=== PATIENT | male | born 1970 | race Caucasian/White ===

== ENCOUNTER 2019-11-29 23:18 | Emergency (ER) | payer OTHER, SELFPAY ==
--- NOTE | ~2019-11-29 | XR_ITS ---
EXAMINATION: XR chest 2V EXAM DATE: 11/30/2019 00:40 INDICATION: Cough, tactile fever. TECHNIQUE: Frontal and lateral projections of the chest obtained and reviewed. Comparison is made to prior examination from 07/31/2019. FINDINGS: The lungs are clear. There are no pleural effusions. The cardiomediastinal silhouette is within normal limits. There is no pneumothorax suspected. The bones and soft tissues are unremarkab le. IMPRESSION: Normal chest x-ray exam. Reviewed, dictated and finalized at location A. IMPRESSION: Normal chest x-ray exam.
[2019-11-29 23:24] VITALS: BP 188/119; PULSE 96; RESP 20; TEMP 36.3; O2SAT 98
[2019-11-29 23:38] VITALS: BP 176/103; PULSE 94; RESP 21; TEMP 37.3; O2SAT 98
[2019-11-29 23:50] VITALS: O2SAT 95
--- NOTE | 2019-11-29 23:50 | ED.URI ---
HPI - URI/Sore Throat General Chief Complaint: Upper Respiratory Infection Stated Complaint: COUGH Time Seen by Provider: 11/29/19 23:28 History of Present Illness HPI Narrative: 49-year-old male presents to the emergency department with complaint of cough, headache, chest wall pain, sore throat onset last night. Patient reports throat feels sore and swollen secondary to coughing so much. Nothing seems to make cough worse or better. He denies chest pain outside of coughing. He reports having tactile fevers, no chills. Has been taking NyQuil, melatonin, Tylenol, albuterol inhaler without relief. He denies any recent travel, exposure to anyone with illness. Related Data Allergies Allergy/AdvReac Type Severity Reaction Status Date / Time No Known Allergies Allergy Verified 11/29/19 23:43 Review of Systems Review of Systems: Narrative: CONSTITUTIONAL: Denies chills, reports tactile fevers. EYES: Denies visual changes, redness, or discharge. ENT: Denies rhinorrhea, congestion. Reports throat is sore secondary to coughing. CARDIOVASCULAR: Denies chest pain, palpitations, or edema. Reports chest wall pain with cough. RESPIRATORY: Reports intermittent productive cough since last night. GASTROINTESTINAL: Denies abdominal pain, nausea, vomiting, or diarrhea. GENITOURINARY: Denies dysuria or hematuria. SKIN: Denies rash or itching. MUSCULOSKELETAL: Denies back pain, joint pain, or myalgia. NEUROLOGIC: Denies numbness, or weakness. Reports headache. PSYCHIATRIC: Denies anxiety or depression. PMFSH Past Medical History Medical History (Updated 11/30/19 @ 02:55 by WALKER Booth) Asthma Bronchitis CAD (coronary artery disease) HLD (hyperlipidemia) HTN (hypertension) SVT (supraventricular tachycardia) Valvular heart disease Surgical History Surgical History (Updated 11/30/19 @ 02:55 by WALKER Booth) H/O heart artery stent x3 Family History Family History Mother Patient's mother is in good health Father Patient's father is Sibling Patient's brother is in good health Social History Social History Gender identity (if verbalized by the patient): Male Exam Narrative: Exam Narrative: GENERAL: Well-appearing, well-nourished, and in no acute distress. HEAD: Normocephalic, atraumatic. EYES: PERRLA and EOMI. ENT: Nares clear, no rhinorrhea or epistaxis. Mucous membranes moist. NECK: Supple. No cervical LAD. CHEST: Scattered wheezing to Rt lung moreno and diminished in bases bilat. No respiratory distress.No retractions. HEART: Regular rate and rhythm. No murmur heard. Normal peripheral pulses. ABDOMEN: Soft, nontender, nondistended, normal active bowel sounds. EXTREMITIES: Normal range of motion. No edema. SKIN: Warm, dry, no rash. NEURO: No focal deficits. Alert and oriented x3. PSYCH: Normal mood and affect. Course Course Emergency Course: Pt reports feeling much better after nebulizer. Lungs with increased aeration, wheezing scattered throughout bilat. Will order an additional neb and give PO prednisone and reassess. 0235- Pt states feeling much better with second nebulizer. Minimal coughing noted and lungs with even more aeration and very essentially CTAB. States has headache and requesting pain medication. Will order Toradol prior to d/c home. Vital Signs Vital signs: Vital Signs Temperature 36.3 C L 11/29/19 23:24 Pulse Rate 96 11/29/19 23:24 Respiratory Rate 20 11/29/19 23:24 Blood Pressure 188/119 H 11/29/19 23:24 Pulse Oximetry 98 11/29/19 23:24 Temperature 37.3 C 11/29/19 23:38 Pulse Rate 91 11/30/19 02:18 Respiratory Rate 14 11/30/19 02:18 Blood Pressure 145/104 H 11/30/19 02:00 Pulse Oximetry 99 11/30/19 02:00 MDM - URI/Sore Throat MDM Narrative Medical decision making narrative: Pt presented with 2 day hx of cough, headache and possible tactile fever. Has be
[2019-11-30] VITALS (8 sets, daily range): BP systolic 138–147; BP diastolic 92–104; PULSE 82–105; RESP 14–20; O2SAT 97–99
[2019-11-30] MEDS: IPRATROPIUM BR 0.02% INH SOLN 0.5 MG/2.5 ML VIAL INHALATION (00:06)
[2019-11-30] MEDS: ALBUTEROL SULFATE NEB 2.5 MG/0.5 ML INH 5 MG INHALATION ×2 (00:06→02:06)
[2019-11-30] MEDS: predniSONE 20 MG TABLET 60 MG PO (02:24)
[2019-11-30] MEDS: KETOROLAC (*BKC) 60 MG/2 ML VIAL IM (02:49)
== END 2019-11-30 02:55 | disposition home or self-care (01) ==
PROVIDERS: Emergency Provider Nurse Practitioner; PCP Emergency Medicine
DX: J40 Bronchitis, not specified as acute or chronic (principal); I25.10 Atherosclerotic heart disease of native coronary artery without angina pectoris; E78.5 Hyperlipidemia, unspecified; I10 Essential (primary) hypertension
CPT/HCPCS: 71046; 87804; 94640; 96372; 99284; J1885; J7512

== ENCOUNTER 2020-06-19 04:34 | Emergency (ER) | payer OTHER, SELFPAY ==
[2020-06-19] VITALS (7 sets, daily range): BP systolic 141–178; BP diastolic 86–99; PULSE 63–75; RESP 15–18; O2SAT 97–100
--- NOTE | ~2020-06-19 | XR_ITS ---
XR chest 2V DATE: 06/19/2020 05:06 INDICATION: Midline chest pain for 4 hours TECHNIQUE: PA and lateral views COMPARISON: 11/30/2019 PA and lateral chest FINDINGS: Heart size is within normal range. No hilar or mediastinal enlargement. No pulmonary infiltrate or consolidation, pleural effusion or pulmonary vascular congestion or pneumo thorax. IMPRESSION: No active cardiopulmonary disease Reviewed, dictated and finalized at location A.
--- NOTE | ~2020-06-19 | US_ITS ---
EXAMINATION: US right upper quadrant EXAM DATE: 06/19/2020 07:58 INDICATION: Right upper quadrant, epigastric pain. TECHNIQUE: Multiple grayscale and Doppler images of the abdomen right upper quadrant were obtained (b y a technologist who performed the scan) and subsequently reviewed. Comparison is made to prior exami nation from 08/14/2018. FINDINGS: The pancreatic head and body are normal in appearance. The pancreatic tail is not visualized. The l iver has normal echogenicity and contour. There are no focal liver lesions identified. There is no evidence of intrahepatic biliary duct dilation. Portal venous flow was seen in the hepatopedal, nor mal direction and has normal Doppler waveform. No right-sided hydronephrosis. Common bile duct measures 5 mm, which is normal. The gallbladder wall is borderline thickened, with m oderate amount of distention. Similar appearance on study from 2018. No sonographic evidence of alverto cholecystic fluid. There is no cholelithiases. Technologist performing exam reports patient did not demonstrate sonographic Hernandez's sign. Please note that this sign is less reliable in patients who h ave received pain medication. IMPRESSION: Borderline chronic gallbladder wall thickening. If biliary dysfunction or chronic cystiti s suspected consider HIDA scan. Reviewed, dictated and finalized at location B. IMPRESSION: Borderline chronic gallbladder wall thickening. If biliary dysfunct ion or chronic cystitis suspected consider HIDA scan.
--- NOTE | 2020-06-19 04:38 | ECG_ITS ---
Measurements Intervals [place] Rate: 73 P: 8 [place]: 194 QRS: -29 QRSD: 110 T: -10 QT: 379 QTc: 419 Interpretive Statements SINUS RHYTHM LEFT ATRIAL ENLARGEMENT INCOMPLETE RIGHT BUNDLE BRANCH BLOCK BORDERLINE T WAVE ABNORMALITY- ANT/INF LEADS BASELINE WANDER- I, II, AVR, AVL, AVF, V1-V6 BORDERLINE ECG Electronically Signed On 06-19-2020 6:53:02 CDT by Kelton Schmidt D.O.
[2020-06-19 04:54] LABS: Basophils Percent Auto 0.4 % (0.2-1.2); Eosinophils Absolute Auto 0.1 K/mm3 (0-0.3); Eosinophils Percent Auto 1.6 % (0-4.4); Hematocrit 46.6 % (42.0-52.0); Hemoglobin 16.5 g/dL (14.0-18.0); Immature Granulocyte Absolute 0.04 K/mm3 (0.00-0.031); Immature Granulocyte Percent A 0.4 % (0-0.5); Lymphocytes Percent Auto 25.8 % (18.3-44.2); Mean Corpuscular HGB Conc 35.4 g/dl (32-36); Mean Corpuscular Hemoglobin 32.2 pg (26-34); Mean Platelet Volume 9.4 fl (7.4-10.4); Monocytes Absolute Auto 0.9 K/mm3 (0.1-0.6); Monocytes Percent Auto 10.1 % (2.6-8.5); Neutrophils Absolute Auto 5.5 K/mm3 (1.3-6.7); Neutrophils Percent Auto 61.7 % (45.5-73.1); Platelet Count Result 217 k/mm3 (150-375); Red Blood Count 5.12 M/mm3 (4.6-6.20); Red Cell Distribution Width 11.9 % (11.5-14.5); White Blood Count 8.9 K/mm3 (4.5-10.0)
[2020-06-19] MEDS: ASPIRIN 81 MG CHEWABLE TABLET 324 MG PO (04:57)
[2020-06-19] MEDS: BELLADONNA ALK/PHENOB ELIX 10 ML, MAG HYDROX/ALUMINUM HYD/SIMETH 30 ML, LIDOCAINE HCL 2... PO (04:57)
[2020-06-19 05:03] LABS: INR 0.9; Prothrombin Time 11.7 Seconds (11.1-14.7)
[2020-06-19 05:06] LABS: Anion Gap 10 mmol/L (8-16); Blood Urea Nitrogen 17 mg/dL (9-20); Calcium 9.6 mg/dL (8.4-10.2); Carbon Dioxide 30 mmol/L (22-30); Chloride 99 mmol/L (98-107); Estimated CRCL calculation 67 ml/min; Estimated Glomerular Filt Rate > 60; Glucose 101 mg/dL (75-110); Potassium 4.1 mmol/L (3.4-5.0); Sodium 139 mmol/L (137-145)
[2020-06-19 05:18] LABS: Troponin I < 0.012 ng/mL (0.000-0.034)
[2020-06-19] MEDS: MORPHINE SULFATE (*CRX) 4 MG/ML INJ IV PUSH (06:07)
--- NOTE | 2020-06-19 06:16 | ED.GENADULT ---
HPI - General Adult General Chief complaint: Chest Pain <Dorian Preston MD - Last Filed: 06/19/20 06:46> Stated complaint: chest pain <Dorian Preston MD - Last Filed: 06/19/20 06:46> Time Seen by Provider: 06/19/20 04:40 <Dorian Preston MD - Last Filed: 06/19/20 06:46> History of Present Illness HPI narrative: Patient is a 49-year-old male who comes to the ER with epigastric/chest pain. Recurrent over the last day anytime he eats spicy food. He is unsettling tonight he felt like he needed to come into the ER to be evaluated. No radiation. Patient reports originally the night before last he had nausea and vomiting as well as some loose stools. Has not tried any medications. Has significant heart history and this feels markedly different. <Dorian Preston MD - Last Filed: 06/19/20 06:46> Related Data Allergies/adverse reactions: Allergies Allergy/AdvReac Type Severity Reaction Status Date / Time No Known Allergies Allergy Verified 11/29/19 23:43 <Dorian Preston MD - Last Filed: 06/19/20 06:46> Review of Systems Review of Systems: All systems reviewed & are unremarkable except as noted in HPI and below <Dorian Preston MD - Last Filed: 06/19/20 06:46> Constitutional: Constitutional: Denies chills, Denies fever(s) and Denies weakness <Dorian Preston MD - Last Filed: 06/19/20 06:46> ENT: Denies nasal congestion and Denies sore throat <Dorian Preston MD - Last Filed: 06/19/20 06:46> Cardiovascular: Cardiovascular: Denies chest pain, Denies rapid heart rate and Denies radiating jaw, neck or arm pain <Dorian Preston MD - Last Filed: 06/19/20 06:46> Respiratory: Respiratory: Denies cough and Denies dyspnea <Dorian Preston MD - Last Filed: 06/19/20 06:46> Gastrointestinal: Gastrointestinal: Reports abdominal pain, Reports diarrhea, Reports nausea and Reports vomiting <Dorian Preston MD - Last Filed: 06/19/20 06:46> Genitourinary: Genitourinary: Denies dysuria and Denies urinary frequency <Dorian Preston MD - Last Filed: 06/19/20 06:46> PMFSH Past Medical History Medical History: Medical History (Updated 06/19/20 @ 10:28 by Maine Herring MD) Asthma Bronchitis CAD (coronary artery disease) HLD (hyperlipidemia) HTN (hypertension) SVT (supraventricular tachycardia) Valvular heart disease <Dorian Preston MD - Last Filed: 06/19/20 06:46> Surgical History Surgical History: Surgical History (Updated 11/30/19 @ 02:55 by WALKER Booth) H/O heart artery stent x3 <Dorian Preston MD - Last Filed: 06/19/20 06:46> Social History Social History: Social History Gender identity (if verbalized by the patient): Male <Dorian Preston MD - Last Filed: 06/19/20 06:46> Exam Narrative: Exam Narrative: GENERAL: Well-appearing, well-nourished, and in no acute distress. HEAD: Normocephalic, atraumatic. ENT: Mucous membranes moist. CHEST: Clear to auscultation. No respiratory distress. HEART: Regular rate and rhythm. Normal peripheral pulses. ABDOMEN: Soft, mild epigastric and right upper quadrant tenderness without Heranndez sign, nondistended. EXTREMITIES: Normal range of motion. No edema. NEURO: Alert and oriented x3. PSYCH: Normal mood and affect. <Dorian Preston MD - Last Filed: 06/19/20 06:46> Course Course Emergency Course: Patient still has some mild discomfort in his epigastrium after GI cocktail and morphine. Will obtain ultrasound right upper quadrant to rule out cholecystitis/biliary colic. <Dorian Preston MD - Last Filed: 06/19/20 06:46> Reevaluation(s) Reevaluation #1: I discussed with patient that labs are unremarkable. HE has some mild RUQ tenderness. Gallbladder with mildly thickened. I spoke with General surgeon Dr. Gannon and he recommends discharging with pain medication on low fat diet with outpatient follow up. <Maine Herring MD - Last Filed:
[2020-06-19 06:21] LABS: Alanine Aminotransferase 54 U/L (4-50); Albumin Level 4.6 g/dL (3.5-5.1); Alkaline Phosphatase 93 U/L (38-126); Aspartate Amino Transferase 41 U/L (17-59); Bilirubin,Total 0.6 mg/dL (0.2-1.3); Lipase 196 U/L (23-300)
[2020-06-19] MEDS: DICYCLOMINE HCL INJ 20 MG/2 ML VIAL IM (09:28)
[2020-06-19 09:34] LABS: Troponin I < 0.012 ng/mL (0.000-0.034)
== END 2020-06-19 10:40 | disposition home or self-care (01) ==
PROVIDERS: Emergency Provider Emergency Medicine; PCP Emergency Medicine
DX: R10.13 Epigastric pain (principal); J45.909 Unspecified asthma, uncomplicated; I25.10 Atherosclerotic heart disease of native coronary artery without angina pectoris; E78.5 Hyperlipidemia, unspecified; I10 Essential (primary) hypertension; Z95.5 Presence of coronary angioplasty implant and graft; I45.10 Unspecified right bundle-branch block
CPT/HCPCS: 36415; 71046; 76705; 80048; 80076; 83690; 84484; 85025; 85610; 85730; 93005; 96372; 96374; 99284; A9270; J0500; J2270

== ENCOUNTER 2020-10-10 18:26 | Emergency (ER) | payer OTHER, SELFPAY ==
--- NOTE | 2020-10-10 18:37 | ED.GENADULT ---
HPI - General Adult General Chief complaint: Dental/Oral Stated complaint: Tooth Pain Time Seen by Provider: 10/10/20 18:38 Source: patient and RN notes reviewed Mode of arrival: ambulatory Limitations: no limitations History of Present Illness HPI narrative: 50-year-old male presents with concern for right upper dental pain. Reports of broken tooth for which he has had infection in before. Reports he has a dentist appointment in 2 days and knows he needs to have oral surgery for the tooth. Reports pain with eating, reports facial pain and pressure. Denies fever, trouble swallowing, foul taste in his mouth, headache. Reports he has been taking ibuprofen and Tylenol and using warm salt water rinses. MD complaint: dental pain Related Data Home Medications Medication Instructions Recorded Confirmed atorvastatin 40 mg PO DAILY 09/19/19 10/10/20 citalopram [Celexa] 20 mg PO DAILY 09/19/19 10/10/20 metoprolol tartrate [Lopressor] 50 mg PO Q12H 09/19/19 10/10/20 mecobalamin (vitamin B12) [B12 1,000 mcg PO DAILY 10/10/20 10/10/20 Active] Allergies Allergy/AdvReac Type Severity Reaction Status Date / Time No Known Allergies Allergy Unknown Verified 08/02/20 11:52 Review of Systems Review of Systems: Narrative: CONSTITUTIONAL: Denies malaise, chills, sweats, or fever. EYES: Denies visual changes, redness, or discharge. ENT: Denies rhinorrhea, congestion, sinus pain, otalgia or sore throat. Reports right upper dental pain, facial swelling, facial pain CARDIOVASCULAR: Denies chest pain, palpitations, or edema. RESPIRATORY: Denies cough or dyspnea. GASTROINTESTINAL: Denies abdominal pain, nausea, vomiting MUSCULOSKELETAL: Denies myalgia. NEUROLOGIC: Denies headache. All systems reviewed & are unremarkable except as noted in HPI and below PMFSH Past Medical History Medical History (Updated 10/10/20 @ 18:48 by Jeanie Judd NP) Asthma Bronchitis CAD (coronary artery disease) HLD (hyperlipidemia) HTN (hypertension) Hypercholesterolemia Hypertension SVT (supraventricular tachycardia) Valvular heart disease Surgical History Surgical History (Updated 08/02/20 @ 11:52 by Mauricio Parks) H/O heart artery stent x3 History of tonsillectomy Family History Family History (System 08/02/20 @ 11:52 by Mauricio Parks) Mother Patient's mother is in good health Father Patient's father is Sibling Patient's brother is in good health Social History Social History (System 08/02/20 @ 11:52 by Mauricio Parks) Smoking packs per day: 0.12 Smoking cigarettes per day: 2.4 Gender identity (if verbalized by the patient): Male Comments At time of signature, agree with nursing past medical, surgical, social and family history. There is no relevant family history pertinent to the presenting complaint Exam Narrative: Exam Narrative: GENERAL: Well-appearing, well-nourished, and in no acute distress. HEAD: Normocephalic, atraumatic. EYES: PERRLA, conjunctivae clear ENT: Nares clear. Mucous membranes moist. Tooth #4 broken, with decay, erythema surrounding the gum, mild right upper facial swelling. No drooling NECK: Supple. CHEST: No respiratory distress. Speaks in full sentences. HEART: Regular rate and rhythm. SKIN: Warm, dry, no rash. NEURO: Alert and oriented x3. PSYCH: Normal mood and affect Course Course Emergency Course: Patient is aware of diagnosis, understands and agrees to treatment plan. Anticipatory guidance given. Patient agrees to follow-up as directed and is aware of reasons to seek care at the emergency department. Portions of this record may have been created with voice recognition software Vital Signs Vital signs: Vital Signs Temperature 97.6 F 10/10/20 18:40 Pulse Rate 69 10/10/20 18:40 Respiratory Rate 18 10/10/20 18:40 Blood Pressure 124/81 10/10/20 18:40 Pulse Oximetry 98 10/10/20 18:40 Temperature 97.6 F 10/10/20 18:40 Pulse Rate 69
[2020-10-10 18:40] VITALS: BP 124/81; PULSE 69; RESP 18; TEMP 36.4; O2SAT 98
== END 2020-10-10 18:49 | disposition home or self-care (01) ==
PROVIDERS: Emergency Provider Nurse Practitioner; PCP Emergency Medicine
DX: K04.7 Periapical abscess without sinus (principal); F17.210 Nicotine dependence, cigarettes, uncomplicated; J45.909 Unspecified asthma, uncomplicated; I25.10 Atherosclerotic heart disease of native coronary artery without angina pectoris; E78.5 Hyperlipidemia, unspecified; I10 Essential (primary) hypertension; E78.00 Pure hypercholesterolemia, unspecified
CPT/HCPCS: 99213; G0463

== ENCOUNTER 2020-11-08 11:36 | Outpatient (CLI) | payer OTHER, SELFPAY ==
--- NOTE | ~2020-11-08 | NM_ITS ---
EXAMINATION: NM hepatobiliary w pharm DATE: 11/08/2020 14:42 INDICATION: Abdominal pain. COMPARISON: Ultrasound 06/19/2020 TECHNIQUE: 4 mCi Tc-99m mebrofenin (Choletec) was administered intravenously. Scintigraphic images o f the abdomen were obtained for one hour. Then, 1.8 mcg sincalide (Kinevac) IV was administered, and imaging was continued for 30 minutes. FINDINGS: There is normal clearance of radiotracer from the blood pool. There is homogeneous tracer u ptake by the liver. Activity progresses to the bowel and gallbladder. Gallbladder ejection fraction (GBEF) was 33%. Note that most patients with gallbladder dysfunction have GBEF < 35%, which overlaps with the broad normal range of 10-90%. IMPRESSION: 1. Gallbladder ejection fraction in the lower range of normal. Note that this value overlaps with th e range of values that may be seen with gallbladder dysfunction and/or chronic cholecystitis if there is appropriate clinical correlation. Reviewed, dictated and finalized at location A. RING SERVICE MANAGER IMPRESSION: 1. Gallbladder ejection fraction in the lower range of normal. Note that this value overlaps with the range of values that may be seen with gallbladder dysfu nction and/or chronic cholecystitis if there is appropriate clinical correlatio nMoody
== END 2020-11-08 11:37 | disposition home or self-care (01) ==
LOC: ANHIMG 11:42
PROVIDERS: PCP Emergency Medicine; Visit Provider Emergency Medicine
DX: R10.9 Unspecified abdominal pain (principal); K82.8 Other specified diseases of gallbladder
CPT/HCPCS: 78227; A9537; J2805

== ENCOUNTER 2020-11-26 09:43 | Emergency (ER) | payer OTHER, SELFPAY ==
--- NOTE | ~2020-11-26 | XR_ITS ---
EXAMINATION: XR chest 2V DATE: 11/26/2020 10:35 INDICATION: Chest pain. Shortness of breath. TECHNIQUE: PA and lateral views of the chest were obtained. COMPARISON: Chest radiograph dated 06/19/2020 FINDINGS: The lungs remain clear with no focal airspace opacities, pulmonary edema, pleural effusion or pneumot horax. The cardiomediastinal silhouette is normal. Mild thoracic spondylosis. IMPRESSION: 1. No acute cardiopulmonary disease. Reviewed, dictated and finalized at location B.
--- NOTE | 2020-11-26 09:59 | ED.GENADULT ---
HPI - General Adult General Chief complaint: Upper Respiratory Infection Stated complaint: Side pain,Chest Pain Time Seen by Provider: 11/26/20 09:59 Source: patient Mode of arrival: ambulatory Limitations: no limitations History of Present Illness HPI narrative: 50-year-old male patient presents to the [facility] with complaints of cold symptoms for the past 2 days. Patient states he has had a stuffy nose, runny nose, and headache. Patient also reports a little bit of a cough, chest congestion and left-sided chest pain. Patient states this is all been going on for the past 2 days. Patient states he did attend a celebration of life over the weekend with 50+ people and they did have a lot of close contact at that time. Patient denies being positive for Covid in the last 3 months. Patient denies getting a Covid vaccine. Patient also reporting some abdominal cramping but states he is still passing normal bowel movements and his last normal one was this morning. Denies any vomiting or diarrhea. Patient was told that he did have some gallbladder issues and that he needs his gallbladder removed. Patient states the only thing he is taking for his symptoms is Nexium for the abdominal cramping. Patient also reports that he is currently on amoxicillin for an abscessed tooth. Related Data Home Medications Medication Instructions Recorded Confirmed alprazolam [Xanax] 0.25 mg PO Q4-6H 11/26/20 11/26/20 amoxicillin [Amoxil] 875 mg PO Q12H 11/26/20 11/26/20 atorvastatin [Lipitor] 40 mg PO DAILY 11/26/20 11/26/20 citalopram [Celexa] 20 mg PO DAILY 11/26/20 11/26/20 hydrocodone-acetaminophen [[place]] 1 tablet PO Q6H 11/26/20 11/26/20 metoprolol succinate [Toprol XL] 50 mg PO BID 11/26/20 11/26/20 Allergies Allergy/AdvReac Type Severity Reaction Status Date / Time No Known Allergies Allergy Unknown Verified 11/26/20 10:24 Review of Systems Review of Systems: Narrative: CONSTITUTIONAL: Denies fever, chills, or sweats. Positive body aches EYES: Denies visual changes, redness, or discharge. ENT: Positive rhinorrhea, congestion, denies sore throat, or otalgia. CARDIOVASCULAR: Denies chest pain, palpitations, or edema. RESPIRATORY: Positive cough with mild intermittent dyspnea. GASTROINTESTINAL: Positive abdominal pain, denies nausea, vomiting, or diarrhea. GENITOURINARY: Denies dysuria or hematuria. SKIN: Denies rash or itching. MUSCULOSKELETAL: Denies back pain, joint pain, or myalgia. NEUROLOGIC: Positive headache, denies numbness, or weakness. PSYCHIATRIC: Denies anxiety or depression. [facility] Past Medical History Medical History Asthma Bronchitis CAD (coronary artery disease) HLD (hyperlipidemia) HTN (hypertension) Hypercholesterolemia Hypertension SVT (supraventricular tachycardia) Valvular heart disease Surgical History Surgical History H/O heart artery stent x3 History of tonsillectomy Family History Family History Mother Patient's mother is in good health Father Patient's father is Sibling Patient's brother is in good health Social History Social History Smoking packs per day: 0.12 Smoking cigarettes per day: 2.4 Gender identity (if verbalized by the patient): Male Comments At the time of my signature I agree with nursing past medical history, surgical, social, and family history. There is no relevant family history pertinent to the presenting complaint. Exam Narrative: Exam Narrative: GENERAL: Well-appearing, well-nourished, and in no acute distress. HEAD: Normocephalic, atraumatic. EYES: PERRLA and EOMI. ENT: Nares with erythema and edema noted bilaterally but more so into the right nare, no rhinorrhea or epistaxis. Mucous membranes moist. Bilateral TMs are clear no
[2020-11-26 10:10] VITALS: BP 137/100; PULSE 67; RESP 16; TEMP 36.7; O2SAT 98
--- NOTE | 2020-11-26 10:37 | ECG_ITS ---
Measurements Intervals [place] Rate: 62 P: 14 [place]: 202 QRS: 11 QRSD: 123 T: 30 QT: 391 QTc: 400 Interpretive Statements SINUS RHYTHM POSSIBLE LEFT ATRIAL ENLARGEMENT INCOMPLETE RIGHT BUNDLE BRANCH BLOCK BORDERLINE ECG Electronically Signed On 11-26-2020 15:21:11 CDT by Kelton Schmidt D.O.
[2020-11-27 14:35] LABS: SARS-CoV-2 RNA PCR Negative
== END 2020-11-26 10:50 | disposition home or self-care (01) ==
PROVIDERS: Emergency Provider Nurse Practitioner Family; PCP Emergency Medicine
DX: J06.9 Acute upper respiratory infection, unspecified (principal); Z20.822 Contact with and (suspected) exposure to COVID-19; F17.210 Nicotine dependence, cigarettes, uncomplicated; J45.909 Unspecified asthma, uncomplicated; I25.10 Atherosclerotic heart disease of native coronary artery without angina pectoris; E78.5 Hyperlipidemia, unspecified; I10 Essential (primary) hypertension; E78.00 Pure hypercholesterolemia, unspecified
CPT/HCPCS: 71046; 87426; 87804; 93005; 99213; C9803; G0463; U0003; U0005

== ENCOUNTER → 2020-12-16 00:22 | Outpatient (CLI) | payer OTHER, SELFPAY ==
[2020-12-16 19:28] LABS: SARS-CoV-2 RNA PCR Negative
== END ==
PROVIDERS: PCP Emergency Medicine; Visit Provider Surgery
DX: Z01.812 Encounter for preprocedural laboratory examination (principal); Z20.822 Contact with and (suspected) exposure to COVID-19
CPT/HCPCS: 80076; 82150; 83690; 86850; 86900; 86901; C9803; U0003; U0005

== ENCOUNTER 2020-12-16 08:19 | Outpatient (CLI) | payer OTHER, SELFPAY ==
[2020-12-16 08:51] LABS: Alanine Aminotransferase 92 U/L (4-50); Albumin Level 4.5 g/dL (3.5-5.1); Alkaline Phosphatase 86 U/L (38-126); Amylase 61 U/L (30-110); Aspartate Amino Transferase 54 U/L (17-59); Bilirubin,Total 1.4 mg/dL (0.2-1.3); Lipase 140 U/L (23-300)
== END 2020-12-16 08:20 | disposition home or self-care (01) ==
PROVIDERS: PCP Emergency Medicine; Visit Provider Surgery
DX: Z01.812 Encounter for preprocedural laboratory examination (principal); K81.9 Cholecystitis, unspecified
CPT/HCPCS: 36415; 80076; 82150; 83690; 86850; 86900; 86901

== ENCOUNTER 2020-12-19 01:42 | Day surgery (SDC) | payer OTHER, SELFPAY ==
[2020-12-13 10:04] VITALS: BMI 29.2
[2020-12-19] VITALS (11 sets, daily range): BP systolic 109–177; BP diastolic 70–108; PULSE 54–78; RESP 16–20; TEMP 36–37; O2SAT 94–100
--- NOTE | 2020-12-19 10:45 | WPDANESEPPF ---
Anes - Initial Pre Proc Eval Procedure: Operation Date: 12/19/20 12:00 Proposed Procedures p Laparoscopic Cholecystectomy - Melania Lopez MD Date/Time: 12/19/20 10:45 Surgeon: Melania Lopez MD Pre Op Diagnosis: cholecystitis Patient Data Age: 50 Gender: M Height: 5 ft 6 in Weight: 83 kg Allergies Allergy/AdvReac Type Severity Reaction Status Date / Time No Known Allergies Allergy Unknown Verified 12/19/20 10:30 Home Medications Medication Instructions Recorded Confirmed Type albuterol sulfate [Ventolin HFA] 2 puff INHALATION .Q4 hours PRN 11/26/20 12/19/20 Rx #18 gm alprazolam [Xanax] 0.25 mg PO Q4-6H 11/26/20 12/19/20 History atorvastatin [Lipitor] 40 mg PO DAILY 11/26/20 12/19/20 History benzonatate 200 mg PO TID PRN 10 Days #30 cap 11/26/20 12/19/20 Rx NS cetirizine [Zyrtec] 10 mg PO DAILY #30 tablet 11/26/20 12/19/20 Rx citalopram [Celexa] 20 mg PO DAILY 11/26/20 12/19/20 History hydrocodone-acetaminophen [[place]] 1 tablet PO Q6H 11/26/20 12/19/20 History metoprolol succinate [Toprol XL] 50 mg PO BID 11/26/20 12/19/20 History Patient hx anesthesia problems: none Family hx anesthesia problems: none PMFSH Past Medical History Medical History Asthma Bronchitis CAD (coronary artery disease) Heart attack HLD (hyperlipidemia) HTN (hypertension) Hypercholesterolemia Hypertension Mitral valve prolapse SVT (supraventricular tachycardia) Valvular heart disease Surgical History Surgical History H/O heart artery stent x3 History of tonsillectomy Family History Family History Mother Patient's mother is in good health Father Patient's father is Lung disease Sibling Patient's brother is in good health Social History Social History Smoking packs per day: 1 Smoking cigarettes per day: 20.0 Years smoked: 20 Smoking pack-years: 20.00 Smoking status: Current every day smoker Tobacco type: cigarettes Additional smoking assessment comments: STOPPED 2013 Alcohol intake: current Drinks per week: 4 Substance use: never Living arrangements: with family 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 Questions were solicited and answers provided to the satisfaction of the patient/family/POA.
[2020-12-19] MEDS: LACTATED RINGERS 1,000 ML 30 ML IV CONT ×2 (10:54→12:54)
[2020-12-19] MEDS: KETOROLAC 15 MG/ML VIAL (*BKC) IV PUSH (10:54)
--- NOTE | 2020-12-19 11:57 | WPDHPUPDATE1 ---
History and Physical Update Update Date/Time: 12/19/20 11:57 History and Physical has been reviewed, including an updated exam of the patient. There are NO changes in the patient's condition. Risks, benefits, and alternatives have been discussed and questions answered. Patient agrees to proceed with procedure.
[2020-12-19] MEDS: ceFAZolin 2 GM/D5W 50 ML 2 GM/50 ML BAG IVPB (12:02)
[2020-12-19] MEDS: BUPIVACAINE/EPINEPHRINE 0.5% 30 ML VIAL INFILTRATE (12:31)
--- NOTE | 2020-12-19 12:55 | PM.PROC ---
Procedure Note - Detailed Date of procedure: 12/19/20 Pre-op diagnosis: cholecystitis acute cholecystitis Post-op diagnosis: same Procedure performed: laparoscopic cholecystectomy Description of procedure: The patient was taken to the operating room placed in the supine position. After adequate induction of general anesthesia, the patient was prepped and draped in normal sterile fashion. A time-out was then performed to verify the patient's identity as well as the procedure being performed. I then made a 5 mm incision in the infraumbilical region. Through this, a Veress needle was placed into the peritoneal cavity and CO2 gas was then insufflated. After adequate pneumoperitoneum was achieved, the Veress needle was removed and a 5 mm optiview trocar was placed through this incision under direct visualization. I then placed the laparoscope through this trocar site and under direct visualization placed a further 12 mm subxiphoid port as well as 2 additional 5 mm ports in the right upper abdomen. The gallbladder was then identified and was noted to be moderately inflamed. I was able to place a grasper at the dome of the gallbladder and this was retracted anterior and cephalad up over the liver. A 2nd retractor was then placed at the infundibulum and retracted laterally, this allowed visualization of the triangle of Calot. I then was able to visualize the cystic duct in its entirety from its proximal insertion into the gallbladder, to its distal junction with the common hepatic/common bile duct junction. At this point, I carefully skeletonized the proximal cystic duct with the [place] dissector. I then clipped and transected the proximal cystic duct. Next I visualized the cystic artery. Again the artery was skeletonized, clipped, and transected. I then used the Bovie cautery to take down the peritoneal attachments of the gallbladder off the liver bed. Once the gallbladder specimen was completely detached, an endo-pouch was placed through the 12 mm port site. I then placed the gallbladder specimen into the Endo pouch and removed the endo-pouch from the 12 mm port site. The specimen will now be sent to pathology for further review. I then copiously irrigated the right upper quadrant. Hemostasis was noted in the liver bed, the clips were noted to be in good position on both the cystic duct stump and the cystic artery stump. No other pathology was noted in the right upper quadrant. I then moved the laparoscope to the subxiphoid port. No iatrogenic injury or other pathology was noted in the lower abdomen. I then closed the 12 mm trocar site under direct visualization using the Avinash cone and 0 Vicryl suture. At this point, the abdomen was desufflated and all ports removed. All port sites were then closed with 4.O Monocryl subcuticular sutures. Dermabond was placed on each incision. The patient tolerated the procedure well, was extubated in the operating room postoperative and will be transferred to the recovery room in stable condition. Implants: none Anesthesia: GETA Surgeon: Melania Lopez MD Estimated blood loss (mL): 10 Drains: No Packing: No Pathology: yes Complications: No immediate complications Condition: stable Disposition: PACU Findings: chronic cholecystitis
[2020-12-19] MEDS: hydrALAZINE HCL 20 MG/ML VIAL 10 MG IV PUSH (13:23)
[2020-12-19] MEDS: fentaNYL CITRATE INJ (*CRX) 100 MCG/2 ML VIAL 25 MCG IV PUSH ×6 (13:39→15:10)
[2020-12-19] MEDS: oxyCODONE HCL (*CRX) 5 MG TAB IR PO (14:26)
== END 2020-12-19 15:45 | disposition home or self-care (01) ==
PROVIDERS: PCP Emergency Medicine; Visit Provider Surgery
PROC: 0FT44ZZ Resection of Gallbladder, Percutaneous Endoscopic Approach (ICD-10-PCS; CPT 47562; principal; 2020-12-19 12:00)
DX: K81.1 Chronic cholecystitis (principal); J45.909 Unspecified asthma, uncomplicated; I10 Essential (primary) hypertension; E78.5 Hyperlipidemia, unspecified; I25.10 Atherosclerotic heart disease of native coronary artery without angina pectoris; I25.2 Old myocardial infarction; I34.1 Nonrheumatic mitral (valve) prolapse; I47.1 Supraventricular tachycardia; Z79.51 Long term (current) use of inhaled steroids; Z95.5 Presence of coronary angioplasty implant and graft; Z87.891 Personal history of nicotine dependence
CPT/HCPCS: 47562; 88304; A9270; J0360; J0690; J1100; J1885; J2250; J2370; J2405; J2704; J2710; J3010; J7030; J7120

== ENCOUNTER 2021-03-13 18:21 | Emergency (ER) | payer OTHER, SELFPAY ==
[2021-03-13 18:30] VITALS: BP 135/95; PULSE 87; RESP 16; TEMP 37.1; O2SAT 97
--- NOTE | 2021-03-13 18:31 | ED.DENTAL ---
HPI - Dental/Oral General Chief complaint: Upper Respiratory Infection Stated complaint: Congestion,Tooth Pain Time Seen by Provider: 03/13/21 18:31 Source: patient and RN notes reviewed Mode of arrival: ambulatory Limitations: no limitations History of Present Illness HPI Narrative: 50-year-old male presents to the [facility] with complaints of dental pain and sinus pain on the right side. Patient does state that he has not been able to follow up with a dental provider due to insurance reasons. Has had a cracked tooth to the right upper for awhile and was told that a dental surgeon needs to remove it. Has had multiple infections. States that it feels like the infection from his tooth is going into his right sinuses. Minor swelling noted. Denies fevers. Every time he has an infection states they give him Augmentin. Last Augmentin dose was in November Related Data Home Medications Medication Instructions Recorded Confirmed alprazolam [Xanax] 0.25 mg PO Q4-6H 11/26/20 01/01/21 atorvastatin [Lipitor] 40 mg PO DAILY 11/26/20 01/01/21 citalopram [Celexa] 20 mg PO DAILY 11/26/20 01/01/21 hydrocodone-acetaminophen 1 tablet PO Q6H 11/26/20 01/01/21 metoprolol succinate [Toprol XL] 50 mg PO BID 11/26/20 01/01/21 methylphenidate HCl 03/13/21 Allergies Allergy/AdvReac Type Severity Reaction Status Date / Time No Known Allergies Allergy Unknown Verified 03/13/21 18:37 Review of Systems Review of Systems: All systems reviewed & are unremarkable except as noted in HPI and below Constitutional: Constitutional: Reports no additional constitutional complaints, Denies chills and Denies fever(s) Eyes: Eyes: Reports no additional eye complaints ENT: Reports as per HPI and Reports nasal congestion Comments: Right upper dental pain Cardiovascular: Cardiovascular: Reports no additional cardiovascular complaints and Denies chest pain Respiratory: Respiratory: Reports no additional respiratory complaints, Denies cough and Denies dyspnea Gastrointestinal: Gastrointestinal: Reports no additional gastrointestinal complaints Musculoskeletal: Musculoskeletal: Reports no additional musculoskeletal complaints Integumentary/Breasts: Skin/Breast: Reports system reviewed and no additional complaints, except as docu Neurologic: Reports system reviewed and no additional complaints, except as documented Psychiatric: Psychiatric: Reports no additional psychiatric complaints Allergic/Immunologic: Allergic/Immunologic: Reports no additional allergic/immunologic complaints [facility] Past Medical History Medical History Asthma Bronchitis CAD (coronary artery disease) Heart attack HLD (hyperlipidemia) HTN (hypertension) Hypercholesterolemia Hypertension Mitral valve prolapse SVT (supraventricular tachycardia) Valvular heart disease Surgical History Surgical History H/O heart artery stent x3 History of tonsillectomy Hx laparoscopic cholecystectomy 12/19/20 Family History Family History Mother Patient's mother is in good health Father Patient's father is Lung disease Sibling Patient's brother is in good health Social History Social History Smoking packs per day: 1 Smoking cigarettes per day: 20.0 Years smoked: 20 Smoking pack-years: 20.00 Smoking status: Current every day smoker Tobacco type: cigarettes Alcohol intake: current Drinks per week: 4 Substance use: never 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 There is no relevant family history pertinent to the patient complaint. Exam Const: Ge
== END 2021-03-13 18:52 | disposition home or self-care (01) ==
PROVIDERS: Emergency Provider Nurse Practitioner; PCP Emergency Medicine
DX: K04.7 Periapical abscess without sinus (principal); F17.210 Nicotine dependence, cigarettes, uncomplicated; J45.909 Unspecified asthma, uncomplicated; I25.10 Atherosclerotic heart disease of native coronary artery without angina pectoris; I25.2 Old myocardial infarction; E78.5 Hyperlipidemia, unspecified; I10 Essential (primary) hypertension; E78.00 Pure hypercholesterolemia, unspecified; I34.1 Nonrheumatic mitral (valve) prolapse; Z95.5 Presence of coronary angioplasty implant and graft
CPT/HCPCS: 99213; G0463

== ENCOUNTER 2021-07-21 12:41 | Emergency (ER) | payer OTHER, SELFPAY ==
--- NOTE | 2021-07-21 12:45 | ED.URI ---
HPI - URI/Sore Throat General Chief Complaint: Upper Respiratory Infection Stated Complaint: cough/sob/loss of smell Time Seen by Provider: 07/21/21 12:45 Source: patient, RN notes reviewed and old records reviewed Mode of arrival: ambulatory Limitations: no limitations History of Present Illness HPI Narrative: 50-year-old male presents to [facility] care with complaints of a productive cough, congestion, body aches and a sore throat. Has a history of cardiac stents, hypertension, high cholesterol. Also has a history of bronchitis. Patient is a smoker. No treatment prior to arrival patient reports symptoms have been going on for almost 2 weeks. No fevers. Denies chest pain. Related Data Home Medications Medication Instructions Recorded Confirmed alprazolam [Xanax] 0.25 mg PO Q4-6H 11/26/20 07/21/21 atorvastatin [Lipitor] 40 mg PO DAILY 11/26/20 07/21/21 citalopram [Celexa] 20 mg PO DAILY 11/26/20 07/21/21 hydrocodone-acetaminophen 1 tablet PO Q6H 11/26/20 07/21/21 metoprolol succinate [Toprol XL] 50 mg PO BID 11/26/20 07/21/21 methylphenidate HCl 10 mg DAILY 03/13/21 07/21/21 Allergies Allergy/AdvReac Type Severity Reaction Status Date / Time No Known Allergies Allergy Unknown Verified 03/13/21 18:37 Review of Systems Review of Systems: All systems reviewed & are unremarkable except as noted in HPI and below Constitutional: Constitutional: Reports no additional constitutional complaints, Denies chills and Denies fever(s) Eyes: Eyes: Reports no additional eye complaints and Denies change in vision ENT: Reports as per HPI and Reports sore throat Cardiovascular: Cardiovascular: Reports no additional cardiovascular complaints, Denies chest pain and Denies radiating jaw, neck or arm pain Respiratory: Respiratory: Reports as per HPI, Reports chest congestion, Reports cough, Denies dyspnea and Denies wheezing Gastrointestinal: Gastrointestinal: Reports no additional gastrointestinal complaints, Denies abdominal pain, Denies diarrhea, Denies nausea and Denies vomiting Musculoskeletal: Musculoskeletal: Reports no additional musculoskeletal complaints Integumentary/Breasts: Skin/Breast: Reports system reviewed and no additional complaints, except as docu Neurologic: Reports system reviewed and no additional complaints, except as documented Psychiatric: Psychiatric: Reports no additional psychiatric complaints Allergic/Immunologic: Allergic/Immunologic: Reports no additional allergic/immunologic complaints [facility] Past Medical History Medical History Asthma Bronchitis CAD (coronary artery disease) Heart attack HLD (hyperlipidemia) HTN (hypertension) Hypercholesterolemia Hypertension Mitral valve prolapse SVT (supraventricular tachycardia) Valvular heart disease Surgical History Surgical History H/O heart artery stent x3 History of tonsillectomy Hx laparoscopic cholecystectomy 12/19/20 Family History Family History Mother Patient's mother is in good health Father Patient's father is Lung disease Sibling Patient's brother is in good health Social History Social History Smoking packs per day: 1 Smoking cigarettes per day: 20.0 Years smoked: 20 Smoking pack-years: 20.00 Smoking status: Current every day smoker Tobacco type: cigarettes Alcohol intake: current Drinks per week: 4 Substance use: never 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 There is no relevant family history pertinent to the patient complaint. Exam Const: General: healthy appearing, no acute distress and
[2021-07-21 12:50] VITALS: BP 144/97; PULSE 77; RESP 16; TEMP 36.7; O2SAT 100
== END 2021-07-21 13:13 | disposition home or self-care (01) ==
PROVIDERS: Emergency Provider Nurse Practitioner; PCP Emergency Medicine
DX: J40 Bronchitis, not specified as acute or chronic (principal); F17.210 Nicotine dependence, cigarettes, uncomplicated; J45.909 Unspecified asthma, uncomplicated; E78.5 Hyperlipidemia, unspecified; I10 Essential (primary) hypertension; E78.00 Pure hypercholesterolemia, unspecified; I34.1 Nonrheumatic mitral (valve) prolapse; I25.2 Old myocardial infarction; I25.10 Atherosclerotic heart disease of native coronary artery without angina pectoris; Z95.5 Presence of coronary angioplasty implant and graft; I25.110 Atherosclerotic heart disease of native coronary artery with unstable angina pectoris
CPT/HCPCS: 99213; G0463

== ENCOUNTER 2022-04-29 10:35 | Emergency (ER) | payer OTHER, SELFPAY ==
[2022-04-29 10:41] VITALS: BP 136/90; PULSE 69; RESP 16; TEMP 36.4; O2SAT 98
--- NOTE | 2022-04-29 10:41 | ED.URI ---
HPI - URI/Sore Throat General Chief Complaint: Upper Respiratory Infection Stated Complaint: cough /sob Time Seen by Provider: 04/29/22 11:08 Source: patient and RN notes reviewed Mode of arrival: ambulatory Limitations: no limitations History of Present Illness HPI Narrative: 51-year-old male presents concern for 2-day history of head congestion, chest congestion, cough, headache. Reports he feels like he is not getting enough oxygen . Reports it is hard to get a full breath. He reports he was in a large crowd over the weekend, he denies any known particular sick contacts. He reports chills, denies fever. He reports he has been taking NyQuil and Benadryl with temporary symptom relief. MD elicited complaint: cough Related Data Home Medications Medication Instructions Recorded Confirmed alprazolam 0.25 mg tablet (Xanax) 0.25 mg PO Q4-6H 11/26/20 07/21/21 atorvastatin 40 mg tablet (Lipitor) 40 mg PO DAILY 11/26/20 07/21/21 citalopram 20 mg tablet (Celexa) 20 mg PO DAILY 11/26/20 07/21/21 metoprolol succinate 50 mg 50 mg PO BID 11/26/20 07/21/21 tablet,extended release 24 hr (Toprol XL) methylphenidate HCl 10 mg tablet 10 mg DAILY 03/13/21 07/21/21 hydrocodone 5 mg-acetaminophen 325 tablet 04/29/22 mg tablet Allergies Allergy/AdvReac Type Severity Reaction Status Date / Time No Known Allergies Allergy Unknown Verified 04/29/22 10:47 Review of Systems Review of Systems: CONSTITUTIONAL: Reports malaise, chills. Denies sweats, or fever. EYES: Denies visual changes, redness, or discharge. ENT: Reports rhinorrhea, congestion. Denies sinus pain, otalgia and sore throat. CARDIOVASCULAR: Denies chest pain, palpitations, or edema. RESPIRATORY: Reports cough, feeling like he cannot get a full breath Denies dyspnea. GASTROINTESTINAL: Denies abdominal pain, nausea, vomiting, diarrhea SKIN: Denies rash or itching. MUSCULOSKELETAL: Denies myalgia. NEUROLOGIC: Reports headache. All systems reviewed & are unremarkable except as noted in HPI and below PMFSH Past Medical History Medical History Asthma Bronchitis CAD (coronary artery disease) Heart attack HLD (hyperlipidemia) HTN (hypertension) Hypercholesterolemia Hypertension Mitral valve prolapse SVT (supraventricular tachycardia) Valvular heart disease Surgical History Surgical History H/O heart artery stent x3 History of tonsillectomy Hx laparoscopic cholecystectomy 12/19/20 Family History Family History Mother Patient's mother is in good health Father Patient's father is Lung disease Sibling Patient's brother is in good health Social History Social History Smoking packs per day: 1 Smoking cigarettes per day: 20.0 Years smoked: 20 Smoking pack-years: 20.00 Smoking status: Current every day smoker Tobacco type: cigarettes Alcohol intake: current Drinks per week: 4 Substance use: never 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 There is no relevant family history pertinent to the presenting complaint Exam Narrative: GENERAL: Well-appearing, well-nourished, and in no acute distress. HEAD: Normocephalic EYES: PERRLA, conjunctivae clear ENT: Nares clear, clear discharge. Mucous membranes moist. TM pearly camp with dull light reflex bilaterally; no tragal tenderness. Oropharynx not erythematous without lesions. Tonsils not enlarged and without exudate, no drooling, no hoarseness, no trismus, uvula midline. NECK: Supple. No lymphadenopathy CHEST: Clear to auscultation, breath sounds equal. No wheezing, rhonchi, rales, or stridor. No respiratory d
[2022-04-29 10:47] VITALS: BP 136/90; PULSE 69; RESP 16; TEMP 36.4; O2SAT 98
== END 2022-04-29 11:40 | disposition home or self-care (01) ==
PROVIDERS: Emergency Provider Nurse Practitioner; PCP Emergency Medicine
DX: J06.9 Acute upper respiratory infection, unspecified (principal); Z20.822 Contact with and (suspected) exposure to COVID-19; F17.210 Nicotine dependence, cigarettes, uncomplicated; J45.909 Unspecified asthma, uncomplicated; I25.10 Atherosclerotic heart disease of native coronary artery without angina pectoris; E78.5 Hyperlipidemia, unspecified; I10 Essential (primary) hypertension; E78.00 Pure hypercholesterolemia, unspecified; I34.1 Nonrheumatic mitral (valve) prolapse; Z95.5 Presence of coronary angioplasty implant and graft
CPT/HCPCS: 87426; 99213; C9803; G0463

== ENCOUNTER 2023-11-16 14:46 | Inpatient (IN) | payer OTHER, SELFPAY ==
[2023-11-16] VITALS (19 sets, daily range): BP systolic 136–174; BP diastolic 88–107; PULSE 73–92; RESP 11–21; TEMP 36.4; O2SAT 94–98; BMI 30.7
--- NOTE | ~2023-11-16 | XR_ITS ---
EXAMINATION: XR chest 2V Exam Date/Time: 11/16/2023 15:09 DAY CARE PROVIDER HISTORY: chest pain, lighthead, sob x 3 days, hx stents Comparison: 11/26/2020. RESULT: Lines, tubes, and devices: Cholecystectomy clips. Lungs and pleura: Clear. Cardiomediastinal silhouette: Stable. Other: No acute osseous or upper abdominal finding. IMPRESSION: No acute cardiopulmonary process. Reviewed, dictated and finalized at location K. CARE PROVIDER
--- NOTE | 2023-11-16 14:47 | ECG_ITS ---
Measurements Intervals [place] Rate: 90 P: 8 RI: 192 QRS: -40 QRSD: 122 T: -17 QT: 352 QTc: 431 Interpretive Statements SINUS RHYTHM LEFT AXIS DEVIATION LEFT ATRIAL ENLARGEMENT INCOMPLETE RIGHT BUNDLE BRANCH BLOCK POOR R WAVE PROGRESSION, ANTERIOR LEADS BORDERLINE ECG COMPARED TO ECG 11/26/2020 10:16:40 LEFT-AXIS DEVIATION NOW PRESENT Electronically Signed On 11-16-2023 15:10:38 SIGNAL AND COMMUNICATIONS MAINTAINER by Kelton Schmidt D.O.
[2023-11-16 15:10] LABS: Basophils Percent Auto 0.5 % (0.2-1.2); Eosinophils Absolute Auto 0.1 K/mm3 (0-0.3); Eosinophils Percent Auto 1.7 % (0-4.4); Hematocrit 44.5 % (42.0-52.0); Hemoglobin 15.8 g/dL (14.0-18.0); Immature Granulocyte Absolute 0.02 K/mm3 (0.00-0.031); Immature Granulocyte Percent A 0.3 % (0-0.5); Lymphocytes Absolute Auto 1.61 K/mm3 (0.9-3.2); Lymphocytes Percent Auto 27.3 % (18.3-44.2); Mean Corpuscular HGB Conc 35.5 g/dl (32-36); Mean Corpuscular Volume 90.1 fl (80-100); Mean Platelet Volume 9.3 fl (7.4-10.4); Monocytes Absolute Auto 0.5 K/mm3 (0.1-0.6); Monocytes Percent Auto 8.1 % (2.6-8.5); Neutrophils Absolute Auto 3.7 K/mm3 (1.3-6.7); Neutrophils Percent Auto 62.1 % (45.5-73.1); Platelet Count Result 185 k/mm3 (150-375); Red Blood Count 4.94 M/mm3 (4.6-6.20); Red Cell Distribution Width 12.4 % (11.5-14.5); White Blood Count 5.9 K/mm3 (4.5-10.0)
[2023-11-16 15:20] LABS: INR 0.9; Prothrombin Time 12.8 Seconds (11.1-14.7)
[2023-11-16 15:21] LABS: Partial Thromboplastin Time 29.2 SECONDS (22.3-36.8)
[2023-11-16 15:23] LABS: Alanine Aminotransferase 62 U/L (6-50); Albumin Level 4.6 g/dL (3.5-5.1); Alkaline Phosphatase 79 U/L (38-126); Anion Gap 5 mmol/L (8-16); Aspartate Amino Transferase 46 U/L (17-59); Bilirubin,Total 0.6 mg/dL (0.2-1.3); Blood Urea Nitrogen 16 mg/dL (9-20); Calcium 9.7 mg/dL (8.4-10.2); Carbon Dioxide 30 mmol/L (22-30); Chloride 103 mmol/L (98-107); Estimated CRCL calculation 86 ml/min; Estimated Glomerular Filt Rate > 60; Glucose 113 mg/dL (65-110); Lipase 131 U/L (23-300); Potassium 4.1 mmol/L (3.4-5.0); Sodium 138 mmol/L (137-145)
[2023-11-16 15:38] LABS: Troponin I 0.804 ng/mL (0.000-0.034)
--- NOTE | 2023-11-16 15:47 | ED.CHESTPAIN ---
HPI - Chest Pain General Chief Complaint: Chest Pain Stated Complaint: chest pain Time Seen by Provider: 11/16/23 15:45 History of Present Illness HPI narrative: Patient is a 53-year-old male with history of CAD status post PCI x2 (first was 20 years ago, second placed 7 years ago) here with chest pain. He states that 3 days ago he began having some midsternal on left-sided chest pain. He notes that he initially thought maybe he was just hung over as he had gone out drinking the night before. He attempted to sleep it off and but woke up the next day feeling continued pain. He thought he was dehydrated and yesterday he went to an infusion clinic and got a IV fluid infusion. 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 He notes pain is diffuse thoughout his chest and sharp in his left side, radiating down his arm. He notes that on exertion he was getting light headed as well. Chest pain is at an 8/10 currently. Related Data Home Medications Medication Instructions Recorded Confirmed alprazolam 0.25 mg tablet (Xanax) 0.25 mg PO Q4-6H 11/26/20 07/21/21 atorvastatin 40 mg tablet (Lipitor) 40 mg PO DAILY 11/26/20 07/21/21 citalopram 20 mg tablet (Celexa) 20 mg PO DAILY 11/26/20 07/21/21 metoprolol succinate 50 mg 50 mg PO BID 11/26/20 07/21/21 tablet,extended release 24 hr (Toprol XL) methylphenidate HCl 10 mg tablet 10 mg DAILY 03/13/21 07/21/21 hydrocodone 5 mg-acetaminophen 325 tablet 04/29/22 mg tablet Allergies Allergy/AdvReac Type Severity Reaction Status Date / Time No Known Allergies Allergy Unknown Verified 11/16/23 16:15 Review of Systems Review of Systems: All systems reviewed & are unremarkable except as noted in HPI and below PMFSH Past Medical History Medical History Asthma Bronchitis CAD (coronary artery disease) Heart attack HLD (hyperlipidemia) HTN (hypertension) Hypercholesterolemia Hypertension Mitral valve prolapse SVT (supraventricular tachycardia) Valvular heart disease Surgical History Surgical History H/O heart artery stent x3 History of tonsillectomy Hx laparoscopic cholecystectomy 12/19/20 Family History Family History Mother Patient's mother is in good health Father Patient's father is Lung disease Sibling Patient's brother is in good health Social History Social History Smoking packs per day: 1 Smoking cigarettes per day: 20.0 Years smoked: 20 Smoking pack-years: 20.00 Smoking status: Current every day smoker Tobacco type: cigarettes Alcohol intake: current Drinks per week: 4 Substance use: never Living arrangements: with family 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 HEAD: Normocephalic, atraumatic. EYES: PERRLA and EOMI. ENT: Nares clear. Mucous membranes moist. NECK: Supple. CHEST: Clear to auscultation. No respiratory distress. HEART: Regular rate and rhythm. Normal peripheral pulses. ABDOMEN: Soft, nontender, nondistended. EXTREMITIES: Normal range of motion. No edema. SKIN: Warm, dry, no rash. NEURO: No focal deficits. Alert and oriented x3. PSYCH: Normal mood and affect. Course Course Emergency Course: Chart review performed. Patient here for chest pain x2-3 days. Notes history of [place] in the past. Triage vitals show HTN, otherwise normal. Triage workup reviewed. CBC within normal limits. Electrolytes normal. Initial troponin elevated at 0.804, prior was normal last in our system
[2023-11-16] MEDS: ASPIRIN 81 MG CHEWABLE TABLET 324 MG PO (16:20)
[2023-11-16] MEDS: MORPHINE SULFATE (*CRX) 4 MG/ML INJ IV PUSH ×3 (17:24→23:31)
[2023-11-16] MEDS: ONDANSETRON INJ 4 MG/2 ML VIAL IV PUSH (17:24)
--- NOTE | 2023-11-16 17:28 | ECG_ITS ---
Measurements Intervals [place] Rate: 80 P: 23 MN: 202 QRS: -40 QRSD: 117 T: 1 QT: 380 QTc: 441 Interpretive Statements SINUS RHYTHM LEFT AXIS DEVIATION BORDERLINE AV CONDUCTION DELAY POSSIBLE LEFT ATRIAL ENLARGEMENT INCOMPLETE RIGHT BUNDLE BRANCH BLOCK DELAYED PRECORDIAL R/S TRANSITION POSSIBLE LEFT VENTRICULAR HYPERTROPHY BORDERLINE T WAVE ABNORMALITY- INFERIOR LEADS BORDERLINE ECG COMPARED TO ECG 11/16/2023 14:50:47 NO SIGNIFICANT CHANGES Electronically Signed On 11-16-2023 19:40:55 COST COORDINATOR by Kelton Schmidt D.O.
[2023-11-16 18:03] LABS: Basophils Percent Auto 0.5 % (0.2-1.2); Eosinophils Absolute Auto 0.1 K/mm3 (0-0.3); Eosinophils Percent Auto 1.8 % (0-4.4); Hematocrit 42.7 % (42.0-52.0); Hemoglobin 15.2 g/dL (14.0-18.0); Immature Granulocyte Absolute 0.02 K/mm3 (0.00-0.031); Immature Granulocyte Percent A 0.3 % (0-0.5); Lymphocytes Percent Auto 27.2 % (18.3-44.2); Mean Corpuscular HGB Conc 35.6 g/dl (32-36); Mean Corpuscular Hemoglobin 31.9 pg (26-34); Mean Corpuscular Volume 89.5 fl (80-100); Mean Platelet Volume 9.1 fl (7.4-10.4); Monocytes Absolute Auto 0.6 K/mm3 (0.1-0.6); Monocytes Percent Auto 8.8 % (2.6-8.5); Neutrophils Absolute Auto 4.1 K/mm3 (1.3-6.7); Neutrophils Percent Auto 61.4 % (45.5-73.1); Platelet Count Result 173 k/mm3 (150-375); Red Blood Count 4.77 M/mm3 (4.6-6.20); Red Cell Distribution Width 12.4 % (11.5-14.5); White Blood Count 6.6 K/mm3 (4.5-10.0)
[2023-11-16 18:21] LABS: INR 0.9; Prothrombin Time 12.4 Seconds (11.1-14.7)
[2023-11-16 18:33] LABS: Troponin I 0.852 ng/mL (0.000-0.034)
[2023-11-16] MEDS: ENOXAPARIN 80 MG/0.8 ML SYRINGE SUB-Q (18:49)
--- NOTE | 2023-11-16 19:16 | PC.NURSE ---
Assumed care of pt. Bedside report from AJITH Head. Pt resting quietly per cart at this time.
[2023-11-16] MEDS: NITROGLYCERIN SL 0.4 MG TABLET SUBLINGUAL (19:21)
--- NOTE | 2023-11-16 19:21 | PC.NURSE ---
Bedside report given to Mary RN, all questions answered
--- NOTE | 2023-11-16 19:21 | PC.NURSE ---
Pt reports pain 4/10 at this time. Nitro given. 167/107
--- NOTE | 2023-11-16 19:29 | PM.IMHP ---
H&P: HPI History of Present Illness Date/Time: 11/16/23 19:29 Chief Complaint: chest pain Narrative: This is a 53-year-old male with past medical history significant for coronary artery disease, status post PTCA, patient presents to the emergency room complaining of chest pain retrosternal with radiation to the precordial area for the last 3 days or so after being out with friends and having drinks, patient try resting at home but did not help he eventually went to infusion clinic and requested an infusion thinking that he was dehydrated but pain persisted, denies any cough, sputum production, fevers rigors or chills, no nausea, vomiting. In emergency room patient's troponin was 0.804, 0.852-0.921 x3 EXAMINATION:? XR chest 2V Exam Date/Time:? 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 Comparison:? 11/26/2020. RESULT: Lines, tubes, and devices:? Cholecystectomy clips. Lungs and pleura:? Clear. Cardiomediastinal silhouette:? Stable. Other:? No acute osseous or upper abdominal finding. ? IMPRESSION: No acute cardiopulmonary process. Rate 76 [place] 199 QRSd 121 QT 379 QTc 428 --[place]-- P 21 QRS -33 T 3 SINUS RHYTHM POSSIBLE LEFT ATRIAL ENLARGEMENT [-0.1mV P WAVE IN V1/V2] MARKED LEFT AXIS DEVIATION [QRS AXIS < -30] POSSIBLE RIGHT VENTRICULAR CONDUCTION DELAY [RSR (QR) IN V1/V2] POSSIBLE LEFT VENTRICULAR HYPERTROPHY [VOLTAGE CRITERIA PLUS LAE OR QRS WIDENING] COMPARED TO ECG 11/16/2023 17:31:32 NO SIGNIFICANT CHANGES Review of Systems Review of Systems: chest pain Constitutional: Constitutional: Denies chills, Denies fatigue, Denies fever(s), Denies night sweats, Denies poor appetite and Denies weakness Eyes: Eyes: Denies change in vision ENT: Denies dysphagia, Denies vertigo, Denies dizziness, Denies nasal discharge, Denies neck pain and Denies odynophagia Cardiovascular: Cardiovascular: Reports chest pain, Reports chest pain at rest, Denies irregular heart rhythm, Denies leg edema, Denies radiating jaw, neck or arm pain and Denies palpitations Respiratory: Respiratory: Denies cough Gastrointestinal: Gastrointestinal: Denies abdominal pain, Denies dyspepsia, Denies heartburn, Denies nausea and Denies vomiting Genitourinary: Genitourinary: Denies dysuria Musculoskeletal: Musculoskeletal: Denies back pain, Denies myalgias, Denies arthralgias and Denies joint swelling Integumentary/Breasts: Skin/Breast: Denies rash Neurologic: Denies focal weakness and Denies Sensory deficit (Neuro) Psychiatric: Psychiatric: Reports no additional psychiatric complaints and Reports as per HPI Endocrine: Endocrine: Denies cold intolerance, Denies flushing, Denies heat intolerance, Denies polyphagia, Denies polydipsia and Denies palpitations Hematologic/Lymphatic: Hematologic/Lymphatic: Reports no additional hematologic/lymphatic complaints and Reports as per HPI Allergic/Immunologic: Allergic/Immunologic: Reports no additional allergic/immunologic complaints and Reports as per HPI PMFSH Past Medical History Medical History Asthma Bronchitis CAD (coronary artery disease) Heart attack HLD (hyperlipidemia) HTN (hypertension) Hypercholesterolemia Hypertension Mitral valve prolapse SVT (supraventricular tachycardia) Valvular heart disease Surgical History Surgical History H/O heart artery stent x3 History of tonsillectomy Hx laparoscopic cholecystectomy 12/19/20 Family History Family History Mother Patient's mother is in good health Father Patient's father is Lung disease Sibling Patient's brother is in good health Social History Social History Smoking packs per day: 1 Smoking cigarettes per day: 20.0 Years smoked: 20 Smoking pack-years: 20.
--- NOTE | 2023-11-16 19:34 | PC.NURSE ---
Pt states pain now 0/10 in chest. Requesting med for bland.
[2023-11-16] MEDS: ACETAMINOPHEN 500 MG TABLET 1000 MG PO (19:57)
--- NOTE | 2023-11-16 21:03 | ECG_ITS ---
Measurements Intervals [place] Rate: 76 P: 21 RI: 199 QRS: -33 QRSD: 121 T: 3 QT: 379 QTc: 428 Interpretive Statements SINUS RHYTHM LEFT AXIS DEVIATION POSSIBLE LEFT ATRIAL ENLARGEMENT RIGHT BUNDLE BRANCH BLOCK POSSIBLE LEFT VENTRICULAR HYPERTROPHY ABNORMAL ECG COMPARED TO ECG 11/16/2023 17:31:32 NO SIGNIFICANT CHANGES Electronically Signed On 11-17-2023 6:29:44 [employer]IDE [employer] by Kelton Schmidt D.O.
[2023-11-16 21:32] LABS: Cholesterol 196 mg/dL (0-200)
--- NOTE | 2023-11-16 21:41 | ADMGEN ---
2114 This patient, Boston Muhammad , was admitted to IMU Room 212-01. Patient/family oriented to hospital policies and general routines including ID bracelet, bed and alarms, visiting hours, pain management, procedures, bathroom and other care routines, personal items, smoking policy, room service/diet, and visiting hours. Information on how to activate the Rapid Response Team has been discussed. Patient/Family are encouraged to report perceived risks to care and to ask questions if they do not understand what they are told or what they should do.
[2023-11-16 21:47] LABS: Troponin I 0.921 ng/mL (0.000-0.034)
[2023-11-16 22:24] LABS: Cholesterol 196 mg/dL (0-200); HDL Direct 43 mg/dL; Triglycerides 351 mg/dL (<150)
[2023-11-16 22:34] LABS: LDL Cholesterol Direct 122 mg/dL
[2023-11-17] VITALS (24 sets, daily range): BP systolic 123–161; BP diastolic 75–109; PULSE 63–84; RESP 15–18; TEMP 36.1–37; O2SAT 93–97
--- NOTE | 2023-11-17 | ECHO_ITS ---
Patient Info Name: Boston Muhammad Age: 53 years : 1970 Gender: Male Ht: 66 in Wt: 190 lbs BSA: 2.03 m2 HR: 78 bpm BP: 123 / 75 mmHg Heart Rhythm: Sinus Rhythm Technical Quality: Fair Exam Date: 11/17/2023 9:38 AM Exam Location: Echo Lab Exam Room: [facility] Patient Status: Inpatient Admit Date: 11/16/2023 Staff Ordering Physician: Salome Barker MD Paramedic: Megan Ramos RDCS Attending Provider: Salome Barker MD Referring Physician: Mj HIDALGO; Exam Type: CA echo doppler color flow Study Info Indications - CHEST PAIN Complete two-dimensional, color flow and Doppler transthoracic echocardiogram is performed. Summary 1. Complete two-dimensional, color flow and Doppler transthoracic echocardiogram is performed. 2. Left ventricular chamber dimension is normal. 3. Left ventricular systolic function is normal, estimated at 60-65%. 4. There is moderately increased left ventricular wall thickness. 5. The left ventricular diastolic function is normal. 6. There is mild mitral valve regurgitation. 7. There is mild tricuspid valve regurgitation. 8. Mild pulmonary hypertension, estimated pulmonary arterial systolic pressure is 37 mmHg. Left Ventricle Left ventricular chamber dimension is normal. Left ventricular systolic function is normal, estimated at 60-65%. There is moderately increased left ventricular wall thickness. The left ventricular diastolic function is normal. Right Ventricle Right ventricular chamber dimension is normal. Right ventricular systolic function is normal. Left Atria Left atrial chamber dimension is normal. Right Atria Right atrial chamber dimension is normal. Atrial Septum Intact interatrial septum visualized by color flow imaging. Aortic Valve The aortic valve is trileaflet. There is mild aortic valve sclerosis. There is no aortic valve stenosis. There is trace aortic valve regurgitation. Pulmonic Valve The pulmonic valve is normal. There is no pulmonic valve stenosis. There is trace pulmonic regurgitation. Mitral Valve The mitral valve has normal leaflets. There is no mitral valve stenosis. There is mild mitral valve regurgitation. Tricuspid Valve The tricuspid valve leaflets are normal. There is no significant tricuspid valve stenosis. There is mild tricuspid valve regurgitation. Mild pulmonary hypertension, estimated pulmonary arterial systolic pressure is 37 mmHg. Pericardium/Pleural The pericardium appears normal. There is no pericardial effusion. Inferior Vena Cava Normal inferior vena cava with >50% collapse upon inspiration consistent with normal right atrial pressure, 10 mmHg. Aorta The aortic root size at the sinus of Valsalva is normal. Left Ventricular Outflow Tract Name Value Normal LVOT 2D LVOT Diameter 2.0 cm LVOT Doppler LVOT Peak Gradient 4 mmHg LVOT Mean Gradient 2 mmHg LVOT VTI 21 cm LVOT VTI/AV VTI Ratio 0.9 LVOT Stroke Volume 66 ml LVOT CO 14.3 l/min LVOT CI 7.1 l/min/m2
[2023-11-17] MEDS: MORPHINE SULFATE (*CRX) 4 MG/ML INJ IV PUSH (01:56)
[2023-11-17 04:50] LABS: Basophils Percent Auto 0.6 % (0.2-1.2); Eosinophils Absolute Auto 0.1 K/mm3 (0-0.3); Eosinophils Percent Auto 2.7 % (0-4.4); Hematocrit 43.6 % (42.0-52.0); Hemoglobin 15.1 g/dL (14.0-18.0); Immature Granulocyte Absolute 0.01 K/mm3 (0.00-0.031); Immature Granulocyte Percent A 0.2 % (0-0.5); Lymphocytes Absolute Auto 1.99 K/mm3 (0.9-3.2); Lymphocytes Percent Auto 38.3 % (18.3-44.2); Mean Corpuscular HGB Conc 34.6 g/dl (32-36); Mean Corpuscular Hemoglobin 31.7 pg (26-34); Mean Corpuscular Volume 91.4 fl (80-100); Mean Platelet Volume 9.2 fl (7.4-10.4); Monocytes Absolute Auto 0.5 K/mm3 (0.1-0.6); Monocytes Percent Auto 9.6 % (2.6-8.5); Neutrophils Absolute Auto 2.5 K/mm3 (1.3-6.7); Neutrophils Percent Auto 48.6 % (45.5-73.1); Platelet Count Result 171 k/mm3 (150-375); Red Blood Count 4.77 M/mm3 (4.6-6.20); Red Cell Distribution Width 12.3 % (11.5-14.5); White Blood Count 5.2 K/mm3 (4.5-10.0)
[2023-11-17] MEDS: NITROGLYCERIN OINTMENT 1 INCH DOSE TRANSDERM ×4 (05:56→17:35)
--- NOTE | 2023-11-17 09:28 | ECG_ITS ---
Measurements Intervals [place] Rate: 71 P: 39 NC: 186 QRS: -16 QRSD: 118 T: 7 QT: 393 QTc: 429 Interpretive Statements SINUS RHYTHM INCOMPLETE RIGHT BUNDLE BRANCH BLOCK DELAYED PRECORDIAL R/S TRANSITION BORDERLINE ECG COMPARED TO ECG 11/16/2023 21:07:19 INCOMPLETE RIGHT BUNDLE-BRANCH BLOCK NOW PRESENT Electronically Signed On 11-17-2023 9:43:41 PUBLIC WELFARE DIRECTOR by Kelton Schmidt D.O.
--- NOTE | 2023-11-17 09:44 | PM.CNCAR ---
Assessment and Plan Assessment and plan (1) Acute non-ST elevation myocardial infarction (NSTEMI): Code(s): I21.4 - Non-ST elevation (NSTEMI) myocardial infarction Status: Acute Assessment and Plan: Given NSTEMI, recommended cardiac catheterization. Discussed procedure details, indication for procedure, risks vs benefits, alternative management options, etc. with the patient and patient is agreeable to proceed. Continue ASA 81mg once daily. High-intensity statin. Continue beta joshua. Patient to remain NPO for cath. Echocardiogram is pending. Further recommendations and plan pending results of cardiac catheterization. (2) CAD (coronary artery disease): Code(s): I25.10 - Atherosclerotic heart disease of [place] coronary artery without angina pectoris Status: Acute Assessment and Plan: History of 2 prior stents per the patient, first stent about 20 years ago, last stent 7 years ago. ASA, statin, beta joshua. (3) Hypertension: Code(s): I10 - Essential (primary) hypertension Status: Acute Assessment and Plan: Stable. Continue Metoprolol. (4) Hypercholesterolemia: Code(s): E78.00 - Pure hypercholesterolemia, unspecified Status: Acute Assessment and Plan: High intensity statin. History of Present Illness History of Present Illness Consult date/time: 11/17/23 09:44 Requesting physician: Dania Goetz MD Consult reason: Other (NSTEMI) Reason For Visit: Chest Pain, NSEMI Narrative: We are consulted for NSTEMI. This is a 53 year old male with known coronary artery disease s/p prior stents (first stent about 20 years ago, last stent about 7 years ago), hypertension, hyperlipidemia who presented with chest pain. Patient reports he has been having chest pain for about the past 3 days. Feels a diffuse chest tightness with sharp pains in his left side of the chest with radiation to his jaw and left arm. Worsened with exertion. Patient thought it may have been from dehydration from drinking too much alcohol and he went to an infusion clinic to get IV fluids, however, did not feel better with that. Patient denies tobacco use. He reports on average he is drinking a 12 case of beer a week. Troponins are 0.804, 0.852, 0.921. EKGs with sinus rhyhm, incomplete right bundle branch block. Patient's primary cardiology team is [facility]. Review of Systems Review of Systems: All systems reviewed & are unremarkable except as noted in HPI and below (HPI) [facility] Past Medical History Medical History Asthma Bronchitis CAD (coronary artery disease) Heart attack HLD (hyperlipidemia) HTN (hypertension) Hypercholesterolemia Hypertension Mitral valve prolapse SVT (supraventricular tachycardia) Valvular heart disease Surgical History Surgical History H/O heart artery stent x3 History of tonsillectomy Hx laparoscopic cholecystectomy 12/19/20 Family History Family History Mother Patient's mother is in good health Father Patient's father is Lung disease Sibling Patient's brother is in good health Social History Social History Smoking packs per day: 1 Smoking cigarettes per day: 20.0 Years smoked: 20 Smoking pack-years: 20.00 Smoking status: Former smoker Tobacco type: cigarettes Alcohol intake: current Drinks per week: 4 Substance use: never Do You Feel Safe in your Home?: Yes Lack of Transportation: No Lack of Food: Never True Current Housing: I Do Not Have Housing Concerned About Future Housing: No Difficulty Paying Gas/Electric Bills: No Difficulty Paying for Meds: No Currently Unemployed: No Education: Decline to Answer Difficulty w/ Childcare or Family Care: No Living arrangements:
[2023-11-17 10:17] LABS: Troponin I 0.875 ng/mL (0.000-0.034)
[2023-11-17] MEDS: ROSUVASTATIN 20 MG TABLET 40 MG PO (10:17)
[2023-11-17] MEDS: CITALOPRAM HYDROBROMIDE 20 MG TABLET PO (10:18)
[2023-11-17] MEDS: HYDROcodone/acetaminophen (*CRX) 5-325 MG TABLET 1 TAB PO ×2 (10:18→20:46)
[2023-11-17] MEDS: METOPROLOL TARTRATE 50 MG TAB PO ×2 (10:19→20:46)
[2023-11-17] MEDS: ASPIRIN 81 MG ENTERIC TABLET PO (10:21)
--- NOTE | 2023-11-17 15:08 | WPDMODSED ---
Moderate Sedation Note-Pt Data Patient Data Diagnosis: NSTEMI Present Complaint: NSTEMI Procedure to be performed/Plan: Coronary angiography, left heart cath, +/- PCI Allergies Allergy/AdvReac Type Severity Reaction Status Date / Time No Known Allergies Allergy Unknown Verified 11/16/23 16:15 Home Medications Medication Instructions Recorded Confirmed Type alprazolam 0.25 mg tablet (Xanax) 0.5 mg PO Q4-6H 11/26/20 11/16/23 History citalopram 20 mg tablet (Celexa) 20 mg PO DAILY 11/26/20 11/16/23 History metoprolol succinate 50 mg 50 mg PO BID 11/26/20 11/16/23 History tablet,extended release 24 hr (Toprol XL) albuterol sulfate 90 mcg/actuation 2 puff inhalation QID PRN 07/21/21 11/16/23 Rx aerosol inhaler shortness of breath or wheezing #6.7 grams hydrocodone 5 mg-acetaminophen 325 1 tablet PO Q4-6H pain >3 04/29/22 11/16/23 History mg tablet Current Medications: Active Medications Hydrocodone Bitart/Acetaminophen (Hydrocodone/Acetaminophen (*Crx) 5-325 Mg Tablet) 1 tab PO Q4-6H PRN PRN Reason: Pain Rated 4-6 Last Admin: 11/17/23 10:18 Dose: 1 tab Albuterol (Albuterol Sulfate (*Sp) Aerosol 1 Puff) 2 puff INHALATION QID PRN PRN Reason: shortness of breath or wheezing Alprazolam (Alprazolam (*Crx) 0.5 Mg Tablet) 0.5 mg PO Q4-6H PRN PRN Reason: Anxiety Aspirin (Aspirin 81 Mg Enteric Tablet) 81 mg PO QAM [facility] Last Admin: 11/17/23 10:21 Dose: 81 mg Citalopram Hydrobromide (Citalopram Hydrobromide 20 Mg Tablet) 20 mg PO DAILY [facility] Last Admin: 11/17/23 10:18 Dose: 20 mg Clopidogrel Bisulfate (Clopidogrel Bisulfate 75 Mg Tablet) 75 mg PO QAM [facility] Enoxaparin Sodium (Enoxaparin 100 Mg/Ml Syringe) 85 mg SUB-Q Q12HR [facility] Metoprolol Tartrate (Metoprolol Tartrate 50 Mg Tab) 50 mg PO Q12HR [facility] Last Admin: 11/17/23 10:19 Dose: 50 mg Nitroglycerin (Nitroglycerin Ointment 1 Inch Dose) 1 inch TRANSDERM Q6HR [facility] Last Admin: 11/17/23 05:56 Dose: 1 inch Perflutren Lipid Microsphere (Perflutren Lipid Microspheres 1.5 Ml Vial Diluted To 10 Ml Total Volume) 0 ml IV PUSH ONCE PRN; Protocol PRN Reason: adequate visualization Stop: 11/20/23 01:37 Rosuvastatin Calcium (Rosuvastatin 20 Mg Tablet) 40 mg PO QAM [facility] Last Admin: 11/17/23 10:17 Dose: 40 mg Sedation/Anesthesia: No previous sedation/anesthesia problems (including family history). [facility] Past Medical History Medical History Asthma Bronchitis CAD (coronary artery disease) Heart attack HLD (hyperlipidemia) HTN (hypertension) Hypercholesterolemia Hypertension Mitral valve prolapse SVT (supraventricular tachycardia) Valvular heart disease Surgical History Surgical History H/O heart artery stent x3 History of tonsillectomy Hx laparoscopic cholecystectomy 12/19/20 Family History Family History Mother Patient's mother is in good health Father Patient's father is Lung disease Sibling Patient's brother is in good health Social History Social History Smoking packs per day: 1 Smoking cigarettes per day: 20.0 Years smoked: 20 Smoking pack-years: 20.00 Smoking status: Former smoker Tobacco type: cigarettes Alcohol intake: current Drinks per week: 4 Substance use: never Do You Feel Safe in your Home?: Yes Lack of Transportation: No Lack of Food: Never True Current Housing: I Do Not Have Housing Concerned About Future Housing: No Difficulty Paying Gas/Electric Bills: No Difficulty Paying for Meds: No Currently Unemployed: No Education: Decline to Answer Difficulty w/ Childcare or Family Care: No Living arrangements: with family Occupation/Education: occupation 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
--- NOTE | 2023-11-17 15:10 | WPDCARDPROC ---
Cardiac Cath Procedure Note Date of procedure:: 11/17/23 Performing physician:: CATHETERIZATION LABORATORY REPORT Procedure Date: 11/17/2023 Stem Lead Former: Daniel Wyatt M.D., [facility]? Referring Physician: Daniel Wyatt M.D. Anesthesia: Versed and Fentanyl were ordered and given in my presence at 14:31, procedure ended at 15:01. Supervision of nurse monitored moderate sedation with Versed and Fentanyl was provided for 30 minutes. Total of Versed 1mg and Fentanyl 50mcg were administered by the Pathologist RN Thais Mckeon. Pre-op Diagnosis: NSTEMI Post-op Diagnosis: 1. Complete occlusion of the proximal RCA with well-developed [id number] collaterals to the distal RCA branches. Unclear on the chronicity of the occlusion, however, patient had severe chest pain that occurred 3 days ago and lasted for about 2 days, so given the timeline of his symptoms, it may have occluded off then, however, he does already have well-developed collaterals now. Given patient is currently chest pain free, troponins have already downtrended, and well-developed collaterals now, I elected not to intervene. Will proceed with medical management. 2. Left ventricular end-diastolic pressure of 19mmHg Procedure(s): 1. Moderate sedation 2. Ultrasound-guided access of the right common femoral artery 3. Coronary angiography 4. Left heart cath 5. Angioseal closure of the right common femoral artery Access Site: Right common femoral artery Brief History and Clinical Indications: This is a 53 year old male with known coronary artery disease s/p prior stents (first stent about 20 years ago, last stent about 7 years ago), hypertension, hyperlipidemia who presented with chest pain. Patient reports he has been having chest pain for about the past 3 days. Feels a diffuse chest tightness with sharp pains in his left side of the chest with radiation to his jaw and left arm. Worsened with exertion. Patient thought it may have been from dehydration from drinking too much alcohol and he went to an infusion clinic to get IV fluids, however, did not feel better with that. Patient denies tobacco use. He reports on average he is drinking a 12 case of beer a week. Troponins are 0.804, 0.852, 0.921. EKGs with sinus rhythm, incomplete right bundle branch block, possible old inferior infarction. Therefore, patient referred for [facility] for NSTEMI. All risks, benefits and alternatives to left heart catheterization with or without percutaneous coronary intervention was discussed at length with the patient. Risk of complications including but not limited to bleeding, infection, arrhythmia, stroke, worsening kidney function, blood loss, groin hematoma, limb loss, emergency coronary artery bypass grafting, and even were discussed with the patient and all questions were answered. The patient understood and wished to proceed. Time out called, patient name, date of , medical record number, allergies, procedure performed, identify Stem Lead Former, patient and staff member concurred with accurate data, procedure carried on. Findings: LEFT HEART CATHETERIZATION FINDINGS: 1. Left main: The left main coronary artery is widely patent without any significant obstructive disease. 2. Left anterior descending: The LAD has luminal irregularities without any significant obstructive angiographic disease. The first diagonal branch is a small caliber vessel with moderate ostial stenosis with mild diffuse disease throughout. No significant angiographic obstructive disease. 3. Ramus: There is a large caliber Ramus branch. The Ramus has mild disease in its proximal-mid portion. No significant angiographic obstructive disease. 4. Left circumflex: The left circumflex artery is a small caliber artery and is diminutive. 5. Right coronary artery: The RCA is the dominant vessel. Prior stents seen in the proximal portion. Remainder of the vessel appears to be heavily calcified. The RCA is completely o
--- NOTE | 2023-11-17 16:21 | P.PNIM_ITS ---
Progress Note: A&P Assessment and Plan (1) Acute non-ST elevation myocardial infarction (NSTEMI): Code(s): I21.4 - Non-ST elevation (NSTEMI) myocardial infarction Status: Acute (2) CAD (coronary artery disease): Code(s): I25.10 - Atherosclerotic heart disease of [place] coronary artery without angina pectoris Status: Acute (3) Chest pain: Qualifiers: Chest pain type: unspecified Qualified Code(s): R07.9 - Chest pain, unspecified Code(s): R07.9 - Chest pain, unspecified Status: Acute (4) Hypertension: Code(s): I10 - Essential (primary) hypertension Status: Acute Plan NSTEMI/Chest Pain * HX PCI * serial troponins x3 q.6 hours peaked at 0.921 downward trend * EKG SR with incomplete BB * cardiology consulted * CCL showed complete occlusion of RCA with well-developed collaterals * Start on ASA, Plavix, BB, and statin * continuous cardiac monitoring * cardiac risk factors: * lifestyle modifications/heart healthy diet HTN * Stable * BB started * monitor per unit protocol HLD * Lipid panel * Crestor 40mg started Code status: Full code per patient DVT prophylaxis: Lovenox Stress ulcer prophylaxis: Protonix 40 daily PT/OT notes: Ambulatory Disposition: Patient continues admission post cardiac catheterization continue with aggressive medical management due to occlusion of RCA. Plan will be for discharge tomorrow if no events overnight patient is ambulatory on her own/ Time Spent With Patient Time with patient: 25 - 35 minutes Subjective Date/time seen: 11/17/23 16:21 Interval history: Patient is a 53-year old male admitted with complaints of chest pain 11/16: Patient seen bedside with at side reported improvement to CP with nitro patch. Troponin peaked at 0.921.EKG with SR and incomplete BBB. Patient was seen by cardiology and taken to CCL for possible intervention. Patient reported previous HX of CAD with PCI. Per CCL report patient had full occlusion of RCA time unknown but with well-developed collaterals and no intervention. Per Cardiology plan will be for medical management will start on ASA, plavix, BB, and statin. Review of Systems Review of Systems: All systems reviewed & are unremarkable except as noted in HPI and below Exam Narrative: Physical Exam: * GENERAL: Alert and oriented x 3. No acute distress. Well-nourished. * EYES: EOMI. No scleral icterus. PERRLA. * HEENT: Moist mucous membranes. No cervical lymphadenopathy. * LUNGS: Clear to auscultation bilaterally. No accessory muscle use. * CARDIOVASCULAR: Regular rate and rhythm. No murmur. No JVD. S1-S2 * ABDOMEN: Soft, mild tenderness and non-distended. No palpable masses. * EXTREMITIES: No edema. Non-tender * SKIN: No rashes or lesions. Skin warm, dry. * NEUROLOGIC: No focal neurological deficits. CN II-XII grossly intact * PSYCHIATRIC: Appropriate mood and affect. Good judgement and insight. No visual or auditory hallucinations. No suicidal or homicidal ideation. Objective Data Vital Signs Vital Signs: Vital Signs - 24 hr 11/16/23 18:50 11/16/23 16:30 11/16/23 16:45 Temperature Pulse Rate 81 77 73 Respiratory Rate 18 15 16 Blood Pressure 171/101 H 146/88 H 144/88 H Pulse Oximetry 97 95 94 Oxygen Delivery Oxygen Flow Rate
--- NOTE | 2023-11-17 16:21 | PM.IMPN ---
Progress Note: A&P Assessment and Plan (1) Acute non-ST elevation myocardial infarction (NSTEMI): Code(s): I21.4 - Non-ST elevation (NSTEMI) myocardial infarction Status: Acute (2) CAD (coronary artery disease): Code(s): I25.10 - Atherosclerotic heart disease of [place] coronary artery without angina pectoris Status: Acute (3) Chest pain: Qualifiers: Chest pain type: unspecified Qualified Code(s): R07.9 - Chest pain, unspecified Code(s): R07.9 - Chest pain, unspecified Status: Acute (4) Hypertension: Code(s): I10 - Essential (primary) hypertension Status: Acute Plan NSTEMI/Chest Pain HX PCI serial troponins x3 q.6 hours peaked at 0.921 downward trend EKG SR with incomplete BB cardiology consulted CCL showed complete occlusion of RCA with well-developed collaterals Start on ASA, Plavix, BB, and statin continuous cardiac monitoring cardiac risk factors: lifestyle modifications/heart healthy diet HTN Stable BB started monitor per unit protocol HLD Lipid panel Crestor 40mg started Code status: Full code per patient DVT prophylaxis: Lovenox Stress ulcer prophylaxis: Protonix 40 daily PT/OT notes: Ambulatory Disposition: Patient continues admission post cardiac catheterization continue with aggressive medical management due to occlusion of RCA. Plan will be for discharge tomorrow if no events overnight patient is ambulatory on her own/ Time Spent With Patient Time with patient: 25 - 35 minutes Subjective Date/time seen: 11/17/23 16:21 Interval history: Patient is a 53-year old male admitted with complaints of chest pain 11/16: Patient seen bedside with at side reported improvement to CP with nitro patch. Troponin peaked at 0.921.EKG with SR and incomplete BBB. Patient was seen by cardiology and taken to CCL for possible intervention. Patient reported previous HX of CAD with PCI. Per CCL report patient had full occlusion of RCA time unknown but with well-developed collaterals and no intervention. Per Cardiology plan will be for medical management will start on ASA, plavix, BB, and statin. Review of Systems Review of Systems: All systems reviewed & are unremarkable except as noted in HPI and below Exam Narrative: Physical Exam: GENERAL: Alert and oriented x 3. No acute distress. Well-nourished. EYES: EOMI. No scleral icterus. PERRLA. HEENT: Moist mucous membranes. No cervical lymphadenopathy. LUNGS: Clear to auscultation bilaterally. No accessory muscle use. CARDIOVASCULAR: Regular rate and rhythm. No murmur. No JVD. S1-S2 ABDOMEN: Soft, mild tenderness and non-distended. No palpable masses. EXTREMITIES: No edema. Non-tender SKIN: No rashes or lesions. Skin warm, dry. NEUROLOGIC: No focal neurological deficits. CN II-XII grossly intact PSYCHIATRIC: Appropriate mood and affect. Good judgement and insight. No visual or auditory hallucinations. No suicidal or homicidal ideation. Objective Data Vital Signs Vital Signs: Vital Signs - 24 hr 11/16/23 18:50 11/16/23 16:30 11/16/23 16:45 Temperature Pulse Rate 81 77 73 Respiratory Rate 18 15 16 Blood Pressure 171/101 H 146/88 H 144/88 H Pulse Oximetry 97 95 94 Oxygen Delivery Oxygen Flow Rate Fraction of Inspired Oxygen 11/16/23 17:00 11/16/23 17:15 11/16/23 18:46 Temperature Pulse Rate 74 81 75 Respiratory Rate 18 21 H 19 Blood Pressure 144/93 H 136/98 H 171/101 H Pulse Oximetry 96 96 96 Oxygen Delivery Oxygen Flow Rate Fraction of Inspired Oxygen 11/16/23 19:01 11/16/23 19:16 11/16/23 19:31 Temperature Pulse Rate 78 82 81 Respiratory Rate 11 L 17 15 Blood Pressure 168/101 H 167/107 H 138/89 Pulse Oximetry 97 96 95 Oxygen Delivery Oxygen Flow Rate Fraction of Inspired Oxygen 11/16/23 21:15 11/16/23 22:00 11/16/23 23:29 Temperature 97.5 F L 97.6 F Pulse Rate 75 76
[2023-11-17] MEDS: polyethylene glycoL 3350 17 GM POWD.PACK PO (17:35)
[2023-11-18] VITALS (8 sets, daily range): BP systolic 136–146; BP diastolic 82–89; PULSE 62–68; RESP 18; TEMP 36.7–37.1; O2SAT 95–98
[2023-11-18] MEDS: NITROGLYCERIN OINTMENT 1 INCH DOSE TRANSDERM (00:28)
[2023-11-18] MEDS: ASPIRIN 81 MG ENTERIC TABLET PO (08:36)
[2023-11-18] MEDS: METOPROLOL TARTRATE 50 MG TAB PO (08:36)
[2023-11-18] MEDS: CLOPIDOGREL BISULFATE 75 MG TABLET PO (08:36)
[2023-11-18] MEDS: ROSUVASTATIN 20 MG TABLET 40 MG PO (08:36)
[2023-11-18] MEDS: CITALOPRAM HYDROBROMIDE 20 MG TABLET PO (08:36)
[2023-11-18] MEDS: amLODIPine BESYLATE 5 MG TABLET PO (09:45)
--- NOTE | 2023-11-18 09:45 | PM.PNCARD ---
Progress Note: A&P Assessment and Plan (1) Acute non-ST elevation myocardial infarction (NSTEMI): Code(s): I21.4 - Non-ST elevation (NSTEMI) myocardial infarction Status: Acute Assessment and Plan: Echocardiogram showed normal LVEF at 60-65%, moderately increased LV wall thickness, normal diastolic dysfunction, mild MR, mild TR. Cardiac catheterization showed: 1. Complete occlusion of the proximal RCA with well-developed [id number] collaterals to the distal RCA branches. Unclear on the chronicity of the occlusion, however, patient had severe chest pain that occurred 3 days ago and lasted for about 2 days, so given the timeline of his symptoms, it may have occluded off then, however, he does already have well-developed collaterals now. Given patient is currently chest pain free, troponins have already downtrended, and well-developed collaterals now, I elected not to intervene. Will proceed with medical management. 2. Left ventricular end-diastolic pressure of 19mmHg Continue ASA. Started on Plavix 75mg once daily. Continue Metoprolol. Continue high-intensity statin. (2) CAD (coronary artery disease): Code(s): I25.10 - Atherosclerotic heart disease of [place] coronary artery without angina pectoris Status: Acute Assessment and Plan: As above (3) Hypertension: Code(s): I10 - Essential (primary) hypertension Status: Acute Assessment and Plan: Blood pressures are elevated. Continue Metoprolol. Will start Amlodipine 5mg once daily. (4) Hypercholesterolemia: Code(s): E78.00 - Pure hypercholesterolemia, unspecified Status: Acute Assessment and Plan: High intensity statin. Plan Okay for discharge home from our standpoint. Will arrange follow up in our office. Subjective Date/time seen: 11/18/23 09:45 Interval history: Reason for visit: NSTEMI HPI: We are consulted for NSTEMI. This is a 53 year old male with known coronary artery disease s/p prior stents (first stent about 20 years ago, last stent about 7 years ago), hypertension, hyperlipidemia who presented with chest pain. Patient reports he has been having chest pain for about the past 3 days. Feels a diffuse chest tightness with sharp pains in his left side of the chest with radiation to his jaw and left arm. Worsened with exertion. Patient thought it may have been from dehydration from drinking too much alcohol and he went to an infusion clinic to get IV fluids, however, did not feel better with that. Patient denies tobacco use. He reports on average he is drinking a 12 case of beer a week. Troponins are 0.804, 0.852, 0.921. EKGs with sinus rhyhm, incomplete right bundle branch block. Patient's primary cardiology team is [facility]. Date of service 11/17: Feeling well this morning. Review of Systems Review of Systems: All systems reviewed & are unremarkable except as noted in HPI and below (HPI) Exam Const: General: comfortable and no acute distress HENMT: Mouth: Yes moist mucous membranes Eyes: General: appearance normal, both eyes and all related structures Sclera: sclerae normal Neck: Neck: supple Resp: Effort & Inspection: normal respiratory effort Cardio: Rate: regular rate Rhythm: regular rhythm Skin: General skin exam: normal color Neuro: Speech: normal speech Psych: Mental Status: mental status grossly normal Affect: normal affect Objective Data Vital Signs Vital Signs: Vital Signs - 24 hr 11/17/23 10:19 11/17/23 11:44 11/17/23 12:00 Temperature 36.9 C Pulse Rate 78 72 78 Respiratory Rate 18 Blood Pressure 143/92 H Pulse Oximetry 96 Oxygen Delivery 11/17/23 12:00 11/17/23 15:15 11/17/23 15:30 Temperature 36.8 C Pulse Rate 69 73 Respiratory Rate 15 16 Blood Pressure 158/109 H 139/86 Pulse Oximetry 96 96 Oxygen Delivery Room Air Room Air Room Air 11/17/23 16:00 11/17/23 15:45 11/17/23 16:40 Temperature 36.4
--- NOTE | 2023-11-18 11:37 | PM.DS ---
DS: Admitting Diagnosis Discharge Date 11/18/2023 Admitting Diagnosis NSTEMI DS: Discharge Diagnosis Discharge Diagnosis (1) Acute non-ST elevation myocardial infarction (NSTEMI): Code(s): I21.4 - Non-ST elevation (NSTEMI) myocardial infarction Status: Acute (2) Chest pain: Qualifiers: Chest pain type: unspecified Qualified Code(s): R07.9 - Chest pain, unspecified Code(s): R07.9 - Chest pain, unspecified Status: Acute (3) CAD (coronary artery disease): Qualifiers: Coronary Disease-Associated Artery/Lesion type: due to calcified coronary lesion Qualified Code(s): I25.10 - Atherosclerotic heart disease of [place] coronary artery without angina pectoris; I25.84 - Coronary atherosclerosis due to calcified coronary lesion Code(s): I25.10 - Atherosclerotic heart disease of [place] coronary artery without angina pectoris Status: Acute (4) Hypertension: Qualifiers: Hypertension type: primary hypertension Qualified Code(s): I10 - Essential (primary) hypertension Code(s): I10 - Essential (primary) hypertension Status: Acute Plan NSTEMI/Chest Pain HX PCI serial troponins x3 q.6 hours peaked at 0.921 downward trend EKG SR with incomplete BB cardiology consulted CCL showed complete occlusion of RCA with well-developed collaterals Start on ASA, Plavix, BB, and statin continuous cardiac monitoring cardiac risk factors: lifestyle modifications/heart healthy diet HTN Stable BB started monitor per unit protocol HLD Lipid panel Crestor 40mg started Code status: Full code per patient DVT prophylaxis: Lovenox Stress ulcer prophylaxis: Protonix 40 daily PT/OT notes: Ambulatory Disposition: Patient continues admission post cardiac catheterization continue with aggressive medical management due to occlusion of RCA. Plan will be for discharge tomorrow if no events overnight patient is ambulatory on her own/ DS: Summary Hospital Course Reason for hospitalization: NSTEMI Hospital Course: (Medical Record) Chief Complaint: chest pain Narrative: ?this is a 53-year-old male with past medical history significant for coronary artery disease, status post PTCA, patient presents to the emergency room complaining of chest pain retrosternal with radiation to the precordial area for the last 3 days or so after being out with friends and having drinks, patient try resting at home but did not help he eventually went to infusion clinic and requested an infusion thinking that he was dehydrated but pain persisted, denies any cough, sputum production, fevers rigors or chills, no nausea, vomiting.? In emergency room patient's troponin was 0.804,? 0.852-0.921 x3 11/16: Patient seen bedside with at side reported improvement to CP with nitro patch. Troponin peaked at 0.921.EKG with SR and incomplete BBB. Patient was seen by cardiology and taken to CCL for possible intervention. Patient reported previous HX of CAD with PCI. Per CCL report patient had full occlusion of RCA time unknown but with well-developed collaterals and no intervention. Per Cardiology plan will be for medical management will start on ASA, plavix, BB, and statin. 11/17: DISCHARGED Patient denied any further chest pain and cath site clean dry no bleeding or hematoma. Echocardiogram showed normal LVEF at 60-65%, moderately increased LV wall thickness, normal diastolic dysfunction, mild MR, mild TR. Resumed patient ASA and BB was started on a statin and plavix. Reviewed post-cath risks with patient and when to seek medical attention. Patient to follow-up with cardiology in 2 weeks. Patient was ambulatory and discharged home with . Status at Discharge Functional status at discharge: independent ambulation Overall status at discharge: patient is back to baseline Time Spent with Patient Time attestation: Total time spent providing and/or coordinatin
== END 2023-11-18 12:24 | disposition home or self-care (01) | DRG 190 ==
LOC: ANHED 19:12 → ANHIMU 20:42
PROVIDERS: Emergency Medicine; Internal Medicine; Admitting Provider Internal Medicine; Emergency Provider Student in an Organized Health Care Education/Training Program; PCP Emergency Medicine; Visit Provider Nurse Practitioner Family
PROC: 4A023N7 Measurement of Cardiac Sampling and Pressure, Left Heart, Percutaneous Approach (ICD-10-PCS; CPT 93452; principal; 2023-11-17 13:00)
PROC: 4A023N7 Measurement of Cardiac Sampling and Pressure, Left Heart, Percutaneous Approach (ICD-10-PCS; 2023-11-17 13:00)
DX: I21.4 Non-ST elevation (NSTEMI) myocardial infarction (principal); I25.10 Atherosclerotic heart disease of native coronary artery without angina pectoris; E78.5 Hyperlipidemia, unspecified; I25.2 Old myocardial infarction; I10 Essential (primary) hypertension; J45.909 Unspecified asthma, uncomplicated; Z95.5 Presence of coronary angioplasty implant and graft; Z90.49 Acquired absence of other specified parts of digestive tract; Z87.891 Personal history of nicotine dependence; Z79.82 Long term (current) use of aspirin; Z79.02 Long term (current) use of antithrombotics/antiplatelets
CPT/HCPCS: 36415; 71046; 80053; 80061; 82465; 83690; 84484; 85025; 85610; 85730; 93005; 93306; 93458; 96372; 96374; 96375; 96376; 99285; A9270; C1760; C1887; C1894; G0269; J1644; J1650; J2250; J2270; J2405; J3010; J7040

== ENCOUNTER 2023-12-30 09:43 | Outpatient (CLI) | payer MEDICAID, SELFPAY ==
[2023-12-30 10:16] LABS: Basophils Percent Auto 0.4 % (0.2-1.2); Eosinophils Absolute Auto 0.1 K/mm3 (0-0.3); Eosinophils Percent Auto 1.1 % (0-4.4); Hematocrit 46.3 % (42.0-52.0); Immature Granulocyte Absolute 0.03 K/mm3 (0.00-0.031); Immature Granulocyte Percent A 0.4 % (0-0.5); Lymphocytes Absolute Auto 1.59 K/mm3 (0.9-3.2); Mean Corpuscular HGB Conc 34.6 g/dl (32-36); Mean Corpuscular Hemoglobin 31.1 pg (26-34); Mean Corpuscular Volume 90.1 fl (80-100); Monocytes Absolute Auto 0.6 K/mm3 (0.1-0.6); Monocytes Percent Auto 7.8 % (2.6-8.5); Neutrophils Absolute Auto 5.3 K/mm3 (1.3-6.7); Neutrophils Percent Auto 69.3 % (45.5-73.1); Platelet Count Result 216 k/mm3 (150-375); Red Blood Count 5.14 M/mm3 (4.6-6.20); Red Cell Distribution Width 12.4 % (11.5-14.5); White Blood Count 7.6 K/mm3 (4.5-10.0)
[2023-12-30 10:30] LABS: Alanine Aminotransferase 54 U/L (6-50); Albumin Level 4.8 g/dL (3.5-5.1); Alkaline Phosphatase 73 U/L (38-126); Anion Gap 8 mmol/L (4-12); Aspartate Amino Transferase 34 U/L (17-59); Bilirubin,Total 0.8 mg/dL (0.2-1.3); Blood Urea Nitrogen 17 mg/dL (9-20); Calcium 9.7 mg/dL (8.4-10.2); Carbon Dioxide 28 mmol/L (22-30); Chloride 105 mmol/L (98-107); Cholesterol 172 mg/dL (0-200); Estimated Glomerular Filt Rate > 60; Glucose 114 mg/dL (65-110); HDL Direct 42 mg/dL; Phosphorus 3.5 mg/dL (2.5-4.5); Potassium 4.7 mmol/L (3.4-5.0); Sodium 141 mmol/L (137-145); Triglycerides 239 mg/dL (<150)
[2023-12-30 10:43] LABS: LDL Cholesterol Direct 100 mg/dL
[2023-12-30 11:12] LABS: Thyroid Stimulating Hormone Reflex 0.403 uIU/mL (0.465-4.68)
[2023-12-30 11:47] LABS: Free T4 Free Thyroxine Reflex 0.69 ng/dL (0.78-2.19)
[2024-01-03 13:28] LABS: PSA, Free 0.3 ng/mL; PSA, Total 1.2 ng/mL (< OR = 4.0); Percent Free Prostate Spec Ag 25 % (calc) (>25)
[2024-01-04 15:43] LABS: Testosterone Free 21.9 pg/mL (35.0-155.0); Testosterone Total 127 ng/dL (250-1100)
== END 2023-12-30 09:44 | disposition home or self-care (01) ==
PROVIDERS: PCP Emergency Medicine; Visit Provider Emergency Medicine
DX: Z00.00 Encounter for general adult medical examination without abnormal findings (principal); Z79.899 Other long term (current) drug therapy; R53.83 Other fatigue; N40.0 Benign prostatic hyperplasia without lower urinary tract symptoms; I10 Essential (primary) hypertension; G89.4 Chronic pain syndrome; G47.30 Sleep apnea, unspecified; F41.1 Generalized anxiety disorder; E78.2 Mixed hyperlipidemia
CPT/HCPCS: 36415; 80061; 80069; 80076; 84153; 84154; 84402; 84403; 84439; 84443; 85025

== ENCOUNTER 2024-06-19 18:03 | Emergency (ER) | payer OTHER, SELFPAY ==
--- NOTE | ~2024-06-19 | XR_ITS ---
XR chest 2V Ordering provider: [place] APRN History: 53 years Male with . cough, shortness of breath, chest heaviness, hx of [place] . Comparison: November 16, 2023 FINDINGS: MEDIASTINUM: The cardiac silhouette is not enlarged. LUNGS: No infiltrates, effusions or pneumothorax. OTHER: No free air under the diaphragm. Degenerative spine. IMPRESSION: No acute cardiopulmonary pathology. Reviewed, dictated and finalized at location A.
[2024-06-19 18:12] VITALS: BP 133/86; PULSE 71; RESP 20; TEMP 36.6; O2SAT 99
--- NOTE | 2024-06-19 18:26 | ED.URI ---
HPI - URI/Sore Throat General Chief Complaint: Upper Respiratory Infection Stated Complaint: Sinus Time Seen by Provider: 06/19/24 18:20 Source: patient Mode of arrival: ambulatory Limitations: no limitations History of Present Illness HPI Narrative: [place] is a 53-year-old male patient presenting to the clinic today with complaints of sore throat, chest congestion, productive cough with clear phlegm, headache, postnasal drip, shortness of breath, chest heaviness, and runny nose that all started yesterday. He denies any fever, chills, or body aches. History of PR back in November. He denies any active chest pain at this time. MD elicited complaint: cough, sore throat, rhinorrhea, nasal congestion and other (Chest congestion, chest heaviness) Related Data Home Medications Medication Instructions Recorded Confirmed alprazolam 0.25 mg tablet (Xanax) 0.5 mg PO Q4-6H 11/26/20 06/19/24 metoprolol succinate 50 mg 50 mg PO BID 11/26/20 06/19/24 tablet,extended release 24 hr (Toprol XL) hydrocodone 5 mg-acetaminophen 325 1 tablet PO Q4-6H pain >3 04/29/22 06/19/24 mg tablet albuterol sulfate 90 mcg/actuation 2 puff inhalation QID shortness of 06/19/24 06/19/24 aerosol inhaler breath or wheezing nitroglycerin 0.4 mg sublingual 0.4 mg sublingual Q5-15M chest pain 06/19/24 06/19/24 tablet sertraline 100 mg tablet 100 mg DIRECTED 06/19/24 06/19/24 Allergies Allergy/AdvReac Type Severity Reaction Status Date / Time No Known Allergies Allergy Unknown Verified 06/19/24 18:15 Review of Systems Review of Systems: Pertinent positives per HPI. Patient denies any fever, chills, rash, headache, visual changes, dizziness, palpitations, nausea, vomiting, diarrhea, constipation, abdominal pain, or any urinary issues. [facility] Past Medical History Medical History Asthma Bronchitis CAD (coronary artery disease) Heart attack HLD (hyperlipidemia) HTN (hypertension) Hypercholesterolemia Hypertension Mitral valve prolapse SVT (supraventricular tachycardia) Valvular heart disease Surgical History Surgical History H/O heart artery stent x3 History of tonsillectomy Hx laparoscopic cholecystectomy 12/19/20 Family History Family History Mother Patient's mother is in good health Father Patient's father is Lung disease Sibling Patient's brother is in good health Social History Social History Smoking packs per day: 1 Smoking cigarettes per day: 20.0 Years smoked: 20 Smoking pack-years: 20.00 Smoking status: Former smoker Tobacco type: cigarettes Alcohol intake: current Drinks per week: 4 Substance use: never Do You Feel Safe in your Home?: Yes Lack of Transportation: No Lack of Food: Never True Current Housing: I Do Not Have Housing Concerned About Future Housing: No Difficulty Paying Gas/Electric Bills: No Difficulty Paying for Meds: No Currently Unemployed: No Education: Decline to Answer Difficulty w/ Childcare or Family Care: No Living arrangements: with family 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 There is no relevant family history pertinent to the patient complaint. Exam Narrative: General: Well-developed, well nourished, in no apparent distress Head: Normocephalic, atraumatic Eyes: Pupils equally round and reactive to light bilaterally, EOM intact, sclera and conjunctive clear, no discharge, lids normal Ears: TMs intact and congested, ear canals clear, no drainage, grossly
--- NOTE | 2024-06-19 18:27 | ECG_ITS ---
Test Date: 2024-06-19 18:39:20 Measurements Intervals [place] Rate: 67 P: 31 FL: 193 QRS: 3 QRSD: 130 T: 36 QT: 400 QTc: 424 Interpretive Statements SINUS RHYTHM POSSIBLE LEFT ATRIAL ENLARGEMENT [-0.1mV P WAVE IN V1/V2] INCOMPLETE RIGHT BUNDLE BRANCH BLOCK BORDERLINE ECG No previous ECG available for comparison Electronically Signed On 06-20-2024 07:26:31 CDT by Jesús Howell M.D.
[2024-06-19 19:09] LABS: EDCOVIDSCREEN Negative (Negative); EDSTREPNEGPOS1 Negative (Negative)
[2024-06-19] MEDS: ACETAMINOPHEN 500 MG TABLET 1000 MG PO (19:14)
== END 2024-06-19 19:22 | disposition home or self-care (01) ==
PROVIDERS: Emergency Provider Nurse Practitioner Family; PCP Emergency Medicine
DX: B34.9 Viral infection, unspecified (principal); J06.9 Acute upper respiratory infection, unspecified; J02.9 Acute pharyngitis, unspecified; Z20.822 Contact with and (suspected) exposure to COVID-19; Z87.891 Personal history of nicotine dependence; J45.909 Unspecified asthma, uncomplicated; E78.5 Hyperlipidemia, unspecified; I10 Essential (primary) hypertension; E78.00 Pure hypercholesterolemia, unspecified; I34.1 Nonrheumatic mitral (valve) prolapse; I25.2 Old myocardial infarction; I25.10 Atherosclerotic heart disease of native coronary artery without angina pectoris; Z95.5 Presence of coronary angioplasty implant and graft
CPT/HCPCS: 71046; 87081; 87426; 87880; 93005; 99213; A9270; G0463

== ENCOUNTER 2025-04-06 08:26 | Emergency (ER) | payer SELFPAY ==
[2025-04-06] VITALS (16 sets, daily range): BP systolic 142–181; BP diastolic 91–102; PULSE 55–74; RESP 10–25; TEMP 36.6–37.1; O2SAT 97–100
--- NOTE | ~2025-04-06 | XR_ITS ---
EXAMINATION: XR chest 2V 04/06/2025 09:00 INDICATION: Chest pain for one week. Asthma. PROCEDURE: 2 view chest COMPARISON: Comparison to multiple prior studies sequentially, with oldest reviewed study dated 03/2020. FINDINGS: The lungs are clear. The cardiomediastinal silhouette is within normal limits. There are no pleural effusions. There is no pneumothorax suspected. IMPRESSION: 1: NO ACUTE CARDIOPULMONARY DISEASE. Reviewed, dictated and finalized at location A.
--- NOTE | 2025-04-06 08:29 | ECG_ITS ---
Test Date: 2025-04-06 08:34:32 Measurements Intervals [place] Rate: 69 P: 29 MO: 176 QRS: -4 QRSD: 115 T: 20 QT: 381 QTc: 411 Interpretive Statements SINUS RHYTHM INCOMPLETE RIGHT BUNDLE BRANCH BLOCK [90+ ms QRS DURATION, TERMINAL R IN V1/V2, 40+ ms S IN I/aVL/V4/V5/V6] WITH REPOL CHANGES; CANNOT RULE OUT ISCHEMIA Compared to ECG 06/19/2024 18:39:20 T-wave abnormality now present Possible ischemia now present Electronically Signed On 04-07-2025 18:31:12 CDT by Maximilian Michael M.D.
--- OUTSIDE RECORDS SUMMARY | 2025-04-06 08:29 | XMS_ITS | Continuity of Care Document ---
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 Name Role Phone Mitul Valderrama MD Unavailable Unavailable Allergies, Adverse Reactions, Alerts Substance Reaction Status Criticality No Known Allergies Active No Inform ation Medications Medication Instructions Dosage Effective Dates (start - stop) Status Comments Xanax 0.25 mg tablet take 1 tablet by oral route every 4 - 6 hours as needed 0.25 MG - Active PRN for anxiety, avoid driving or operate machine, max 2/24 hours Ritalin 10 mg tablet take 1 Tablet by oral route 2 times every day 10 MG - Active hydrocodone 7.5 mg-acetaminophen 325 mg tablet take 1 tablet by oral route 2 times every day as needed for pain as needed 1 tablet - Active PRN for pain ,avoid driving or operate machines omeprazole 40 mg capsule,delayed release take 1 capsule by oral route every day before a meal 40 MG - Active metoprolol tartrate 50 mg tablet take 1 tablet by oral route 2 times every day with meals 50 MG - Active Celexa 20 mg tablet take 1 tablet by oral route every day 20 MG - Active Crestor 40 mg tablet take 1 tablet by oral route every day 40 MG - Active ranolazine ER 500 mg tablet,extended release,12 hr take 1 tablet by oral route 2 times every day 500 MG - Active Norvasc 5 mg tablet take 1 tablet by oral route every day 5 MG - Active Plavix 75 mg tablet take 1 tablet by oral route every day 75 MG - Active Procedures Procedure Date OFFICE/OUTPATIENT VISIT, EST OFFICE/OUTPATIENT VISIT, EST OFFICE/OUTPATIENT VISIT, EST OFFICE/OUTPATIENT VISIT, EST OFFICE/OUTPATIENT VISIT, EST OFFICE/OUTPATIENT VISIT, EST OFFICE/OUTPATIENT VISIT, EST OFFICE/OUTPATIENT VISIT, EST PREV VISIT, EST, AGE 40-64 OFFICE/OUTPATIENT VISIT, EST OFFICE/OUTPATIENT VISIT, EST OFFICE/OUTPATIENT VISIT, EST PREV VISIT, EST, AGE 40-64 OFFICE/OUTPATIENT VISIT, EST OFFICE/OUTPATIENT VISIT, EST OFFICE/OUTPATIENT VISIT, EST OFFICE/OUTPATIENT VISIT, EST PREV VISIT, EST, AGE 40-64 OFFICE/OUTPATIENT VISIT, EST OFFICE/OUTPATIENT VISIT, EST OFFICE/OUTPATIENT VISIT, EST OFFICE/OUTPATIENT VISIT, EST OFFICE/OUTPATIENT VISIT, EST PREV VISIT, EST, AGE 40-64 OFFICE/OUTPATIENT VISIT, EST OFFICE/OUTPATIENT VISIT, EST OFFICE/OUTPATIENT VISIT, EST OFFICE/OUTPATIENT VISIT, EST PREV VISIT, EST, AGE 40-64 OFFICE/OUTPATIENT VISIT, EST OFFICE/OUTPATIENT VISIT, EST OFFICE/OUTPATIENT VISIT, EST OFFICE/OUTPATIENT VISIT, EST OFFICE/OUTPATIENT VISIT, EST OFFICE/OUTPATIENT VISIT, EST OFFICE/OUTPATIENT VISIT, EST OFFICE/OUTPATIENT VISIT, EST PREV VISIT, EST, AGE 40-64 OFFICE/OUTPATIENT VISIT, EST OFFICE/OUTPATIENT VISIT, EST OFFICE/OUTPATIENT VISIT, EST OFFICE/OUTPATIENT VISIT, EST OFFICE/OUTPATIENT VISIT, EST OFFICE/OUTPATIENT VISIT, EST OFFICE/OUTPATIENT VISIT, EST PREV VISIT, NEW, AGE 40-64 Advance Directives Directive Yes / No Effective Date File Name No Information Encounters Encounter Description Practice Location Reason(s) For Visit Diagnoses Date Provider Providers Copied on Encounter [facility], [address], [place], [place], [address], [place] tel:[phone] [facility] No Information Lavelle Bauman. [address], [place], [place], [address] , [place]. tel:[phone] OFFICE/OUTPA TIENT VISIT, [facility], [place], [address], [place], [place], [address], [place] tel:[phone] [facility] anxiety1 (chief complaint) ADD (chief complaint) pain (chief complaint) GERD1 (chief complaint) Attention deficitChronic pain syndromeGeneralized Anxiety DisorderGERD w/o esophagitis Lavelle Bauman. [address], [place], [place], [address] , [place]. tel:[phone] OFFICE/OUTPA TIENT VISIT, [facility], [place], [address], [place], [place], [address], [place] tel:[phone] [facility] anxiety1 (chief complaint) ADD (chief complaint) pain (chief complaint) GERD1 (chief complaint) GERD w/o esophagitisGenerali zed Anxiety DisorderAttention deficitChronic pain syndrome Lavelle Bauman. [address], [place], [place], [address] , [place]. tel:[phone] OFFICE/OUTPA TIENT VISIT, [facility], [place], [address], [place], [place], [address], [place] tel:[phone] [facility] anxiety1 (chief complaint) ADD (chief complaint) pain (chief complaint) Chronic pain syndromeAttention deficitGeneralized Anxiety Disorder 4 Lavelle Pimentel [address], [place], [place], [address] , [place]. tel:[phone] OFFICE/OUTPA TIENT VISIT, [facility], [place], [address], [address], [place] [phone] [facility] anxiety1 (chief complaint) ADD (chief complaint) pain (chief complaint) HTN (chief complaint) cough1 (chief complaint) Attention deficitChronic pain syndromeGeneralized Anxiety DisorderEssential (primary) hypertensionAcute bronchitis 4 Lavelle Pimentel [address] [place], [address] , [place]. tel:[phone] OFFICE/OUTPA TIENT VISIT, [facility], [place], [address], [address], [place] tel:[phone] [facility] thyroid1 (chief complaint) HLP (chief complaint) low t (chief complaint) anxiety1 (chief complaint) neck pain1 (chief complaint) ADD (chief complaint) Mixed hyperlipidemiaTesti cular hypogonadismCramp and spasmDisorder of thyroid, unspecifiedGenerali zed Anxiety DisorderChronic pain syndromeAttention deficit 4 Lavelle Pimentel [address], [place], [place], [address] , [place]. tel:[phone] OFFICE/OUTPA TIENT VISIT, [facility], [place], [address] [place], [address], [place] [phone] [facility] leg pain1 (chief complaint) glucose1 (chief complaint) fatty liver1 (chief complaint) HLP (chief complaint) thyroid1 (chief complaint) T (chief complaint) Mixed hyperlipidemiaHyper glycemiaFatty liverDisorder of thyroid, unspecifiedTesticul ar hypogonadismCramp and spasmNon-ST elevation (NSTEMI) myocardial infarction 4 Lavelle Pimentel [address], [place], [place], [address] , [place]. tel: [phone] OFFICE/OUTPA TIENT VISIT, EST [facility], [address], [place], [place], [address], [place] tel:[phone] [facility] CAD (chief complaint) pain (chief complaint) ADD (chief complaint) anxiety1 (chief complaint) Non-ST elevation (NSTEMI) myocardial infarctionGeneraliz ed Anxiety DisorderAttention deficitChronic pain syndrome 4 Lavelle Bauman. [address], [place], [place], [address] , [place]. [phone] OFFICE/OUTPA TIENT VISIT, EST [facility], [address] [place], [address], [place] tel:[phone] [facility] anxiety1 (chief complaint) pain (chief complaint) CAD (chief complaint) ADD (chief complaint) Chronic pain syndromeAttention deficitGeneralized Anxiety DisorderMixed hyperlipidemiaEssen tial (primary) hypertension 3 Lavelle Bauman. [address], [place], [place], [address] , [place]. [phone] PREV VISIT, EST, AGE 40-64 [facility], [address], [place], [place], [address], [place] tel:[phone] [facility] physical (chief complaint) Encounter for general adult medical examination without abnormal findings 3 Lavelle Bauman. [address], [place], [place], [address] , [place]. [phone] OFFICE/OUTPA TIENT VISIT, EST [facility], [address] [place], [address], [place] tel:[phone] [facility] ADD (chief complaint) aniety1 (chief complaint) pain (chief complaint) ED (chief complaint) Chronic pain syndromeGeneralized Anxiety DisorderAttention deficitMale erectile dysfunction, unspecifiedEncounte r for screening for malignant neoplasm of colon 3 Lavelle Bauman. [address], [place], [place], [address] , [place]. tel:[phone] OFFICE/OUTPA TIENT VISIT, EST [facility], [address], [place], [place], [address], [place] tel:[phone] [facility] ADD (chief complaint) anxiety1 (chief complaint) pain (chief complaint) sick1 (chief complaint) Attention deficitChronic pain syndromeGeneralized Anxiety DisorderAcute bronchitis 2 Lavelle Bauman. [address], [place], [place], [address] , [place]. tel:[phone] OFFICE/OUTPA TIENT VISIT, EST [facility], [address], [place], [place], [address], [place] tel:[phone] [facility] anxiety1 (chief complaint) ADD (chief complaint) pain (chief complaint) HLP (chief complaint) HTN (chief complaint) Mixed hyperlipidemiaEssen tial (primary) hypertensionGeneral ized Anxiety DisorderChronic pain syndromeAttention deficit 2 Lavelle Bauman. [address], [place], [place], [address] , [place]. [phone] PREV VISIT, EST, AGE 40-64 [facility], [address], [place], [place], [address], [place] tel:[phone] [facility] physical (chief complaint) Encounter for general adult medical examination without abnormal findings 2 Lavelle Bauman. [address], [place], [place], [address] , [place]. [phone] OFFICE/OUTPA TIENT VISIT, EST [facility], [address], [place], [place], [address], [place] tel:[phone] [facility] hemorrhoid 1 (chief complaint) ear pain1 (chief complaint) HemorrhoidOtalgia, right ear 1 Lavelle Bauman. [address], [place], [place], [address] , [place]. tel:[phone] OFFICE/OUTPA TIENT VISIT, EST [facility], [address], [place], [place], [address], [place] tel:[phone] [facility] ADD (chief complaint) anxiety1 (chief complaint) HLP (chief complaint) HTN (chief complaint) gallbladde r1 (chief complaint) pain (chief complaint) Chronic pain syndromeEssential (primary) hypertensionGeneral ized Anxiety DisorderHyperlipide miaAcute cholecystitisAttent ion deficitFamily history of malignant neoplasm of prostate 1 Lavelle Pimentel [address], [place], [place], [address] , [place]. tel:[phone] OFFICE/OUTPA TIENT VISIT, EST [facility], [address], [place], [place], [address], [place] tel:[phone] [facility] pain (chief complaint) pain (chief complaint) toothache1 (chief complaint) Chronic pain syndromeAbdominal painAtypical facial pain 1 Lavelle Pimentel [address], [place], [place], [address] , [place]. tel:[phone] OFFICE/OUTPA TIENT VISIT, EST [facility], [address] [place], [address], [place] tel:[phone] [facility] HLP (chief complaint) ADD (chief complaint) pain (chief complaint) abd pain1 (chief complaint) anxiety1 (chief complaint) Essential (primary) hypertensionGeneral ized Anxiety DisorderChronic pain syndromeHyperlipide miaAttention deficitAbdominal pain 1 Lavelle Pimentel [address], [place], [place], [address] , [place]. tel:[phone] PREV VISIT, EST, AGE 40-64 [facility], [address], [place], [place], [address], [place] tel:[phone] [facility] physical (chief complaint) Encounter for general adult medical examination without abnormal findings 0 Lavelle Pimentel [address], [place], [place], [address] , [place]. tel:[phone] OFFICE/OUTPA TIENT VISIT, [facility], [place], [address], [place], [place], [address], [place] tel:[phone] [facility] abd pain1 (chief complaint) ADD (chief complaint) chronic pain1 (chief complaint) HTN (chief complaint) Chronic pain syndromeGeneralized Anxiety DisorderEssential (primary) hypertensionAttenti on deficitSleep apnea May- 0 Lavelle Bauman. [address], [place], [place], [address] , [place]. tel:[phone] OFFICE/OUTPA TIENT VISIT, [facility], [place], [address], [place], [place], [address], [place] tel:[phone] [facility] abd pain1 (chief complaint) pain (chief complaint) anxiety1 (chief complaint) fatigue1 (chief complaint) Chronic pain syndromeGeneralized Anxiety DisorderSleep apneaGERD w/o esophagitis 0 Lavelle Bauman. [address], [place], [place], [address] , [place]. tel:[phone] Referring Provider: [address], [place], [place], [address]. tel:[phone] OFFICE/OUTPA TIENT VISIT, [facility], [place], [address], [place], [place], [address], [place] tel:[phone] [facility] GERD1 (chief complaint) pain (chief complaint) anxiety1 (chief complaint) fatigue1 (chief complaint) GERD w/o esophagitisChronic pain syndromeGeneralized Anxiety DisorderFatigue 0 Lavelle Bauman. [address], [place], [place], [address] , [place]. tel:[phone] Referring Provider: Kurt [address], [place], [place], [address]. tel:[phone] OFFICE/OUTPA TIENT VISIT, [facility], [place], [address], [place], [place], [address], [place] tel:[phone] [facility] HLP (chief complaint) back pain1 (chief complaint) ADD (chief complaint) HTN (chief complaint) anxiety1 (chief complaint) HyperlipidemiaEssen tial (primary) hypertensionSleep apneaGeneralized Anxiety DisorderChronic pain syndromeGERD w/o esophagitis 9 Lavelle Bauman. [address], [place], [place], [address] , [place]. [phone] Referring Provider: Kurt Herrera [address], [place], [place], [address]. tel:[phone] OFFICE/OUTPA TIENT VISIT, EST [facility], [address], [place], [place], [address], [place] tel:[phone] [facility] HLP (chief complaint) anxiety1 (chief complaint) weight loss1 (chief complaint) back pain1 (chief complaint) HyperlipidemiaAbnor mal weight lossGeneralized Anxiety DisorderChronic pain syndrome 9 Lavelle Bauman. [address], [place], [place], [address] , [place]. tel:[phone] Referring Provider: Kurt Herrera [address], [place], [place], [address]. tel:[phone] PREV VISIT, EST, AGE 40-64 [facility], [address], [place], [place], [address], [place] tel:[phone] [facility] PHysical (chief complaint) Encntr for general adult medical exam w/o abnormal findings 9 Lavelle Bauman. [address], [place], [place], [address] , [place]. tel:[phone] Referring Provider: Kurt Her[address], [place], [place], [address]. tel:[phone] OFFICE/OUTPA TIENT VISIT, EST [facility], [address], [place], [place], [address], [place] tel:[phone] [facility] anxiety1 (chief complaint) fatigue1 (chief complaint) chronic pain1 (chief complaint) Generalized Anxiety DisorderChronic pain syndromeFatigueAtte ntion deficit 9 Lavelle Bauman. [address], [place], [place], [address] , [place]. [phone] Referring Provider: Kurt Her[address], [place], [place], [address]. tel:[phone] OFFICE/OUTPA TIENT VISIT, [facility], [place], [address], [place], [place], [address], [place] [phone] [facility] sleep apnea1 (chief complaint) chronic pain1 (chief complaint) gastroente ritis1 (chief complaint) HTN (chief complaint) HLP (chief complaint) HyperlipidemiaSleep apneaLeukocytosisVi ral infectionEssential (primary) hypertension 9 Lavelle Pimentel [address], [place], [place], [address] , [place]. [phone] Referring Provider: Kurt Herrera [address], [place], [place], [address]. tel:[phone] OFFICE/OUTPA TIENT VISIT, [facility], [place], [address], [place], [place], [address], [place] tel:[phone] [facility] fatty liver1 (chief complaint) chronic pain1 (chief complaint) anxiety1 (chief complaint) ADD (chief complaint) sleep apnea1 (chief complaint) HLP (chief complaint) Attention deficitGeneralized Anxiety DisorderSleep apneaFatty liverHyperlipidemia Chronic pain syndrome 8 Lavelle Bauman. [address], [place], [place], [address] , [place]. [phone] Referring Provider: Kurt Herrera [address], [place], [place], [address]. tel:[phone] OFFICE/OUTPA TIENT VISIT, [facility], [place], [address], [place], [place], [address], [place] tel:[phone] [facility] sleep apnea1 (chief complaint) alcohol1 (chief complaint) chronic pain1 (chief complaint) anxiety1 (chief complaint) ADD (chief complaint) Sleep apneaLiver diseaseChronic pain syndromeGeneralized Anxiety DisorderAttention deficitAlcohol dependence 8 Lavelle Pimentel [address], [place], [place], [address] , [place]. tel:[phone] PREV VISIT, EST, AGE 40-64 [facility], [address], [place], [place], [address], [place] tel:[phone] [facility] Physical (chief complaint) HyperlipidemiaSleep apneaLiver diseaseHemorrhoidEn counter for general adult medical exam w abnormal findings 8 Lavelle Pimentel [address], [place], [place], [address] , [place]. [phone] Referring Provider: [address], [place], [place], [address]. tel:[phone] OFFICE/OUTPA TIENT VISIT, EST [facility], [address], [place], [place], [address], [place] tel:[phone] [facility] sleep apnea1 (chief complaint) HLP (chief complaint) LFT (chief complaint) anxiety1 (chief complaint) ADD1 (chief complaint) Sleep apneaLiver diseaseHyperlipidem iaChronic pain syndrome 8 Lavelle [address], [place], [place], [address] , [place]. tel:[phone] Referring Provider: Kurt Her[address], [place], [place], [address]. tel:[phone] OFFICE/OUTPA TIENT VISIT, EST [facility], [address], [place], [place], [address], [place] tel:[phone] [facility] toothache1 (chief complaint) HTN (chief complaint) sleep apnea1 (chief complaint) Sleep apneaAtypical facial pain 8 Lavelle Bauman. [address], [place], [place], [address] , [place]. tel:[phone] Referring Provider: Kurt Herrera [address], [place], [place], [address]. tel:[phone] OFFICE/OUTPA TIENT VISIT, [facility], [place], [address], [place], [place], [address], [place] tel:[phone] [facility] anxiety1 (chief complaint) neck pain1 (chief complaint) LFT (chief complaint) ADD1 (chief complaint) sinus (chief complaint) fatigue1 (chief complaint) Liver diseaseGeneralized Anxiety DisorderAcute sinusitisFatigue 8 Lavelle Bauman. [address], [place], [place], [address] , [place]. tel:[phone] Referring Provider: Kurt Herrera [facility], [place], [place], [address]. tel:[phone] OFFICE/OUTPA TIENT VISIT, [facility], [place], [address], [place], [place], [address], [place] tel:[phone] [facility] ADD (chief complaint) GERD1 (chief complaint) sinus1 (chief complaint) neck pain1 (chief complaint) anxiety1 (chief complaint) HyperlipidemiaGener alized Anxiety DisorderLiver diseaseAttention deficit 7 Lavelle Pimentel [address], [place], [place], [address] , [place]. tel:[phone] Referring Provider: Kurt Herrera [address], [place], [place], [address]. tel:[phone] OFFICE/OUTPA TIENT VISIT, [facility], [place], [address], [place], [place], [address], [place] tel:[phone] [facility] GERD1 (chief complaint) lFT (chief complaint) HLP (chief complaint) anxiety1 (chief complaint) ADD (chief complaint) HyperlipidemiaLiver diseaseAttention deficitGERD w/o esophagitis 7 Lavelle Bauman. [address], [place], [place], [address] , [place]. tel:[phone] Referring Provider: Kurt Her[address], [place], [place], [address]. tel:[phone] OFFICE/OUTPA TIENT VISIT, [facility], [place], [address], [place], [place], [address], [place] tel:[phone] [facility] gERD1 (chief complaint) anxiety1 (chief complaint) neck pain1 (chief complaint) HLP (chief complaint) Generalized Anxiety DisorderChronic pain syndromeGERD w/o esophagitisHyperlip idemia 7 Lavelle Bauman. [address], [place], [place], [address] , [place]. tel:[phone] Referring Provider: Kurt [address], [place], [place], [address]. tel:[phone] OFFICE/OUTPA TIENT VISIT, [facility], [place], [address], [place], [place], [address], [place] tel:[phone] [facility] anxiety1 (chief complaint) CAD (chief complaint) neck pain1 (chief complaint) HLP (chief complaint) Generalized Anxiety DisorderEssential (primary) hypertensionCoronar y artery disease of [place] coronary artery without angina pectorisHyperlipide azul 7 Lavelle Bauman. [address], [place], [place], [address] , [place]. tel:[phone] Referring Provider: Kurt Herrera [address], [place], [place], [address]. tel:[phone] PREV VISIT, EST, AGE 40-64 [facility], [address], [place], [place], [address], [place] tel:[phone] [facility] Physical (chief complaint) Encounter for general adult medical exam w abnormal findingsHyperlipide [facility] diseaseGeneralized Anxiety Disorder Dec- 7 Lavelle Bauman. [address], [place], [place], [address] , [place]. tel:[phone] Referring Provider: Mitul Valderrama, [address], [place], [place], [address]. tel:[phone] OFFICE/OUTPA TIENT VISIT, [facility], [place], [address], [place], [place], [address], [place] tel:[phone] [facility] HTN (chief complaint) neck pain1 (chief complaint) Essential (primary) hypertensionCervica lgiaBody mass index (BMI) 32.0-32.9, adult 7 Lavelle Bauman. [address], [place], [place], [address] , [place]. [phone] Referring Provider: Mitul Valderrama [address], [place], [place], [address]. tel:[phone] OFFICE/OUTPA TIENT VISIT, [facility], [place], [address], [place], [place], [address], [place] tel:[phone] [facility] anxiety1 (chief complaint) HLP (chief complaint) CAD (chief complaint) neck pain1 (chief complaint) Essential (primary) hypertensionHyperli pidemiaCervicalgiaG eneralized Anxiety Disorder 7 Lavelle Bauman. [address], [place], [place], [address] , [place]. [phone] Referring Provider: Kurt Herrera [address], [place], [place], [address]. tel:[phone] OFFICE/OUTPA TIENT VISIT, [facility], [place], [address], [place], [place], [address], [place] tel:[phone] [facility] anxiety1 (chief complaint) leg pain1 (chief complaint) neck pain1 (chief complaint) CervicalgiaPain in left lower legPain in unspecified joint 6 Lavelle Bauman. [address], [place], [place], [address] , [place]. tel:[phone] Referring Provider: Mitul Valderrama, [address], [place], [place], [address]. tel:[phone] OFFICE/OUTPA TIENT VISIT, [facility], [place], [address], [place], [address], [place] tel:[phone] [facility] anxiety1 (chief complaint) CAD (chief complaint) neck pain1 (chief complaint) Essential (primary) hypertensionGeneral ized Anxiety DisorderCoronary artery disease of [place] coronary artery w/o angina pectoris 6 Lavelle Bauman. [address], [address], [place], [place], [id number] , [place]. [phone] Referring Provider: Kurt Herrera [address], [place], [place], [id number]. tel:[phone] OFFICE/OUTPA TIENT VISIT, [facility], [place], [address], [place], [place], [id number], [place] tel:[phone] [facility] joint pain1 (chief complaint) anxiety1 (chief complaint) HTN (chief complaint) neck pain1 (chief complaint) Generalized Anxiety DisorderEssential (primary) hypertensionPain in unspecified jointChronic pain syndrome 6 Lavelle Bauman. [address], [place], [place], [id number] , [place]. [phone] Referring Provider: Kurt Herrera [address], [place], [place], [id number]. tel:[phone] OFFICE/OUTPA TIENT VISIT, [facility], [place], [address], [place], [place], [id number], [place] tel:[phone] [facility] anxiety1 (chief complaint) HTN1 (chief complaint) HLP1 (chief complaint) neck pain1 (chief complaint) Generalized Anxiety DisorderEssential (primary) hypertensionHyperli pidemiaChronic pain syndrome 6 Lavelle Pimentel [address], [place], [place], [id number] , [place]. [phone] Referring Provider: Kurt Herrera [address], [place], [place], [id number]. tel:[phone] PREV VISIT, NEW, AGE 40-64 [facility], [address], [place], [place], [id number], tel:[phone] [facility] physical (chief complaint) Encntr for general adult medical exam w/o abnormal findings 6 Valderrama Mitul. [address], [address], [address] , [place]. tel:[phone] Referring Provider: Kurt Her[address], [place], [place], [address]. tel:[phone] Family History Family Member Type Diagnosis Age At Onset Father Problem (finding) CVA Mother Problem (finding) Alive and well Father Problem (finding) Father Problem (finding) prostate CA Brother Problem (finding) Alive and well Payers Payer name Insurance type Covered green party ID Authoriza tion(s) No Information Social History Type Description Quantity Date Captured Comments Sex Male Smoking Status No Information Chief Complaint And Reason For Visit No Information Plan Of Treatment Date Type Action Status Goal Tobacco cessation counseling completed Goal Special diet education compl eted Goal Tobacco cessation counseling completed Goal Special diet education compl eted Goal Tobacco cessation counseling completed Goal Special diet education compl eted Goal Special diet education compl eted Goal Special diet education compl eted Goal Tobacco cessation counseling completed Goal Special diet education compl eted Goal Tobacco cessation counseling completed Goal Special diet education compl eted Goal Special diet education compl eted Referral Ordered: COLONOSCOPY AND BIOPSY ordered Referral Referred To: César Gannon [address], [phone] Ordered: Referrals: César Gannon. Evaluate and treat ordered Referral Ordered: UPPER GI W/ KUB ordered Referral Ordered: Physical Therapy (related to Chronic pain syndrome) ordered Referral Ordered: Gastroenterology (related to Abnormal weight loss) ordered Referral Ordered: NUC MED HIDA (HEPATOBILIARY) SCAN ordered Referral Ordered: Referrals: Gastroenterology. Evaluate and treat ordered Referral Referred To: César Gannon MD [address] [place], [place], [id number] Ordered: Referrals: César Gannon MD Evaluate and treat ordered Referral Ordered: SLEEP STUDY, ATTENDED ordered Referral Ordered: US EXAM, ABDOM, COMPLETE ordered Referral Ordered: UPPER GI ENDOSCOPY, BIOPSY ordered Referral Ordered: US ARTERIAL ANKLE/BRACIAL IND ordered Referral Ordered: Physical Therapy (related to Chronic pain syndrome) ordered Referral Ordered: CERVICAL SPINE XRAY 2 OR 3 VIEWS ordered Referral Ordered: Physical Therapy (related to Encntr for general adult medical exam w/o abnormal findings) ordered Referral Referred To: Physical Therapy Ordered: Referrals: Physical Therapy. Evaluate and treat ordered History Of Present Illness Encounter Date Complaint History Of Prese nt Illness anxiety1 Pt has chronic a nxiety and depression Pt takes celexa and xanax PRn and doing well. 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 Patient feels scatterbrained. Patient feel poor focus and difficulty completing tasks. Patient states that ritalin is helping with symptoms. Patient feels more focused. Pt feels more energy. Patient denies any headache, dry mouth, headache, chest pain. Patient denies any appetite loss. pain Pt has chronic n asim pain due to DDD Pt denies any radiculopathy Pt takes norco PRN Pt needs norco refilled. GERD1 Pt has chronic G ERD. pt doing well with omeprazole Pt denies any abd pain pain Pt has chronic n asim pain due to DDD Pt denies any radiculopathy Pt takes norco PRN Pt needs norco refilled. GERD1 Pt has been havi ng persistent GERD symptoms and he has been taking prilosec OTC but not helping Pt denies any abd pain, nausea, vomiting . anxiety1 Pt has chronic a nxiety and depression Pt takes celexa and xanax PRn and doing well. 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 Patient feels scatterbrained. Patient feel poor focus and difficulty completing tasks. Patient states that ritalin is helping with symptoms. Patient feels more focused. Pt feels more energy. Patient denies any headache, dry mouth, headache, chest pain. Patient denies any appetite loss. ADD Patient has ADD. Patient has inattentive type. Patient feels scatterbrained. Patient feel poor focus and difficulty completing tasks. Patient states that Ritalin is helping with symptoms. Patient feels more focused. Pt feels more energy. Patient denies any headache, dry mouth, headache, chest pain. Patient denies any appetite loss. anxiety1 Pt has chronic a nxiety and depression Pt takes celexa and xanax PRn and doing well. Pt denies any suicidal or homicidal thought .Pt denies any crying spells. pain Pt has chronic n asim pain due to DDD Pt denies any radiculopathy Pt takes norco PRN Pt needs norco refilled. pain Pt has chronic n asim pain due to DDD Pt denies any radiculopathy Pt takes norco PRN Pt needs norco refilled. HTN Pt has HTn and C AD Pt takes metoprolol and norvasc and his bp is ok Pt sees cardiology Pt needs metoprolol refilled . cough1 pt c/o acute pro ductive cough with some yellow phlegm for one week Pt c/o sinus congestion Pt went to urgent care and was given steroid but did not help Pt denies any sob anxiety1 pt has chronic a nxiety and depression Pt states that zoloft does not work and causes low libido and he wants to go back to celexa. Pt takes xanax PRn Pt denies any suicidal or homicidal thought ADD Pt has ADD pt ne eds ritalin refilled. thyroid1 Pt has history o f mildly high thyroid Pt denies any dysphagia or neck pain Pt had repeat TFT done which were all normal HLP Pt has HLP Pt st opped crestor completely. He was told to stay on 20 mg crestor but he stopped it completely. His lipid profile is high. low t Pt has low T Pt unable to afford testosterone and he is off T. He is [facility] Pt denies any testicular pain, atrophy or nodule anxiety1 Pt has chronic a nxiety and depression Pt feels more depressed lately due to financial stress Pt has been having crying spells Pt denies any suicidal or homicidal thought. Pt is on celexa and xanax PRN neck pain1 Pt has chronic n asim pain due to DDD Pt denies any radiculopathy Pt takes norco PRN Pt needs norco refilled. his bilateral upper leg pain and weakness resolved without crestor ADD Pt has ADD Pt do ing ok with ritalin glucose1 Pt has mildly hi gh glucose Pt denies any polyuria, polydipsia. fatty liver1 Pt has fatty dionna er. His LFT is mildly high Pt denies any abd pain or jaundice. HLP Pt has HLP Pt bland s been taking crestor 40 mg daily thyroid1 Pt has slightly suppressed tsh and low T4 Pt denies any dysphagia or neck pain T Pt has low T. pt has been getting depo [facility] from [facility] recently Pt was between testosterone injection during lab work. Pt denies any testicular pain, atrophy or nodule leg pain1 Pt c/o bilateral upper thigh area cramp and pain during sleep for several days. pt denies any swelling .Pt denies any calf pain Pt denies any chest pain or sob Pt denies any recent travel or bedrest. CAD Pt has history o f CAD with stent and he has been noncompliant with medication chronically. Pt is noncompliant with lab work. Pt suffered acute NSTMI about 6 weeks ago and he was admitted to [facility] and he was evaluated by electrical engineering technologist in hospital Pt had cardiac cath done which showed occlusion of the proximal RCA artery but with good collaterals. Cardiology did not do any interventions and opted for medical management. He has been having recurrent chest pain still and he was started on ranolazine last week by cardiology. He is also on ASA, plavix and crestor and norvasc and metoprolol as well. Pt states that he feels rather severe chest pain frequently regardless of physical activity. Pt states that ranolazine has not been helping his chest pain at all. pain Pt has chronic n asim pain due to DDD Pt denies any radiculopathy Pt takes norco PRN Pt needs norco refilled ADD Patient has ADD. Patient has inattentive type. Patient feels scatterbrained. Patient feel poor focus and difficulty completing tasks. Patient states that Ritalin is helping with symptoms. Patient feels more focused. Pt feels more energy. Patient denies any headache, dry mouth, headache, chest pain. Patient denies any appetite loss. anxiety1 Pt has chronic a nxiety and depression Pt takes celexa and xanax PRN and doing ok Pt denies any suicidal or homicidal thought pt denies any crying spells anxiety1 Pt has chronic a nxiety and depression Pt takes celexa and xanax PRn and doing ok Pt denies any suicidal or homicidal thought Pt denies any crying spells pain Pt has chronic n asim pain due to DDD Pt denies any radiculopathy Pt takes norco PRN Pt needs norco refilled CAD Pt has CAD with HTn with stent Pt denies any chest pain Pt sees cardiology Pt takes metoprolol, plavix and norvasc. Pt needs metoprolol refilled Pt has not seen cardiology for a while. Pt has HLP Pt supposes to take crestor but he has been out of crestor for long time and he never did lab work and followed up ADD Pt has ADD, pt t akes ritalin and doing ok Pt needs ritalin and doing ok. physical Pt needs annual physical Pt has anxiety and depression Pt takes celexa and xanax PRN and doing ok Pt denies any suicidal or homicidal thought Pt denies any crying spells. Pt has ADD. Pt doing ok with ritalin PRN. Pt has HTN with CAD with stent. Pt sees cardiology. Pt c/o vague chest pain recently and he saw cardiology recently and he is on plavix and norvasc now. He will do cardiac cath soon he denies any acute chest pain. Pt has chronic neck pain. Pt takes norco PRN for pain and doing ok . Pt has HLP Pt takes lipitor. Pt diane any myalgia. Pt feels cloudy brained and chronic fatigue. Pt does have sleep apnea but he is noncompliant with CPAP. Pt has chronic ED Pt states that sildenafil did not help Pt has decent libido Pt denies any testicular pain or atrophy or nodule ADD Pt has ADD Pt do ing ok with ritalin. Pt feels more focused. Pt denies any side effects . Pt has not been getting ritalin from pharmacy due to shortage aniety1 Pt has chronic a nxiety and depression Pt takes celexa and doing ok. Pt denies any suicidal or homicidal thought .Pt denies any crying spells. Pt takes xanax PRn as well. pain Pt has chronic n asim pain due to DDD Pt denies any worsening pain PT denies any arm weakness. Pt takes norco PRN for pain and doing ok, Pt denies any radiculopathy or any arm weakness. Pt failed NSAID ED Pt has been beckie sánchez ED issue Pt has good libido Pt states that celexa used to help him with libido and eD but not anymore .Pt denies any testicular pain, atrophy or nodule. Pt wants to try ED meds. ADD Pt has ADD Pt do ing ok with ritalin. Pt feels more focused. Pt denies any side effects . anxiety1 Pt has chronic a nxiety and depression Pt takes celexa and doing ok. Pt denies any suicidal or homicidal thought .Pt denies any crying spells. Pt takes xanax PRn as well. pain Pt has chronic n asim pain due to DDD Pt denies any worsening pain PT denies any arm weakness. Pt takes norco PRN for pain and doing ok, Pt denies any radiculopathy or any arm weakness. Pt failed NSAID sick1 Pt c/o sinus con gestion ,sneezing, productive cough with yellow phlegm for 2 days. Pt denies any fever or sob. Pt is vaccinated for COVID Pt tested negative for COVID today at home. Pt also feels mildly fatigue with sinus headache .Pt denies any GI symptoms anxiety1 Pt has chronic a nxiety and depression Pt takes celexa and doing ok. Pt denies any suicidal or homicidal thought .Pt denies any crying spells. Pt takes xanax PRn as well. ADD Pt has ADD Pt do ing ok with ritalin. Pt feels more focused. Pt denies any side effects . pain Pt has chronic n asim pain due to DDD Pt denies any worsening pain PT denies any arm weakness. Pt takes norco PRN for pain and doing ok, Pt denies any radiculopathy or any arm weakness. HLP Pt has HLP Pt amadou valencia lipitor. His TG is borderline high. Pt denies any myalgia HTN Pt has HTN. t ta kes metoprolol and his bp is around 130/70 at home Pt denies any chest obie or sob physical Pt needs annual physical pt has HTN Pt takes metoprolol and his bp is ok. He states that his bp is around 130/70 at home Pt has chronic anxiety and depression pt takes celexa and xanax PRn and doing ok pt denies any suicidal or homicidal thought Pt denies any crying spells . Pt has sleep apnea but he is noncompliant with cpap. Pt does feel fatigue. Pt has ADD symptoms and he is doing ok with ritalin Pt has chronic neck pain due to DDD Pt takes norco PRN for pain and doing ok Pt has HLP ,Pt takes lipitor Pt denies any myalgia pt has not done lab yet hemorrhoid1 Pt states that h e has a chronic internal hemorrhoid and he only notices popping out when he has hard BM, etc .Pt notices occasional bright red blood when he wipes when he notices flare up of the internal hemorrhoid. Pt states that he has above hemorrhoid for long time. He also notices a small external hemorrhoid which is constant for the past 3 weeks and it is painful and he notices frequent bright red blood from the hemorrhoid since the onset 3 weeks ago .Pt supposes to do a colonoscopy by GI which he is not sure if he did or not. Pt states that he does not remember if he had a colonoscopy or not. He notices mild pain around the hemorrhoid. He denies any rectal trauma ear pain1 Pt c/o mild righ t ear pain for 2 days Pt denies any left ear pain, hearing loss or drainage .Pt notices mild muffled hearing right side pt denies any recent swimming Pt denies any sinus symptoms Pt wants abx ADD Patient has ADD. Patient has inattentive type. Patient feels scatterbrained. Patient feel poor focus and difficulty completing tasks. Patient states that ritalin is helping with symptoms. Patient feels more focused. Pt feels more energy. Patient denies any headache, dry mouth, headache, chest pain. Patient denies any appetite loss. anxiety1 Pt has chronic a nxiety and depression Pt takes celexa and xanax PRN and doing ok Pt denies any suicidal or homicidal thought Pt denies any crying spells HLP Pt has HLP. Pt t akes lipitor .Pt denies any myalgia HTN Pt has HTN ,Pt t akes metoprolol and his bp is ok at home Pt denies any chest pain or headache. gallbladder1 Pt is s/p cholec ystectomy and his abd pain resolved. Pt also denies any GERD and he is off protonix . pain Pt has chronic n asim pain due to DDD Pt denies any worsening pain PT denies any arm weakness. Pt takes norco PRN for pain and doing ok, Pt denies any radiculopathy or any arm weakness. pain Pt has intermitt ent right upper quadrant abd pain, especially postprandial. Pt has GERD and EGD showed HH Pt is on protonix. . Pt denies any acute pain. Pt had HIDA done which showed gallbladder dysfunction. pain Pt has chronic n asim pain due to DDD Pt denies any worsening pain PT denies any arm weakness. Pt takes norco PRN for pain and doing ok toothache1 Pt c/o acute ons et of toothache since two days ago. Pt c/o right upper molar pain with some gum swelling Pt denies any facial pain or swelling PT denies any fever or headache or ear pain. Pt could not get into dentist abd pain1 Pt has intermitt ent right upper quadrant abd pain, especially postprandial. Pt has GERD Pt still has not done HIDA scan yet. Pt denies any acute pain pain Pt has chronic n asim pain due to DDD Pt denies any worsening pain PT denies any arm weakness. Pt takes norco PRN for pain and doing ok HLP pt has HLP Pt ta kes lipitor and his lipid profile is borderline .Pt denies any myalgia ADD Pt has ADD Pt do ing ok with ritalin PT feels more focused. Pt also feels fatigue Pt has sleep apnea but he does NOT want CPAP anxiety1 Pt has chronic a nxiety and depression Pt takes celexa and xanax PRn and doing ok Pt denies any suicidal or homicidal thought physical PT needs annual physical Pt has HTN .Pt takes metoprolol. he does not check his bp at home. his bp was high in ER recently. Pt denies any headache. Pt has HLP. Pt takes lipitor. Pt has anxiety and depression Pt takes celexa and xanax PRN and doing ok Pt denies any suicidal or homicidal thought. Pt had EGD done which showed hiatal hernia .Pt has chronic GERD Pt takes protonix. Pt has chronic neck pain .Pt went to Er recently due to right upper quadrant abd pain post meal and ultrasound showed thicken gallbladder wall thickening. Pt denies any nausea, vomiting Pt states that he is not in pain currently. Pt also has right tooth abscess right upper molar for several days Pt is on amoxil now per dentist but he could not get into to see dentist until next week. Pt c/o pain and right side facial swelling despite on amoxicillin. Pt is out of norco. Pt states that ibuprofen does not help his pain. abd pain1 Pt has chronic a nxiety and depression. Pt takes celexa and xanax PRn and doing ok Pt denies any suicidal or homicidal thought Pt denies any crying spells ADD Pt has ADD Pt do ing ok with ritalin PT feels more focused. Pt also feels fatigue Pt has sleep apnea but he does NOT want CPAP chronic pain1 Pt has chronic n saim pain due to DDD Pt denies any worsening pain PT denies any arm weakness. Pt takes norco PRN for pain and doing ok HTN Pt has HTN. Pt t akes metoprolol and his bp is around 120/70 at home Pt denies any chest pain or headache pain Pt has chronic n asim pain Pt denies any worsening pain. Pt failed NSAID and ultram. Pt takes norco PRN for pain Pt has DDD. anxiety1 Pt has chronic a nxiety and depression. Pt takes celexa and xanax PRn and doing ok. Pt denies any suicidal or homicidal thought. Pt denies any crying spells fatigue1 Pt has chronic f atigue Pt has sleep apnea. Pt does not want to use cpap. Pt denies any snoring or any trouble with breathing at night abd pain1 Pt has intermitt ent midabdominal pain and postprandial nausea and some diarrhea after food chronically Pt has not done gastric empty study Pt pain Pt has chronic n asim pain Pt denies any worsening pain. Pt failed NSAID and ultram. Pt takes norco PRN for pain Pt has DDD. Pt needs flexeril refill anxiety1 Pt has chronic a nxiety and depression. Pt takes celexa and xanax PRn and doing ok. Pt denies any suicidal or homicidal thought fatigue1 PT has ADD, fati kristi. Pt has sleep apnea but noncompliant with cpap. Pt takes ritalin and doing ok Pt feels more energy GERD1 Pt has chronic G ERD and he has midepigastric abdominal and periumbilical pain post food. Pt had benign HIDA scan and EGD per patient recently but I do not have any results .Pt is on protonix now Pt is off zantac ,Pt states that he usually has abdominal cramp and pain and needs to have BM post food. Pt had several episodes of postprandial vomiting which is projectile. Pt not sure if he had colonoscopy or not recently. Pt feels nauseated after food almost every time. Pt states that he had endoscopy and hIDA scan done at GI office. back pain1 Pt was lifting a law mower last night and he felt acute onset of lower back pain with occasional radiation to left leg without numbness. Pt c/o sharp pain Pt has 8/10 pain and prompted him to go to ER this morning and he had negative L spine x ray and sent home to follow up with me Pt denies any loss of bladder control pt c/o 8/10 pain currently. Pt denies any loss of bowel or bladder control ADD Pt has ADD and s leep apnea Pt is noncompliant with cpap. pt is on ritalin. Pt doing ok Pt has chronic fatigue anxiety1 Pt has anxiety a nd depression Pt denies any suicidal or homicidal thought. Pt denies any crying spells. Pt takes celexa and doing ok HLP Pt has been taki ng lipitor His lipid profile is ok. His TG is borderline high Pt denies any myalgia HTN Pt has HTN Pt ta kes metoprolol and his bp is stable. HLP Pt has HLP Pt ta kes lipitor Pt just had lab done last week but is not available yet for review pt denies any myalgia anxiety1 Pt has chronic a nxiety pt denies any depression or any suicidal thought, Pt denies any crying spells. Pt takes xanax RPn and doing ok weight loss1 Pt lost 13 pound s since last year Pt denies any appetite loss, early satiety, bloating, diarrhea, blood in stool. Pt states that he does have stomach upset and nausea after food chronically. Pt has GERD frequently. Pt is noncompliant with EGD Pt was referred but he never did last year. Pt states that he is trying to eat healthier but he has not changed any activity level back pain1 Pt has chronic n asim pain Pt has mild radiculopathy. Pt stats that lifted something two weeks ago and sprained his low back Pt denies any sciatica or any loss of bladder control. Pt has low back pain muscle spasm and pain. PHysical Pt needs annual physical. Pt has anxiety and depression, Pt takes celexa and xanax and doing ok Pt denies any suicidal or homicidal thought, Pt denies any crying spells, pt has chronic neck pain due to DDD ,Pt denies any radiculopathy pt has sleep apnea and chronic fatigue and aDD, Pt doing ok with ritalin, Pt is noncompliant with cap. Pt has HLP ,Pt takes lipitor, PT denies any myalgia pT has not done lab yet. Pt also has HTN Pt doing ok with metoprolol ,Pt denies any chest pain or headache or sob . anxiety1 Pt has chronic a nxiety and depression. Pt takes celexa and xanax PRn and doing ok. Pt denies any suicidal or homicidal thought fatigue1 Pt has sleep picket [employer]. Pt is noncompliant with cpap. Pt still has not done cpap yet .Pt feels fatigue. Pt takes ritalin for energy and concentration chronic pain1 Pt has chronic n asim pain. Pt denies any radiculopathy. pt takes norco PRN for pain. pt failed NSAID and PT sleep apnea1 Pt has sleep picket [employer] e[employer]. Pt still has not done CPAP yet. Pt is noncompliant. Pt denies any fatigue chronic pain1 Pt has chronic n asim pain Pt denies any worsening pain. Pt failed NSAID and ultram. Pt takes norco PRN for pain gastroenteritis1 Pt went to ER 3 days ago for acute onset of abdominal pain, vomiting and nonbloody diarrhea. pt had benign Ct scan and lab showed mild leukocytosis HTN Pt has HTN. Pt t akes metoprolol. His BP is stable. HLP Pt takes lipitor daily. Pt denies any myalgia ADD Pt has ADD. Pt h as inattentive type. Pt doing ok with ritalin. fatty liver1 Pt has fatty dionna er Pt denies any abd pain. Pt does not have hepatitis chronic pain1 Pt has chronic n asim pain due to DDD Pt denies any worsening pain Pt denies any radiculopathy. pt failed NSAID and ultram anxiety1 Pt bland chronic an xiety and depression. pt takes celexa and xanax PRn and doing ok. Pt denies any suicidal or homicidal thought HLP Pt has HLP. Pt h as high TC and Tg. Pt takes lipitor but he keeps skipping dose. Pt denies any myalgia sleep apnea1 pt has sleep picket [employer]. Pt has not done cpap yet. Pt does snore and has trouble with breathing at night Pt feels fatigue, Pt c/o productive coughing with some sob for one week. Pt has green phlegm and he also has some sore throat and sinus symptoms. Pt denies any calf pain pt denies any recent travel or bedrest. Pt denies any fever, Pt denies any calf pain. Pt feels slightly sob with coughing. sleep apnea1 Pt has sleep picket [employer] e[employer] Pt finally has appointment with sleep center for CPAP study this weekend. alcohol1 Pt drinks 12-24 beer per week and he drinks sometimes nightly and sometimes every other day chronic pain1 Pt has chronic n asim pain Pt denies any radiculopathy Pt denies any numbness pt failed NSAID anxiety1 Pt has chronic a nxiety and depression Pt takes celexa and xanax prn and doing ok. pt denies any suicidal or homicidal thought. Pt denies any crying spells ADD Pt has ADD, inat tentive type. Pt feels more energy wit ritalin. pt feels mental cloudiness daily Physical Pt needs annual physical Pt has not done anything since his last visit. Pt has not done lab work, liver ultrasound, CPAP, etc Pt has chronic neck pain due to DDD and also anxiety and depression and ADD Pt takes celexa, xanax, norco and ritalin and doing ok. Pt denies any radiculopathy. Pt has been [place] of [place] work recently . Pt has external hemorrhoid for several month and is painful. Pt notices bright red blood when wiping. Pt had hemorrhoid for 2 months. Pt has been using OTC hemorrhoid cream for symptoms relief. Pt denies any other complaints sleep apnea1 Pt has sleep picket [employer] e[employer]. Pt has cpap study scheduled soon HLP Pt takes lipitor . Pt denies any myalgia. LFT Pt has high LFT Pt has not done liver ultrasound yet. Pt cori abd pain anxiety1 Pt has chronic a nxiety and depression. Pt takes celexa and xanax PRN Pt denies any suicidal or homicidal thought. Pt denies any crying spells. ADD1 Pt takes ritalin . Pt doing ok Pt feels more focused HTN Pt has HTn and C AD with stent.. pt denies any chest pain Pt sees cardiology sleep apnea1 Pt told me he al ready had a home sleep study which showed postivie for sleep apnea by [facility]. Pt does not want CPAP toothache1 Pt c/o right low er toothache for 2 days. Pt feels right jaw and right ear pain. Pt denies any fever or facial swelling. Pt seen his dentist who told him that he needs to see oral surgeon and he is trying to make appointment in [place]. Pt states that he tried iburpofen but not helping with pain. He has been taking norco for toothache anxiety1 Pt has chronic a nxiety and depression. Pt takes celexa and xanax PRN and doing ok. Pt denies any suicidal or homicdial thought neck pain1 pt has chornic n asim pain Pt denies any wrosening pain. Pt deneis any radiculopathy LFT Pt has mildly hi gh lft. Pt does not drink excessive amount of alcohol. pt denies any abd pain Pt denies any GERD. Pt is off omeprazole. Pt does not want to see Dr.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
--- OUTSIDE RECORDS SUMMARY | 2025-04-06 08:45 | XMS_ITS | Clinical Summary ---
Author Organization [facility] Address [facility] [place] [address] Care Team Providers Care Grounds/Maintenance Specialist Name Role Phone Mitul Valderrama MD Primary Care Provider [phone] Allergies No known active allergies Medications ALPRAZolam 0.25 MG tablet Take 0.25 mg by mouth daily as needed. 04/25/2019 Active atorvastatin 40 MG tablet Take 40 mg by mouth daily. 04/25/2019 Active metoprolol tartrate 50 MG tablet Take by mouth 2 (two) times daily. Active citalopram 20 MG tablet Take 20 mg by mouth daily. 04/17/2019 Active albuterol sulfate HFA 108 (90 Base) MCG/ACT inhaler Inhale 1 puff into the lungs every 4 (four) hours as needed. 0 01/31/2019 Active Active Problems No known active problems Social History Tobacco Use Types Packs/Day Years Used Date Smoking Tobacco: Light Smoker Cigarettes Smokeless Tobacco: Never Sex and Gender Information Value Date Recorded Sex Assigned at Not on file Legal Sex Male 5:14 PM CDT Gender Identity Not on file Sexual Orientation Not on file Last Filed Vital Signs Vital Sign Reading Time Taken Comments Blood Pressure 149/106 06/28/2020 4:55 PM CDT Pulse 88 06/28/2020 4:55 PM CDT Temperature 36.8 C (98.3 F) 06/28/2020 4:55 PM CDT Respiratory Rate 18 06/28/2020 4:55 PM CDT Oxygen Saturation 97% 06/28/2020 4:55 PM CDT Inhaled Oxygen Concentration - - Weight 81.6 kg (180 lb) 06/28/2020 4:55 PM CDT Height 167.6 cm (5' 6) 06/28/2020 4:55 PM CDT Body Mass Index 29.05 06/28/2020 4:55 PM CDT Plan of Treatment Health Maintenance Due Date Last Done Comments Colorectal Cancer Screening Colonoscopy (10 Years) 1972 Annual Physical 1975 Hepatitis C 1990 DTaP, Tdap and Td Vaccines ( 1 - Tdap) 1991 Hepatitis B Vaccines (1 of 3 - 19+ 3-dose series) 1991 Pneumococcal Vaccine: 50+ Ye ars (1 of 2 - PCV) 1991 Zoster Vaccines (1 of 2) 2022 COVID-19 Vaccine (1 - 2023-2 5 season) 2024 Meningococcal B Vaccine Aged Out No l onger eligible based on patient's age to complete this topic Meningococcal Vaccine Aged Out No magalie syed eligible based on patient's age to complete this topic RSV Immunizations Under 20 Months Aged Out No longer eligible based on patient's age to complete this topic Insurance Care Teams Grounds/Maintenance Specialist Relationship Specialty Start Date End Date Mitul Valderrama MD PCP - General FAMILY PRACTICE 04/29/19
--- OUTSIDE RECORDS SUMMARY | 2025-04-06 08:45 | XMS_ITS | Encounter Summary ---
Author Organization [facility] Address [facility] [place] [address] Care Team Providers Care Supervisor [employer] Name Role Phone Kenneth Hurst MD Primary Care Provider Unavailable Mitul Valderrama MD Primary Care Provider [phone] Encounter Details Date Type Department Care Team (Late st Contact Info) Description 07/17/2017 [place] [address] Kenneth Hurst MD Social History Tobacco Use Types Packs/Day Years Used Date Smoking Tobacco: Never Assessed Sex and Gender Information Value Date Recorded Sex Assigned at Not on file Legal Sex Male 5:14 PM CDT Gender Identity Not on file Sexual Orientation Not on file documented as of this encounter Plan of Treatment Not on file documented as of this encounter Visit Diagnoses Not on filedocumented in this encounter Care Teams Supervisor [employer] Relationship Specialty Start Date End Date Kenneth Hurst MD PCP - General 06/19/15 Mitul Valderrama MD PCP - General FAMILY PRACTICE 04/29/19 documented as of this encounter
--- OUTSIDE RECORDS SUMMARY | 2025-04-06 08:45 | XMS_ITS | Continuity of Care Document ---
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 Name Role Phone Mitul Valderrama MD Unavailable Unavailable Allergies, Adverse Reactions, Alerts Substance Reaction Status Criticality No Known Allergies Active No Inform ation Medications Medication Instructions Dosage Effective Dates (start - stop) Status Comments hydrocodone 7.5 mg-acetaminophen 325 mg tablet take 1 tablet by oral route 2 times every day as needed for pain as needed 1 tablet - Active PRN for pain ,avoid driving or operate machines Ritalin 10 mg tablet take 1 Tablet by oral route 2 times every day 10 MG - Active Xanax 0.25 mg tablet take 1 tablet by oral route every 4 - 6 hours as needed 0.25 MG - Active PRN for anxiety, avoid driving or operate machine, max 2/24 hours omeprazole 40 mg capsule,delayed release take 1 capsule by oral route every day before a meal 40 MG - Active Celexa 20 mg tablet take 1 tablet by oral route every day 20 MG - Active metoprolol tartrate 50 mg tablet take 1 tablet by oral route 2 times every day with meals 50 MG - Active ranolazine ER 500 mg tablet,extended release,12 hr take 1 tablet by oral route 2 times every day 500 MG - Active Crestor 40 mg tablet take 1 tablet by oral route every day 40 MG - Active Plavix 75 mg tablet take 1 tablet by oral route every day 75 MG - Active Norvasc 5 mg tablet take 1 tablet by oral route every day 5 MG - Active Procedures Procedure Date OFFICE/OUTPATIENT [...] Diagnoses Date Provider Providers Copied on Encounter [facility], [address], [place], [place], [address], [place] tel:[phone] [facility] No Information Lavelle Bauman. [address], [place], [place], [address] , [place]. tel:[phone] OFFICE/OUTPA TIENT VISIT, [facility], [address], [place], [place], [address], [place] tel:[phone] [facility] anxiety1 (chief complaint) ADD (chief complaint) pain (chief complaint) GERD1 (chief complaint) Attention deficitChronic pain syndromeGeneralized Anxiety DisorderGERD w/o esophagitis Lavelle Bauman. [address], [place], [place], [address] , [place]. tel:[phone] OFFICE/OUTPA TIENT VISIT, [facility], [address], [place], [place], [address], [place] tel:[phone] [facility] anxiety1 (chief complaint) ADD (chief complaint) pain (chief complaint) GERD1 (chief complaint) GERD w/o esophagitisGenerali zed Anxiety DisorderAttention deficitChronic pain syndrome Lavelle Bauman. [address], [place], [place], [address] , [place]. tel:[phone] OFFICE/OUTPA TIENT VISIT, [facility], [address], [place], [place], [address], [place] tel:[phone] [facility] anxiety1 (chief complaint) ADD (chief complaint) pain (chief complaint) Chronic pain syndromeAttention deficitGeneralized Anxiety Disorder 4 Lavelle Pimentel [address], [place], [place], [address] , [place]. tel:[phone] OFFICE/OUTPA TIENT VISIT, [facility], [address] [place], [place], [address], [place] [phone] [facility] anxiety1 (chief complaint) ADD (chief complaint) pain (chief complaint) HTN (chief complaint) cough1 (chief complaint) Attention deficitChronic pain syndromeGeneralized Anxiety DisorderEssential (primary) hypertensionAcute bronchitis 4 Lavelle Pimentel [address] [facility] [place], [address] , [place]. tel:[phone] OFFICE/OUTPA TIENT VISIT, [facility], [address] [place], [place], [address], [place] tel:[phone] [facility] thyroid1 (chief complaint) HLP (chief complaint) low t (chief complaint) anxiety1 (chief complaint) neck pain1 (chief complaint) ADD (chief complaint) Mixed hyperlipidemiaTesti cular hypogonadismCramp and spasmDisorder of thyroid, unspecifiedGenerali zed Anxiety DisorderChronic pain syndromeAttention deficit 4 Lavelle Pimentel [address], [place], [place], [address] , [place]. tel:[phone] OFFICE/OUTPA TIENT VISIT, [facility], [address] [place], [address], [place] [phone] [facility] leg pain1 (chief complaint) glucose1 (chief complaint) fatty liver1 (chief complaint) HLP (chief complaint) thyroid1 (chief complaint) T (chief complaint) Mixed hyperlipidemiaHyper glycemiaFatty liverDisorder of thyroid, unspecifiedTesticul ar hypogonadismCramp and spasmNon-ST elevation (NSTEMI) myocardial infarction 4 Lavelle Pimentel [address], [place], [place], [address] , [place]. tel: [phone] OFFICE/OUTPA TIENT VISIT, EST [facility], [address], [place], [place], [address], [place] tel:[phone] [facility] CAD (chief complaint) pain (chief complaint) ADD (chief complaint) anxiety1 (chief complaint) Non-ST elevation (NSTEMI) myocardial infarctionGeneraliz ed Anxiety DisorderAttention deficitChronic pain syndrome 4 Lavelle Bauman. [address], [place], [place], [address] , [place]. [phone] OFFICE/OUTPA TIENT VISIT, EST [facility], [address] [place], [address], [place] tel:[phone] [facility] anxiety1 (chief complaint) pain (chief complaint) CAD (chief complaint) ADD (chief complaint) Chronic pain syndromeAttention deficitGeneralized Anxiety DisorderMixed hyperlipidemiaEssen tial (primary) hypertension 3 Lavelle Bauman. [address], [place], [place], [address] , [place]. [phone] PREV VISIT, EST, AGE 40-64 [facility], [address], [place], [place], [address], [place] tel:[phone] [facility] physical (chief complaint) Encounter for general adult medical examination without abnormal findings 3 Lavelle Bauman. [address], [place], [place], [address] , [place]. [phone] OFFICE/OUTPA TIENT VISIT, EST [facility], [address] [place], [address], [place] tel:[phone] [facility] ADD (chief complaint) aniety1 (chief complaint) pain (chief complaint) ED (chief complaint) Chronic pain syndromeGeneralized Anxiety DisorderAttention deficitMale erectile dysfunction, unspecifiedEncounte r for screening for malignant neoplasm of colon 3 Lavelle Bauman. [address], [place], [place], [address] , [place]. tel:[phone] OFFICE/OUTPA TIENT VISIT, EST [facility], [address], [place], [place], [address], [place] tel:[phone] [facility] ADD (chief complaint) anxiety1 (chief complaint) pain (chief complaint) sick1 (chief complaint) Attention deficitChronic pain syndromeGeneralized Anxiety DisorderAcute bronchitis 2 Lavelle Bauman. [address], [place], [place], [address] , [place]. tel:[phone] OFFICE/OUTPA TIENT VISIT, EST [facility], [address], [place], [place], [address], [place] tel:[phone] [facility] anxiety1 (chief complaint) ADD (chief complaint) pain (chief complaint) HLP (chief complaint) HTN (chief complaint) Mixed hyperlipidemiaEssen tial (primary) hypertensionGeneral ized Anxiety DisorderChronic pain syndromeAttention deficit 2 Lavelle Bauman. [address], [place], [place], [address] , [place]. [phone] PREV VISIT, EST, AGE 40-64 [facility], [address], [place], [place], [address], [place] tel:[phone] [facility] physical (chief complaint) Encounter for general adult medical examination without abnormal findings 2 Lavelle Bauman. [address], [place], [place], [address] , [place]. [phone] OFFICE/OUTPA TIENT VISIT, EST [facility], [address], [place], [place], [address], [place] tel:[phone] [facility] hemorrhoid 1 (chief complaint) ear pain1 (chief complaint) HemorrhoidOtalgia, right ear 1 Lavelle Bauman. [address], [place], [place], [address] , [place]. tel:[phone] OFFICE/OUTPA TIENT VISIT, EST [facility], [address], [place], [place], [address], [place] tel:[phone] [facility] ADD (chief complaint) anxiety1 (chief complaint) HLP (chief complaint) HTN (chief complaint) gallbladde r1 (chief complaint) pain (chief complaint) Chronic pain syndromeEssential (primary) hypertensionGeneral ized Anxiety DisorderHyperlipide miaAcute cholecystitisAttent ion deficitFamily history of malignant neoplasm of prostate 1 Lavelle Pimentel [address], [place], [place], [address] , [place]. tel:[phone] OFFICE/OUTPA TIENT VISIT, EST [facility], [address], [place], [place], [address], [place] tel:[phone] [facility] pain (chief complaint) pain (chief complaint) toothache1 (chief complaint) Chronic pain syndromeAbdominal painAtypical facial pain 1 Lavelle Pimentel [address], [place], [place], [address] , [place]. tel:[phone] OFFICE/OUTPA TIENT VISIT, EST [facility], [address] [place], [address], [place] tel:[phone] [facility] HLP (chief complaint) ADD (chief complaint) pain (chief complaint) abd pain1 (chief complaint) anxiety1 (chief complaint) Essential (primary) hypertensionGeneral ized Anxiety DisorderChronic pain syndromeHyperlipide miaAttention deficitAbdominal pain 1 Lavelle Pimentel [address], [place], [place], [address] , [place]. tel:[phone] PREV VISIT, EST, AGE 40-64 [facility], [address], [place], [place], [address], [place] tel:[phone] [facility] physical (chief complaint) Encounter for general adult medical examination without abnormal findings 0 Lavelle Pimentel [address], [place], [place], [address] , [place]. tel:[phone] OFFICE/OUTPA TIENT VISIT, [facility], [address], [place], [place], [address], [place] tel:[phone] [facility] abd pain1 (chief complaint) ADD (chief complaint) chronic pain1 (chief complaint) HTN (chief complaint) Chronic pain syndromeGeneralized Anxiety DisorderEssential (primary) hypertensionAttenti on deficitSleep apnea May- 0 Lavelle Bauman. [address], [place], [place], [address] , [place]. tel:[phone] OFFICE/OUTPA TIENT VISIT, [facility], [address], [place], [place], [address], [place] tel:[phone] [facility] abd pain1 (chief complaint) pain (chief complaint) anxiety1 (chief complaint) fatigue1 (chief complaint) Chronic pain syndromeGeneralized Anxiety DisorderSleep apneaGERD w/o esophagitis 0 Lavelle Bauman. [address], [place], [place], [address] , [place]. tel:[phone] Referring Provider: [address], [place], [place], [address]. tel:[phone] OFFICE/OUTPA TIENT VISIT, [facility], [address], [place], [place], [address], [place] tel:[phone] [facility] GERD1 (chief complaint) pain (chief complaint) anxiety1 (chief complaint) fatigue1 (chief complaint) GERD w/o esophagitisChronic pain syndromeGeneralized Anxiety DisorderFatigue 0 Lavelle Bauman. [address], [place], [place], [address] , [place]. tel:[phone] Referring Provider: Kurt Herrera [address], [place], [place], [address]. tel:[phone] OFFICE/OUTPA TIENT VISIT, [facility], [address], [place], [place], [address], [place] tel:[phone] [facility] HLP (chief complaint) back pain1 (chief complaint) ADD (chief complaint) HTN (chief complaint) anxiety1 (chief complaint) HyperlipidemiaEssen tial (primary) hypertensionSleep apneaGeneralized Anxiety DisorderChronic pain syndromeGERD w/o esophagitis 9 Lavelle Bauman. [address], [place], [place], [address] , [place]. [phone] Referring Provider: Kurt Herrera [address], [place], [place], [address]. tel:[phone] OFFICE/OUTPA TIENT VISIT, EST [facility], [address], [place], [place], [address], [place] tel:[phone] [facility] HLP (chief complaint) anxiety1 (chief complaint) weight loss1 (chief complaint) back pain1 (chief complaint) HyperlipidemiaAbnor mal weight lossGeneralized Anxiety DisorderChronic pain syndrome 9 Lavelle Bauman. [address], [place], [place], [address] , [place]. tel:[phone] Referring Provider: Kurt Herrera [address], [place], [place], [address]. tel:[phone] PREV VISIT, EST, AGE 40-64 [facility], [address], [place], [place], [address], [place] tel:[phone] [facility] PHysical (chief complaint) Encntr for general adult medical exam w/o abnormal findings 9 Lavelle Bauman. [address], [place], [place], [address] , [place]. tel:[phone] Referring Provider: Kurt Herrera [address], [place], [place], [address]. tel:[phone] OFFICE/OUTPA TIENT VISIT, EST [facility], [address], [place], [place], [address], [place] tel:[phone] [facility] anxiety1 (chief complaint) fatigue1 (chief complaint) chronic pain1 (chief complaint) Generalized Anxiety DisorderChronic pain syndromeFatigueAtte ntion deficit 9 Lavelle Bauman. [address], [place], [place], [address] , [place]. [phone] Referring Provider: Kurt Herrera [address], [place], [place], [address]. tel:[phone] OFFICE/OUTPA TIENT VISIT, [facility], [address], [place], [place], [address], [place] [phone] [facility] sleep apnea1 (chief complaint) chronic pain1 (chief complaint) gastroente ritis1 (chief complaint) HTN (chief complaint) HLP (chief complaint) HyperlipidemiaSleep apneaLeukocytosisVi ral infectionEssential (primary) hypertension 9 Lavelle Pimentel [address], [place], [place], [address] , [place]. [phone] Referring Provider: Kurt Herrera [address], [place], [place], [address]. tel:[phone] OFFICE/OUTPA TIENT VISIT, [facility], [address], [place], [place], [address], [place] tel:[phone] [facility] fatty liver1 (chief complaint) chronic pain1 (chief complaint) anxiety1 (chief complaint) ADD (chief complaint) sleep apnea1 (chief complaint) HLP (chief complaint) Attention deficitGeneralized Anxiety DisorderSleep apneaFatty liverHyperlipidemia Chronic pain syndrome 8 Lavelle Bauman. [address], [place], [place], [address] , [place]. [phone] Referring Provider: Kurt Herrera [address], [place], [place], [address]. tel:[phone] OFFICE/OUTPA TIENT VISIT, [facility], [address], [place], [place], [address], [place] tel:[phone] [facility] sleep apnea1 (chief complaint) alcohol1 (chief complaint) chronic pain1 (chief complaint) anxiety1 (chief complaint) ADD (chief complaint) Sleep apneaLiver diseaseChronic pain syndromeGeneralized Anxiety DisorderAttention deficitAlcohol dependence 8 Lavelle Pimentel [address], [place], [place], [address] , [place]. tel:[phone] PREV VISIT, EST, AGE 40-64 [facility], [address], [place], [place], [address], [place] tel:[phone] [facility] Physical (chief complaint) HyperlipidemiaSleep apneaLiver diseaseHemorrhoidEn counter for general adult medical exam w abnormal findings 8 Lavelle Pimentel [address], [place], [place], [address] , [place]. [phone] Referring Provider: Kurt [address], [place], [place], [address]. tel:[phone] OFFICE/OUTPA TIENT VISIT, EST [facility], [address], [place], [place], [address], [place] tel:[phone] [facility] sleep apnea1 (chief complaint) HLP (chief complaint) LFT (chief complaint) anxiety1 (chief complaint) ADD1 (chief complaint) Sleep apneaLiver diseaseHyperlipidem iaChronic pain syndrome 8 Lavelle [address], [place], [place], [address] , [place]. tel:[phone] Referring Provider: Kurt [address], [place], [place], [address]. tel:[phone] OFFICE/OUTPA TIENT VISIT, EST [facility], [address], [place], [place], [address], [place] tel:[phone] [facility] toothache1 (chief complaint) HTN (chief complaint) sleep apnea1 (chief complaint) Sleep apneaAtypical facial pain 8 Lavelle Bauman. [address], [place], [place], [address] , [place]. tel:[phone] Referring Provider: Kurt Herrera [address], [place], [place], [address]. tel:[phone] OFFICE/OUTPA TIENT VISIT, [facility], [address], [place], [place], [address], [place] tel:[phone] [facility] anxiety1 (chief complaint) neck pain1 (chief complaint) LFT (chief complaint) ADD1 (chief complaint) sinus (chief complaint) fatigue1 (chief complaint) Liver diseaseGeneralized Anxiety DisorderAcute sinusitisFatigue 8 Lavelle Bauman. [address], [place], [place], [address] , [place]. tel:[phone] Referring Provider: Kurt Herrera [facility], [place], [place], [address]. tel:[phone] OFFICE/OUTPA TIENT VISIT, [facility], [address], [place], [place], [address], [place] tel:[phone] [facility] ADD (chief complaint) GERD1 (chief complaint) sinus1 (chief complaint) neck pain1 (chief complaint) anxiety1 (chief complaint) HyperlipidemiaGener alized Anxiety DisorderLiver diseaseAttention deficit 7 Lavelle Pimentel [address], [place], [place], [address] , [place]. tel:[phone] Referring Provider: Kurt Herrera [address], [place], [place], [address]. tel:[phone] OFFICE/OUTPA TIENT VISIT, [facility], [address], [place], [place], [address], [place] tel:[phone] [facility] GERD1 (chief complaint) lFT (chief complaint) HLP (chief complaint) anxiety1 (chief complaint) ADD (chief complaint) HyperlipidemiaLiver diseaseAttention deficitGERD w/o esophagitis 7 Lavelle Bauman. [address], [place], [place], [address] , [place]. tel:[phone] Referring Provider: Kurt Her[address], [place], [place], [address]. tel:[phone] OFFICE/OUTPA TIENT VISIT, [facility], [address], [place], [place], [address], [place] tel:[phone] [facility] gERD1 (chief complaint) anxiety1 (chief complaint) neck pain1 (chief complaint) HLP (chief complaint) Generalized Anxiety DisorderChronic pain syndromeGERD w/o esophagitisHyperlip idemia 7 Lavelle Bauman. [address], [place], [place], [address] , [place]. tel:[phone] Referring Provider: [address], [place], [place], [address]. tel:[phone] OFFICE/OUTPA TIENT VISIT, [facility], [address], [place], [place], [address], [place] tel:[phone] [facility] anxiety1 (chief complaint) CAD (chief complaint) neck pain1 (chief complaint) HLP (chief complaint) Generalized Anxiety DisorderEssential (primary) hypertensionCoronar y artery disease of [place] coronary artery without angina pectorisHyperlipide azul 7 Lavelle Bauman. [address], [place], [place], [address] , [place]. tel:[phone] Referring Provider: Kurt Herrera [address], [place], [place], [address]. tel:[phone] PREV VISIT, EST, AGE 40-64 [facility], [address], [place], [place], [address], [place] tel:[phone] [facility] Physical (chief complaint) Encounter for general adult medical exam w abnormal findingsHyperlipide [facility] diseaseGeneralized Anxiety Disorder Dec- 7 Lavelle Bauman. [address], [place], [place], [address] , [place]. tel:[phone] Referring Provider: Mitul Valderrama, [address], [place], [place], [address]. tel:[phone] OFFICE/OUTPA TIENT VISIT, [facility], [address], [place], [place], [address], [place] tel:[phone] [facility] HTN (chief complaint) neck pain1 (chief complaint) Essential (primary) hypertensionCervica lgiaBody mass index (BMI) 32.0-32.9, adult 7 Lavelle Bauman. [address], [place], [place], [address] , [place]. [phone] Referring Provider: Mitul Valderrama [address], [place], [place], [address]. tel:[phone] OFFICE/OUTPA TIENT VISIT, [facility], [address], [place], [place], [address], [place] tel:[phone] [facility] anxiety1 (chief complaint) HLP (chief complaint) CAD (chief complaint) neck pain1 (chief complaint) Essential (primary) hypertensionHyperli pidemiaCervicalgiaG eneralized Anxiety Disorder 7 Lavelle Bauman. [address], [place], [place], [address] , [place]. [phone] Referring Provider: Kurt Herrera [address], [place], [place], [address]. tel:[phone] OFFICE/OUTPA TIENT VISIT, [facility], [address], [place], [place], [address], [place] tel:[phone] [facility] anxiety1 (chief complaint) leg pain1 (chief complaint) neck pain1 (chief complaint) CervicalgiaPain in left lower legPain in unspecified joint 6 Lavelle Bauman. [address], [place], [place], [address] , [place]. tel:[phone] Referring Provider: Mitul Valderrama, [address], [place], [place], [address]. tel:[phone] OFFICE/OUTPA TIENT VISIT, [facility], [address], [place], [place], [address], [place] tel:[phone] [facility] anxiety1 (chief complaint) CAD (chief complaint) neck pain1 (chief complaint) Essential (primary) hypertensionGeneral ized Anxiety DisorderCoronary artery disease of [place] coronary artery w/o angina pectoris 6 Lavelle Bauman. [address], [place], [place], [address] , [place]. [phone] Referring Provider: Kurt Herrera [address], [place], [place], [address]. tel:[phone] OFFICE/OUTPA TIENT VISIT, [facility], [address], [place], [place], [address], [place] tel:[phone] [facility] joint pain1 (chief complaint) anxiety1 (chief complaint) HTN (chief complaint) neck pain1 (chief complaint) Generalized Anxiety DisorderEssential (primary) hypertensionPain in unspecified jointChronic pain syndrome 6 Lavelle Bauman. [address], [place], [place], [address] , [place]. [phone] Referring Provider: Kurt Herrera [address], [place], [place], [address]. tel:[phone] OFFICE/OUTPA TIENT VISIT, [facility], [address], [place], [place], [address], [place] tel:[phone] [facility] anxiety1 (chief complaint) HTN1 (chief complaint) HLP1 (chief complaint) neck pain1 (chief complaint) Generalized Anxiety DisorderEssential (primary) hypertensionHyperli pidemiaChronic pain syndrome 6 Lavelle Pimentel [address], [place], [place], [address] , [place]. [phone] Referring Provider: Kurt Herrera [address], [place], [place], [address]. tel:[phone] PREV VISIT, NEW, AGE 40-64 [facility], [address], [place], [place], [address], tel:[phone] [facility] physical (chief complaint) Encntr for general adult medical exam w/o abnormal findings 6 Valderrama Mitul. [address], [address] [place], [address] , [place]. tel:[phone] Referring Provider: Kurt Her[address], [place], [place], [address]. tel:[phone] Family History Family Member Type Diagnosis Age At Onset Father Problem (finding) CVA Mother Problem (finding) Alive and well Father Problem (finding) Father Problem (finding) prostate CA Brother Problem (finding) Alive and well Payers Payer name Insurance type Covered libertarian ID Authoriza tion(s) No Information Social History [...] eted Goal Tobacco cessation counseling completed Goal Tobacco cessation counseling completed Goal Special diet education compl eted Goal Special diet education compl eted Goal Special diet education compl eted Referral Ordered: COLONOSCOPY AND BIOPSY ordered Referral Referred To: César Gannon [address], [address] [phone] Ordered: Referrals: César Gannon. Evaluate and treat ordered Referral Ordered: UPPER GI W/ KUB ordered Referral Ordered: Physical Therapy (related to Chronic pain syndrome) ordered Referral Ordered: Gastroenterology (related to Abnormal weight loss) ordered Referral Ordered: NUC MED HIDA (HEPATOBILIARY) SCAN ordered Referral Ordered: Referrals: Gastroenterology. Evaluate and treat ordered Referral Referred To: César Gannon MD 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 Pt is noncompliant with cpap. Pt still has not done cpap yet .Pt feels fatigue. Pt takes ritalin for energy and concentration chronic pain1 Pt has chronic n asim pain. Pt denies any radiculopathy. pt takes norco PRN for pain. pt failed NSAID and PT sleep apnea1 Pt has sleep vice [employer] ea. Pt still has not done CPAP [...] any myalgia sleep apnea1 pt has sleep vice [employer]a. Pt has not done cpap yet. [...] with coughing. sleep apnea1 Pt has sleep vice president of [employer] ea Pt finally has appointment with sleep [...] other complaints sleep apnea1 Pt has sleep vice president of [employer] ea. Pt has cpap study scheduled soon [...] which showed postivie for sleep apnea by [facility]. Pt does not want CPAP toothache1 Pt c/o right low er toothache for 2 days. Pt feels right jaw and right ear pain. Pt denies any fever or facial swelling. Pt seen his dentist who told him that he needs to see oral surgeon and he is trying to make appointment in [place]. Pt states that he tried iburpofen but [...] difficulty with attention. Pt is working at [employer] now and he canot focus on reading [...] adult Increase physical activity Relat ed to Attention deficit Quit smoking Related to Atten tion deficit Weight management Related to Att ention deficit Special diet education Related t o [...] sodium diet. Relate d to Hyperlipidemia Prescribed Diet Educ ation/Lifestyle Education Regarding Diet [...]
[2025-04-06 08:48] LABS: Hematocrit 41.5 % (42.0-52.0); Hemoglobin 14.8 g/dL (14.0-18.0); Immature Granulocyte Percent A 0.5 % (0-0.5); Lymphocytes Absolute Auto 1.41 K/mm3 (0.9-3.2); Mean Corpuscular HGB Conc 35.7 g/dl (32-36); Mean Corpuscular Hemoglobin 32.2 pg (26-34); Mean Corpuscular Volume 90.2 fl (80-100); Nucleated Red Blood Cells Absolute Auto 0.000 K/mm3 (0.0-0.012); Nucleated Red Blood Cells Perc 0.0 % (0.0-0.2); Platelet Count Result 223 k/mm3 (150-375); Red Blood Count 4.60 M/mm3 (4.6-6.20); White Blood Count 6.5 K/mm3 (4.5-10.0)
[2025-04-06 09:03] LABS: INR 1.0; Prothrombin Time 12.7 Seconds (11.1-14.7)
[2025-04-06 09:05] LABS: Partial Thromboplastin Time 28.3 Seconds (22.3-36.8)
[2025-04-06 09:15] LABS: Alanine Aminotransferase 49 U/L (6-50); Albumin Level 4.6 g/dL (3.5-5.1); Alkaline Phosphatase 76 U/L (38-126); Anion Gap 9 mmol/L (4-12); Aspartate Amino Transferase 42 U/L (17-59); Bilirubin,Total 0.7 mg/dL (0.2-1.3); Blood Urea Nitrogen 16 mg/dL (9-20); Calcium 9.4 mg/dL (8.4-10.2); Carbon Dioxide 24 mmol/L (22-30); Chloride 104 mmol/L (98-107); Estimated CRCL calculation 70 ml/min; Estimated Glomerular Filt Rate > 60; Glucose 149 mg/dL (65-110); Lipase 150 U/L (23-300); Potassium 3.7 mmol/L (3.4-5.0); Sodium 137 mmol/L (137-145); Total Protein 8.0 g/dL (6.3-8.2)
[2025-04-06] MEDS: LACTATED RINGERS 1,000 ML 999 ML IV CONT (09:15)
[2025-04-06] MEDS: ASPIRIN 81 MG CHEWABLE TABLET 324 MG PO (09:15)
[2025-04-06 09:28] LABS: Troponin I < 0.012 ng/mL (0.000-0.034)
--- NOTE | 2025-04-06 09:29 | ED.GENADULT ---
HPI - General Adult General Chief complaint: Chest Pain Stated complaint: I feel like I'm dehydrated Time Seen by Provider: 04/06/25 08:37 History of Present Illness HPI narrative: 54-year-old male prior history of coronary artery disease multiple stents presents to the emergency department for evaluation for suspected he had heat exhaustion that is been ongoing over the course of the last week. Patient reports last week he was working and the heat and when from sweating to having chills. Patient states remainder of this week he has also been working outside. Patient states he does have some left-sided chest pain but denies any radiation of this chest pain. Patient reports he does have history HI and does have multiple stents. Patient does follow-up with Dr. Wyatt. Related Data Home Medications ?Medication ?Instructions ?Recorded ?Confirmed ?Last Taken ?Type alprazolam 0.25 mg tablet (Xanax) 0.5 mg PO Q4-6H 11/26/20 06/19/24 Unknown History metoprolol succinate 50 mg 50 mg PO BID 11/26/20 06/19/24 12/19/20 07:00 History tablet,extended release 24 hr (Toprol XL) hydrocodone 5 mg-acetaminophen 325 1 tablet PO Q4-6H pain >3 04/29/22 06/19/24 Unknown History mg tablet albuterol sulfate 90 mcg/actuation 2 puff inhalation QID shortness of 06/19/24 06/19/24 Unknown History aerosol inhaler breath or wheezing nitroglycerin 0.4 mg sublingual 0.4 mg sublingual Q5-15M chest pain 06/19/24 06/19/24 Unknown History tablet sertraline 100 mg tablet 100 mg DIRECTED 06/19/24 06/19/24 Unknown History Allergies Allergy/AdvReac Type Severity Reaction Status Date / Time No Known Allergies Allergy Unknown Verified 06/19/24 18:15 Review of Systems Review of Systems: All systems reviewed & are unremarkable except as noted in HPI and below PMFSH Past Medical History Medical History Asthma Bronchitis CAD (coronary artery disease) Heart attack HLD (hyperlipidemia) HTN (hypertension) Hypercholesterolemia Hypertension Mitral valve prolapse SVT (supraventricular tachycardia) Valvular heart disease Surgical History Surgical History H/O heart artery stent x3 History of tonsillectomy Hx laparoscopic cholecystectomy 12/19/20 Family History Family History Mother Patient's mother is in good health Father Patient's father is Lung disease Sibling Patient's brother is in good health Social History Social History Smoking packs per day: 1 Smoking cigarettes per day: 20.0 Years smoked: 20 Smoking pack-years: 20.00 Smoking status: Former smoker Tobacco type: cigarettes Alcohol intake: current Drinks per week: 4 Substance use: never Do You Feel Safe in your Home?: Yes Lack of Transportation: No Lack of Food: Never True Current Housing: I Do Not Have Housing Concerned About Future Housing: No Difficulty Paying Gas/Electric Bills: No Difficulty Paying for Meds: No Currently Unemployed: No Education: Decline to Answer Difficulty w/ Childcare or Family Care: No Living arrangements: with family 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 HEAD: normocephalic, atraumatic. EYES: PERRLA/EOMI, conjunctivae clear. NOSE: Normal no drainage EARS:TMS clear with good light reflex. THROAT: Pharynx clear, no exudate. NECK: Supple. No adenopathy, no masses. RESPIRATORY: Airway patent, respirations nonlabored. Clear to auscultation bilaterally, no rales, rhonchi, wheezing. CARDIOVASCULAR: Regular rate and rhythm without murmurs rubs or gallops. ABDOMINAL: Soft, nontender, nondistended, normal bowel sounds MUSCULOSKELETAL: Moves all extremities. Strength/ROM intact, No edema, No calf tenderness. NEURO: Alert. Cranial nerves II through XII intact. Good gait. Good coordination SKIN: Warm, dry. Normal Color Course Vital Signs Vital signs: Vital Signs Pulse Rate 74 04/06/25 08:32 Respiratory Rate 15 04/06/25 08:32 Pulse Oximetry 100 04/06/25 08:32 Temperature 98.7 F 04/06/25 12:54 Pulse Rate 64 04/06/25 12:54 Respiratory Rate 15 04/06/25 12:54 Blood Pressure 156/100 H 04/06/25 12:54 Pulse Oximetry 97 04/06/25 12:54 Medical Decision Making [facility] Narrative Medical decision making narrative: 54-year-old male present to the emergency department for evaluation for chest pain. Patient is afebrile with no leukocytosis hemoglobin of 14.8. INR is 1.0. Patient does not have an elevated D-dimer. Patient has no acute abnormalities on his CMP including normal kidney function normal Mag negative lactic negative lipase and negative serial troponins and a normal CPK. Chest x-ray shows no acute cardiopulmonary abnormality. I do suspect dehydration but no evidence heat stroke. No evidence of heart strain. Patient was encouraged close follow-up with his physicians. All questions concerns were addressed. Differential Diagnosis Differential Diagnosis: ACS, NSTEMI, STEMI, atypical chest pain, pulmonary embolism, dehydration Vital Signs Vital Signs: Vital Signs Pulse Rate 74 04/06/25 08:32 Respiratory Rate 15 04/06/25 08:32 Pulse Oximetry 100 04/06/25 08:32 Temperature 98.7 F 04/06/25 12:54 Pulse Rate 64 04/06/25 12:54 Respiratory Rate 15 04/06/25 12:54 Blood Pressure 156/100 H 04/06/25 12:54 Pulse Oximetry 97 04/06/25 12:54 Lab Data Lab results reviewed: Yes I reviewed the patient's lab results. 04/06/25 08:41 04/06/25 08:41 Labs: Lab Results 04/06/25 04/06/25 Range/Units 08:41 11:19 WBC 6.5 (4.5-10.0) K/mm3 RBC 4.60 (4.6-6.20) M/mm3 Hgb 14.8 (14.0-18.0) g/dL Hct 41.5 L (42.0-52.0) % MCV 90.2 (80-100) fl MCH 32.2 (26-34) pg MCHC 35.7 (32-36) g/dl RDW 12.5 (11.5-14.5) % Plt Count 223 (150-375) k/mm3 MPV 9.3 (7.4-10.4) fl Immature Gran % (Auto) 0.5 (0-0.5) % Neut % (Auto) 71.2 (45.5-73.1) % Lymph % (Auto) 21.6 (18.3-44.2) % [place] % (Auto) 5.8 (2.6-8.5) % Eos % (Auto) 0.6 (0-4.4) % Baso % (Auto) 0.3 (0.2-1.2) % Lymph # (Auto) 1.41 (0.9-3.2) K/mm3 [place] # (Auto) 0.4 (0.1-0.6) K/mm3 Eos # (Auto) 0.0 (0-0.3) K/mm3 Baso # (Auto) 0.0 (0.0-0.1) K/mm3 Abs Immat Gran (auto) 0.03 (0.00-0.031) K/mm3 Absolute Neuts (auto) 4.6 (1.3-6.7) K/mm3 Absolute Nucleated RBC 0.000 (0.0-0.012) K/mm3 Nucleated RBC % 0.0 (0.0-0.2) % PT 12.7 (11.1-14.7) Seconds INR 1.0 APTT 28.3 (22.3-36.8) Seconds D-Dimer < 0.27 (<0.48) ug/mL Sodium 137 (137-145) mmol/L Potassium 3.7 (3.4-5.0) mmol/L Chloride 104 (98-107) mmol/L Carbon Dioxide 24 (22-30) mmol/L Anion Gap 9 (4-12) mmol/L BUN 16 (9-20) mg/dL Creatinine 0.98 (0.7-1.3) mg/dL Estim Creat Clear Calc 70 ml/min Estimated GFR > 60 (59 - ) Glucose 149 H (65-110) mg/dL Calcium 9.4 (8.4-10.2) mg/dL Magnesium 2.0 (1.6-2.3) mg/dL Total Bilirubin 0.7 (0.2-1.3) mg/dL AST 42 (17-59) U/L ALT 49 (6-50) U/L Alkaline Phosphatase 76 (38-126) U/L Total Creatine Kinase 105 (55-170) U/L Troponin I < 0.012 < 0.012 (0.000-0.034) ng/mL Total Protein 8.0 (6.3-8.2) g/dL Albumin 4.6 (3.5-5.1) g/dL Lipase 150 (23-300) U/L Imaging Data Radiologist's impression: Impressions Chest X-Ray 04/06/25 09:09 IMPRESSION: 1: NO ACUTE CARDIOPULMONARY DISEASE. ECG Data EKG #1: EKG Interpretation: bradycardia, sinus rhythm, no ectopy, non-specific ST changes, normal QRS, normal QT and NL axis Discharge Plan Discharge Clinical Impression: Dehydration Chest pain Qualifiers: Chest pain type: unspecified Qualified Code(s): R07.9 - Chest pain, unspecified Patient Disposition: Home Condition: Stable Instructions: Antibiotic Form, Chest Pain (ED), Heat Exhaustion (ED) Additional Instructions: Have close follow-up with your primary care physician and with cardiology for additional outpatient cardiac testing. Drink plenty of fluids. If you have any worsening symptoms then please call or return to the emergency department. Patient Language: Turkish Prescriptions: No Action hydrocodone-acetaminophen 5-325 mg tablet 1 tablet PO Q4-6H metoprolol succinate [Toprol XL] 50 mg Tablet Extended Release 24 Hr 50 mg PO BID alprazolam [Xanax] 0.25 mg Tablet 0.5 mg PO Q4-6H sertraline 100 mg tablet 100 mg DIRECTED nitroglycerin 0.4 mg tablet, sublingual 0.4 mg sublingual Q5-15M Rx Instructions: do not exceed 3 doses per episode albuterol sulfate 90 mcg/actuation HFA aerosol inhaler 2 puff inhalation QID prednisone 20 mg tablet 40 mg PO DAILY 5 Days Qty: 10 0RF clopidogrel 75 mg Tablet 75 mg PO QAM Qty: 90 3RF amlodipine [Norvasc] 5 mg Tablet 5 mg PO QAM Qty: 90 3RF aspirin 81 mg Tablet,Delayed Release (Dr/Ec) 81 mg PO QAM Qty: 90 3RF rosuvastatin 40 mg tablet 40 mg PO QAM Qty: 90 3RF Follow-up/Referrals: Mitul Valderrama MD [Primary Care Provider] - Stand Alone Forms: Work/School Release IP Quality HEART score for chest pain patients History: slightly suspicious ECG: normal Age: > 45 and < 65 years Risk factors: > or = to 3 risk factors of atherosclerotic disease Troponin: < or = to 1x normal limit Heart score: 3
[2025-04-06 09:49] LABS: Creatine Kinase 105 U/L (55-170); Magnesium 2.0 mg/dL (1.6-2.3)
--- NOTE | 2025-04-06 11:14 | ECG_ITS ---
Test Date: 2025-04-06 11:22:43 Measurements Intervals [place] Rate: 56 P: 34 OK: 202 QRS: -5 QRSD: 120 T: 12 QT: 422 QTc: 407 Interpretive Statements SINUS BRADYCARDIA POSSIBLE LEFT ATRIAL ENLARGEMENT [-0.1mV P-WAVE IN V1/V2] INCOMPLETE RIGHT BUNDLE BRANCH BLOCK WITH REPOL CHANGES; CANNOT RULE OUT ISCHEMIA Compared to ECG 04/06/2025 08:34:32 Possible ischemia still present Electronically Signed On 04-07-2025 18:36:41 CDT by Maximilian Michael M.D.
[2025-04-06 12:02] LABS: Troponin I < 0.012 ng/mL (0.000-0.034)
[2025-04-06] MEDS: KETOROLAC 15 MG/ML VIAL (*BKC) IV PUSH (12:05)
== END 2025-04-06 12:54 | disposition home or self-care (01) ==
PROVIDERS: Emergency Provider Emergency Medicine; PCP Emergency Medicine
DX: E86.0 Dehydration (principal); R07.9 Chest pain, unspecified; I25.10 Atherosclerotic heart disease of native coronary artery without angina pectoris; I25.2 Old myocardial infarction; I10 Essential (primary) hypertension; I34.1 Nonrheumatic mitral (valve) prolapse; I38 Endocarditis, valve unspecified; J45.909 Unspecified asthma, uncomplicated; E78.00 Pure hypercholesterolemia, unspecified; Z95.5 Presence of coronary angioplasty implant and graft; Z90.49 Acquired absence of other specified parts of digestive tract; R00.1 Bradycardia, unspecified; I45.10 Unspecified right bundle-branch block; R94.31 Abnormal electrocardiogram [ECG] [EKG]
CPT/HCPCS: 36415; 71046; 80053; 82550; 83690; 83735; 84484; 85025; 85380; 85610; 85730; 93005; 96361; 96374; 99284; A9270; J1885; J7120